=== PATIENT | male | born 1965 | race Caucasian/White ===

== ENCOUNTER 2017-05-29 16:32 | Inpatient (IN) | payer MEDICARE, MEDICAID ==
[~2017-05-29] VITALS: Ht 180.3 cm; Wt 77.1 kg
[~2017-05-29 16:32] MED LIST: CARV6.2551 PO; CHOL1CAP15 OR; FOLI1TAB6 PO; HYDR-3546 OR; IBUP400T21 PO; LISI10TA6 PO; SPIRPOW XX
[2017-05-29] MEDS ORDERED: SODIUM CHLORIDE 0.9% 1,000 ML IV ONE (16:36)
[2017-05-29] MEDS ORDERED: ASPirin 81 mg TAB PO ONE (16:45)
[2017-05-29 17:29] LABS: Basophils # (auto) 0 uL; Basophils % (auto) 0.2 % (0.0-2.0); CONDITION Y; Eosinophils # (auto) 0.1 uL; Eosinophils % (auto) 1.2 % (0.0-7.0); Hematocrit 46.9 % (41.0-53.0); Hemoglobin 16.1 g/dL (13.5-17.5); Lymphocytes # (auto) 1.2 uL; Lymphocytes % (auto) 16.7 % (10.0-50.0); Mean Corpuscular Hemoglobin 28.1 pg (28.0-32.0); Mean Corpuscular Hgb Conc. 34.4 g/dL (32.0-36.0); Mean Corpuscular Volume 81.6 fL (80.0-100.0); Mean Platelet Volume 9.3 fL (7.4-10.4); Monocytes # (auto) 0.5 uL; Monocytes % (auto) 6.3 % (0.0-12.0); Neutrophils # (auto) 5.5 uL; Neutrophils % (auto) 75.6 % (37.0-80.0); Platelet Count (auto) 209 10^3/uL (140-450); Red Cell Distribution Width 13.7 % (11.6-16.0); White Blood Cell 7.3 10^3/uL (4.4-10.8)
[2017-05-29 17:47] LABS: INR 0.99 (0.9-1.15); Partial Thromboplastin Time 31.3 sec (22.64-33.71); Prothrombin Time 10.8 sec (9.37-12.3)
[2017-05-29 17:49] LABS: Albumin 4.6 g/dL (3.4-5.0); BUN/Creatinine Ratio 57.1; Bilirubin, Total 0.5 mg/dL (0.2-1.0); Calcium 9.8 mg/dL (8.5-10.1); Potassium 3.7 mmol/L (3.5-5.1); Total Protein 8.6 g/dL (6.4-8.2)
[2017-05-29 19:30] LABS: Urine Bilirubin Negative (Negative); Urine Blood Negative /uL (Negative); Urine Color Yellow (Yellow); Urine Glucose Normal (Normal); Urine Ketone Negative (Negative); Urine Nitrite Negative (Negative); Urine RBC <1 /hpf (0 - 3); Urine Urobilinogen Normal (Negative); Urine pH 8.5 (5.0-8.0)
[2017-05-29] MEDS: FAMOTIDINE 20 MG TAB PO SCH (22:00)
[2017-05-29] MEDS: CARVEDILOL 3.125 MG TAB PO SCH (22:00)
[2017-05-29] MEDS ORDERED: MORPHINE SULF INJ 2 MG/ML SYRINGE 1ML IV PRN (22:00)
[2017-05-29] MEDS ORDERED: TEMAZEPAM 15 MG CAP PO PRN (22:00)
[2017-05-29] MEDS ORDERED: ONDANSETRON HCL 4 MG/2 ML VIAL IV PRN (22:00)
[2017-05-29] MEDS ORDERED: ACETAMINOPHEN 325 MG TAB PO PRN (22:00)
[2017-05-29] MEDS ORDERED: NITROGLYCERIN 0.4 MG SL TAB SL PRN (22:00)
[2017-05-29 23:00] VITALS: BP 128/85
[2017-05-29] MEDS ORDERED: FENO145T20 PO (23:48)
[2017-05-29] MEDS ORDERED: CHOL20009 PO (23:48)
[2017-05-29] MEDS ORDERED: SPIR25TA89 PO (23:48)
[2017-05-30 05:00] VITALS: BP 119/71
[2017-05-30 06:35] LABS: Basophils # (auto) 0 uL; Basophils % (auto) 0.3 % (0.0-2.0); CONDITION Y; Eosinophils # (auto) 0.1 uL; Eosinophils % (auto) 2.9 % (0.0-7.0); Hematocrit 40.8 % (41.0-53.0); Lymphocytes # (auto) 1.8 uL; Lymphocytes % (auto) 38.1 % (10.0-50.0); Mean Corpuscular Hemoglobin 28.2 pg (28.0-32.0); Mean Corpuscular Hgb Conc. 34.2 g/dL (32.0-36.0); Mean Corpuscular Volume 82.4 fL (80.0-100.0); Mean Platelet Volume 9.4 fL (7.4-10.4); Monocytes # (auto) 0.4 uL; Monocytes % (auto) 8.2 % (0.0-12.0); Neutrophils # (auto) 2.4 uL; Neutrophils % (auto) 50.5 % (37.0-80.0); Platelet Count (auto) 173 10^3/uL (140-450); Red Cell Distribution Width 13.6 % (11.6-16.0); White Blood Cell 4.7 10^3/uL (4.4-10.8)
[2017-05-30 06:44] LABS: Albumin 3.6 g/dL (3.4-5.0); BUN/Creatinine Ratio 86.4; Bilirubin, Total 0.3 mg/dL (0.2-1.0); Calcium 8.5 mg/dL (8.5-10.1); Potassium 3.5 mmol/L (3.5-5.1); Total Protein 6.6 g/dL (6.4-8.2)
[2017-05-30] MEDS: ENOXAPARIN SOD 40 MG/0.4 ML SYRINGE SC SCH (07:32)
[2017-05-30 07:41] VITALS: BP 111/77
[2017-05-30 09:00] VITALS: BP 112/58
[2017-05-30] MEDS: LISINOPRIL 10 MG TAB PO SCH (09:29)
[2017-05-30] MEDS: SPIRONOLACTONE 25 MG TAB PO SCH (09:30)
[2017-05-30] MEDS: ASPirin 81 mg TAB PO SCH (09:30)
[2017-05-30] MEDS: FOLIC ACID 1 MG TAB PO SCH (09:30)
[2017-05-30] MEDS: CARVEDILOL 3.125 MG TAB PO SCH ×2 (09:31→21:57)
[2017-05-30] MEDS: FAMOTIDINE 20 MG TAB PO SCH ×2 (09:31→21:56)
[2017-05-30 13:00] VITALS: BP 117/78
[2017-05-30 17:00] VITALS: BP 135/78
[2017-05-30 21:12] VITALS: BP 115/75
[2017-05-31 05:00] VITALS: BP 96/62
[2017-05-31 06:30] LABS: Basophils # (auto) 0 uL; Basophils % (auto) 0.4 % (0.0-2.0); CONDITION Y; Eosinophils # (auto) 0.2 uL; Eosinophils % (auto) 3.5 % (0.0-7.0); Hematocrit 41.1 % (41.0-53.0); Hemoglobin 14.3 g/dL (13.5-17.5); Lymphocytes # (auto) 1.7 uL; Lymphocytes % (auto) 36.7 % (10.0-50.0); Mean Corpuscular Hemoglobin 28.5 pg (28.0-32.0); Mean Corpuscular Hgb Conc. 34.7 g/dL (32.0-36.0); Mean Platelet Volume 9.6 fL (7.4-10.4); Monocytes # (auto) 0.4 uL; Monocytes % (auto) 9.1 % (0.0-12.0); Neutrophils # (auto) 2.3 uL; Neutrophils % (auto) 50.3 % (37.0-80.0); Platelet Count (auto) 152 10^3/uL (140-450); Red Cell Distribution Width 13.7 % (11.6-16.0); White Blood Cell 4.6 10^3/uL (4.4-10.8)
[2017-05-31 07:36] LABS: BUN/Creatinine Ratio 81.8; Magnesium 2.2 mg/dL (1.6-2.6); Phosphorus 3.4 mg/dL (2.5-4.90); Potassium 3.7 mmol/L (3.5-5.1)
[2017-05-31 08:25] VITALS: BP 108/74
[2017-05-31] MEDS: ASPirin 81 mg TAB PO SCH (09:25)
[2017-05-31] MEDS: FOLIC ACID 1 MG TAB PO SCH (09:25)
[2017-05-31] MEDS: SPIRONOLACTONE 25 MG TAB PO SCH (09:26)
[2017-05-31] MEDS: LISINOPRIL 10 MG TAB PO SCH (09:26)
[2017-05-31] MEDS: FAMOTIDINE 20 MG TAB PO SCH ×2 (09:26→21:29)
[2017-05-31] MEDS: CARVEDILOL 3.125 MG TAB PO SCH ×2 (09:26→21:29)
[2017-05-31] MEDS: ENOXAPARIN SOD 40 MG/0.4 ML SYRINGE SC SCH (09:27)
[2017-05-31 12:56] VITALS: BP 110/78
[2017-05-31 16:12] VITALS: BP 113/75
[2017-05-31 22:00] VITALS: BP 120/71
[2017-06-01] VITALS (11 sets, daily range): BP systolic 108–128; BP diastolic 68–82
[2017-06-01] MEDS ORDERED: ALPRAZolam 0.5 MG TAB PO ONE (05:00)
[2017-06-01 05:56] LABS: Basophils # (auto) 0 uL; Basophils % (auto) 0.3 % (0.0-2.0); CONDITION Y; Eosinophils # (auto) 0.1 uL; Eosinophils % (auto) 2.9 % (0.0-7.0); Hemoglobin 14.9 g/dL (13.5-17.5); Lymphocytes # (auto) 1.7 uL; Lymphocytes % (auto) 34.1 % (10.0-50.0); Mean Corpuscular Hemoglobin 28.4 pg (28.0-32.0); Mean Corpuscular Hgb Conc. 34.8 g/dL (32.0-36.0); Mean Corpuscular Volume 81.5 fL (80.0-100.0); Mean Platelet Volume 9.1 fL (7.4-10.4); Monocytes # (auto) 0.4 uL; Monocytes % (auto) 7.5 % (0.0-12.0); Neutrophils # (auto) 2.7 uL; Neutrophils % (auto) 55.2 % (37.0-80.0); Platelet Count (auto) 175 10^3/uL (140-450); Red Cell Distribution Width 13.9 % (11.6-16.0); White Blood Cell 4.9 10^3/uL (4.4-10.8)
[2017-06-01 06:17] LABS: Calcium 8.9 mg/dL (8.5-10.1); Magnesium 2.1 mg/dL (1.6-2.6); Phosphorus 3.2 mg/dL (2.5-4.90); Potassium 3.5 mmol/L (3.5-5.1)
[2017-06-01] MEDS ORDERED: IOHEXOL 350 MG/ML 100ML IJ ONE (08:44)
[2017-06-01] MEDS ORDERED: LIDOCAINE 2%HCL (LOCAL ANESTH.) INJ 20ML MDV ONE (08:44)
[2017-06-01] MEDS ORDERED: ANGIOMAX 250 MG VIAL IV ONE (08:46)
[2017-06-01] MEDS ORDERED: MIDAZOLAM HCL 1MG/1ML-2 ML VIAL ONE (08:47)
[2017-06-01] MEDS ORDERED: fentaNYL CITRATE 100 MCG/2 ML VL ONE (08:47)
[2017-06-01] MEDS ORDERED: SODIUM CHL 0.9% 0 ML ONE (08:47)
[2017-06-01] MEDS ORDERED: SODIUM CHLORIDE 0.9% 1,000 ML IV SCH (09:56)
[2017-06-01] MEDS: LISINOPRIL 10 MG TAB PO SCH (10:00)
[2017-06-01] MEDS: ENOXAPARIN SOD 40 MG/0.4 ML SYRINGE SC SCH (10:00)
[2017-06-01] MEDS: FAMOTIDINE 20 MG TAB PO SCH ×2 (11:02→21:56)
[2017-06-01] MEDS: SPIRONOLACTONE 25 MG TAB PO SCH (11:02)
[2017-06-01] MEDS: FOLIC ACID 1 MG TAB PO SCH (11:03)
[2017-06-01] MEDS: ASPirin 81 mg TAB PO SCH (11:03)
[2017-06-01] MEDS: CARVEDILOL 3.125 MG TAB PO SCH ×2 (11:04→21:55)
[2017-06-01] MEDS ORDERED: LORazepam 2MG/ML-1ML VIAL IV ONE (13:30)
[2017-06-01] MEDS: HYDROcodone-ACET 5/325MG TAB PO PRN (21:33)
[2017-06-02 05:54] VITALS: BP 113/66
[2017-06-02 08:25] VITALS: BP 103/67
[2017-06-02] MEDS: CARVEDILOL 3.125 MG TAB PO SCH ×2 (09:21→22:29)
[2017-06-02] MEDS: LISINOPRIL 10 MG TAB PO SCH (09:30)
[2017-06-02] MEDS: FOLIC ACID 1 MG TAB PO SCH (09:30)
[2017-06-02] MEDS: FAMOTIDINE 20 MG TAB PO SCH ×2 (09:30→22:30)
[2017-06-02] MEDS: SPIRONOLACTONE 25 MG TAB PO SCH (09:30)
[2017-06-02] MEDS: ASPirin 81 mg TAB PO SCH (09:31)
[2017-06-02] MEDS: ENOXAPARIN SOD 40 MG/0.4 ML SYRINGE SC SCH (09:31)
[2017-06-02 13:20] VITALS: BP 119/79
[2017-06-02] MEDS ORDERED: DOCUSATE SOD 100 MG CAP PO PRN (14:45)
[2017-06-02 17:24] VITALS: BP 115/76
[2017-06-02] MEDS: HYDROcodone-ACET 5/325MG TAB PO PRN (19:50)
[2017-06-02 22:00] VITALS: BP 129/81
[2017-06-03 06:05] VITALS: BP 107/61
[2017-06-03 08:11] VITALS: BP 127/84
[2017-06-03] MEDS: SPIRONOLACTONE 25 MG TAB PO SCH (09:23)
[2017-06-03] MEDS: ASPirin 81 mg TAB PO SCH (09:23)
[2017-06-03] MEDS: FOLIC ACID 1 MG TAB PO SCH (09:23)
[2017-06-03] MEDS: FAMOTIDINE 20 MG TAB PO SCH ×2 (09:24→21:18)
[2017-06-03] MEDS: LISINOPRIL 10 MG TAB PO SCH (09:24)
[2017-06-03] MEDS: CARVEDILOL 3.125 MG TAB PO SCH ×2 (09:24→21:17)
[2017-06-03] MEDS: ENOXAPARIN SOD 40 MG/0.4 ML SYRINGE SC SCH (09:25)
[2017-06-03 12:35] VITALS: BP 131/77
[2017-06-03 17:02] VITALS: BP 121/78
[2017-06-03 21:30] VITALS: BP 122/72
[2017-06-04] MEDS: SODIUM CHLORIDE 0.9% 1,000 ML IV SCH ×2 (00:46→17:40)
[2017-06-04 05:00] VITALS: BP 122/83
[2017-06-04 08:31] VITALS: BP 124/74
[2017-06-04 08:37] LABS: INR 0.98 (0.9-1.15); Prothrombin Time 10.7 sec (9.37-12.3)
[2017-06-04] MEDS: FAMOTIDINE 20 MG TAB PO SCH ×2 (09:25→21:39)
[2017-06-04] MEDS: LISINOPRIL 10 MG TAB PO SCH (09:25)
[2017-06-04] MEDS: CARVEDILOL 3.125 MG TAB PO SCH ×2 (09:26→21:31)
[2017-06-04] MEDS: ENOXAPARIN SOD 40 MG/0.4 ML SYRINGE SC SCH (09:32)
[2017-06-04] MEDS: SPIRONOLACTONE 25 MG TAB PO SCH (10:00)
[2017-06-04] MEDS: ASPirin 81 mg TAB PO SCH (10:00)
[2017-06-04] MEDS: FOLIC ACID 1 MG TAB PO SCH (10:00)
[2017-06-04] MEDS ORDERED: LIDOCAINE 2%HCL (LOCAL ANESTH.) INJ 20ML MDV ONE (12:19)
[2017-06-04] MEDS ORDERED: IOHEXOL 350 MG/ML 100ML IJ ONE (12:19)
[2017-06-04] MEDS ORDERED: ceFAZolin 1GM/50ML D5W 50 ML IV ONE (12:30)
[2017-06-04] MEDS ORDERED: VANCOMYCIN 1GM/250ML D5W 250 ML IV ONE (12:30)
[2017-06-04] MEDS ORDERED: MIDAZOLAM HCL 1MG/1ML-2 ML VIAL ONE (12:40)
[2017-06-04] MEDS ORDERED: VANCOMYCIN HCL 1000 MG VL ONE (12:41)
[2017-06-04] MEDS ORDERED: fentaNYL CITRATE 100 MCG/2 ML VL ONE (12:41)
[2017-06-04] MEDS ORDERED: diphenhdrAMINE HCL 50 MG/1 ML VL ONE (12:52)
[2017-06-04 13:00] VITALS: BP 125/81
[2017-06-04] MEDS ORDERED: SODIUM CHLORIDE 0.9% 1,000 ML IV SCH (14:48)
[2017-06-04] MEDS ORDERED: ACETAMINOPHEN 325 MG TAB PO PRN (15:00)
[2017-06-04] MEDS ORDERED: LORazepam 0.5 MG TAB PO PRN (15:00)
[2017-06-04 17:00] VITALS: BP 125/73
[2017-06-04] MEDS: HYDROcodone-ACET 5/325MG TAB PO PRN ×2 (18:17→21:39)
[2017-06-04] MEDS: VANCOMYCIN 1GM/250ML D5W 250 ML IV SCH (21:17)
[2017-06-04 21:39] VITALS: BP 119/76
[2017-06-05] MEDS: HYDROcodone-ACET 5/325MG TAB PO PRN ×3 (04:18→15:19)
[2017-06-05 05:00] VITALS: BP 122/74
[2017-06-05] MEDS: ENOXAPARIN SOD 40 MG/0.4 ML SYRINGE SC SCH (07:16)
[2017-06-05 08:29] VITALS: BP 124/73
[2017-06-05] MEDS: SPIRONOLACTONE 25 MG TAB PO SCH (09:16)
[2017-06-05] MEDS: LISINOPRIL 10 MG TAB PO SCH (09:17)
[2017-06-05] MEDS: FOLIC ACID 1 MG TAB PO SCH (09:17)
[2017-06-05] MEDS: VANCOMYCIN 1GM/250ML D5W 250 ML IV SCH (09:18)
[2017-06-05] MEDS: FAMOTIDINE 20 MG TAB PO SCH (09:22)
[2017-06-05] MEDS: CARVEDILOL 3.125 MG TAB PO SCH (09:23)
[2017-06-05] MEDS: ASPirin 81 mg TAB PO SCH (10:00)
[2017-06-05] MEDS: SODIUM CHLORIDE 0.9% 1,000 ML IV SCH (10:22)
[2017-06-05 13:23] VITALS: BP 121/73
[2017-06-05 16:58] VITALS: BP 124/73
== END 2017-06-05 17:45 | disposition home health service (06) | DRG 222 ==
LOC: EDBD 16:32 → ER 16:32 → TELE 16:33 → TELE-WESTW 22:55
PROVIDERS: ADMIT Internal Medicine; ATTEND Family Medicine
PROC: 4A023N7 Measurement of Cardiac Sampling and Pressure, Left Heart, Percutaneous Approach (ICD-10-PCS; 2017-06-01)
PROC: B2111ZZ Fluoroscopy of Multiple Coronary Arteries using Low Osmolar Contrast (ICD-10-PCS; 2017-06-01)
PROC: B2151ZZ Fluoroscopy of Left Heart using Low Osmolar Contrast (ICD-10-PCS; 2017-06-01)
PROC: B41F1ZZ Fluoroscopy of Right Lower Extremity Arteries using Low Osmolar Contrast (ICD-10-PCS; 2017-06-01)
PROC: 0JH609Z Insertion of Cardiac Resynchronization Defibrillator Pulse Generator into Chest Subcutaneous Tissue and Fascia, Open Approach (ICD-10-PCS; principal; 2017-06-04)
PROC: 02HL3KZ Insertion of Defibrillator Lead into Left Ventricle, Percutaneous Approach (ICD-10-PCS; 2017-06-04)
PROC: 02HK3KZ Insertion of Defibrillator Lead into Right Ventricle, Percutaneous Approach (ICD-10-PCS; 2017-06-04)
PROC: 02H63KZ Insertion of Defibrillator Lead into Right Atrium, Percutaneous Approach (ICD-10-PCS; 2017-06-04)
DX: I11.0 Hypertensive heart disease with heart failure (principal); I21.4 Non-ST elevation (NSTEMI) myocardial infarction; G82.50 Quadriplegia, unspecified; G71.0 Muscular dystrophy; I50.23 Acute on chronic systolic (congestive) heart failure; I42.0 Dilated cardiomyopathy; I25.110 Atherosclerotic heart disease of native coronary artery with unstable angina pectoris; I25.5 Ischemic cardiomyopathy; G70.9 Myoneural disorder, unspecified; M47.816 Spondylosis without myelopathy or radiculopathy, lumbar region; M48.02 Spinal stenosis, cervical region; F41.9 Anxiety disorder, unspecified; M50.31 Other cervical disc degeneration, high cervical region; M50.323 Other cervical disc degeneration at C6-C7 level; Z87.891 Personal history of nicotine dependence; Z82.49 Family history of ischemic heart disease and other diseases of the circulatory system; Z95.0 Presence of cardiac pacemaker; Z81.1 Family history of alcohol abuse and dependence; Z88.8 Allergy status to other drugs, medicaments and biological substances
CPT/HCPCS: 36415; 71010; 72141; 72146; 72148; 80048; 80053; 80061; 81001; 82550; 83735; 84100; 84443; 84484; 85025; 85610; 85730; 93005; 93306; 96360; 96361; 99152; C1769; J0690; J2250

== ENCOUNTER 2021-08-18 03:27 | Inpatient (IN) | payer OTHER, MEDICAID ==
[~2021-08-18] VITALS: Ht 180.3 cm; Wt 85.0 kg
[~2021-08-18 03:27] MED LIST changes: -CHOL1CAP15 OR; +CHOL20009 PO; +FENO145T27 PO; -HYDR-3546 OR; -IBUP400T21 PO; -LISI10TA6 PO; +SPIR25TA8 PO; -SPIRPOW XX
[2021-08-18 04:25] LABS: Basophils # (auto) 0 10 ^3/uL (0-0.2); Basophils % (auto) 0.1 % (0.0-2.0); Eosinophils # (auto) 0.1 10 ^3/uL (0-0.8); Eosinophils % (auto) 1.5 % (0.0-7.0); Hematocrit 42.1 % (41.0-53.0); Hemoglobin 14.6 g/dL (13.5-17.5); Lymphocytes # (auto) 1.1 10 ^3/uL (0.4-5.4); Mean Corpuscular Hemoglobin 29.3 pg (28.0-32.0); Mean Corpuscular Hgb Conc. 34.7 g/dL (32.0-36.0); Mean Corpuscular Volume 84.5 fL (80.0-100.0); Monocytes # (auto) 0.6 10 ^3/uL (0-1.3); Monocytes % (auto) 7.9 % (0.0-12.0); Neutrophils # (auto) 5.7 10 ^3/uL (1.6-8.6); Neutrophils % (auto) 75.5 % (37.0-80.0); Red Blood Cells 4.99 10^6/uL (4.5-5.90); Red Cell Distribution Width 13.2 % (11.8-14.3); White Blood Cell 7.6 10^3/uL (4.4-10.8)
[2021-08-18 04:53] LABS: Albumin 3.6 g/dL (3.4-5.0); BUN/Creatinine Ratio 83.3; Calcium 8.7 mg/dL (8.5-10.1); Potassium 4.1 mmol/L (3.5-5.1)
[2021-08-18 04:57] LABS: Bilirubin, Total 0.7 mg/dL (0.2-1.0)
[2021-08-18] MEDS ORDERED: ASPirin 325 MG TAB PO ONE (05:15)
[2021-08-18] MEDS ORDERED: MORPHINE SULFATE INJECTION 2 MG/ML SYRG IV PRN ×3 (09:00→09:45)
[2021-08-18] MEDS ORDERED: NITROGLYCERIN 0.4 MG SL TAB SL PRN ×2 (09:00→09:45)
[2021-08-18] MEDS ORDERED: ENOXAPARIN SOD 80 MG/0.8ML SYRINGE SC ONE ×2 (09:15→09:30)
[2021-08-18] MEDS ORDERED: ATORVASTATIN 20 MG TAB PO ONE (09:30)
[2021-08-18] MEDS ORDERED: BENAZEPRIL HCL 10 MG TAB PO ONE (09:30)
[2021-08-18] MEDS ORDERED: METOPROLOL SUCCINATE XL 50 MG TAB PO ONE (09:30)
[2021-08-18] MEDS ORDERED: ALUM & MAG HYDROX-SIMETH LIQ(MAALOX) 30 ML PO PRN (09:45)
[2021-08-18] MEDS ORDERED: LORazepam 0.5 MG TAB PO PRN (09:45)
[2021-08-18] MEDS ORDERED: HYDROcodone-ACET 5/325MG TAB PO PRN (09:45)
[2021-08-18] MEDS ORDERED: ONDANSETRON HCL 4 MG/2 ML VIAL IV PRN (09:45)
[2021-08-18] MEDS ORDERED: ACETAMINOPHEN 325 MG TAB PO PRN (09:45)
[2021-08-18 09:56] LABS: Cholesterol 152 mg/dL (< 200)
[2021-08-18 09:59] LABS: HDL Cholesterol 38 mg/dL (40-59); LDL Cholesterol 78 mg/dL (< 100); Triglycerides 217 mg/dL (< 150)
[2021-08-18] MEDS: METOPROLOL SUCCINATE XL 50 MG TAB PO SCH (10:00)
[2021-08-18] MEDS: ASPirin 81 mg TAB PO SCH (10:00)
[2021-08-18] MEDS: SODIUM CHLORIDE 0.9% 1,000 ML IV SCH (10:00)
[2021-08-18] MEDS ORDERED: LISI-275 PO (14:31)
[2021-08-18] MEDS: FUROSEMIDE 20 MG/2 ML VIAL IV SCH (17:55)
[2021-08-18 20:20] VITALS: BP 124/68
[2021-08-18] MEDS: ATORVASTATIN 20 MG TAB PO SCH (21:24)
[2021-08-18 22:00] VITALS: BP_SYST 124; BP_SYST 134; BP_DIAS 68; BP_DIAS 87
[2021-08-19 05:00] VITALS: BP 118/81
[2021-08-19] MEDS: SODIUM CHLORIDE 0.9% 1,000 ML IV SCH (05:05)
[2021-08-19] MEDS: FUROSEMIDE 20 MG/2 ML VIAL IV SCH ×2 (05:45→18:00)
[2021-08-19 06:05] LABS: INR 1.07 (0.9-1.15); Partial Thromboplastin Time 32.7 sec (23.6-33.0)
[2021-08-19 06:16] LABS: Albumin 3.8 g/dL (3.4-5.0); Calcium 8.5 mg/dL (8.5-10.1); Magnesium 2.3 mg/dL (1.6-2.6); Potassium 3.7 mmol/L (3.5-5.1)
[2021-08-19 06:17] LABS: Basophils # (auto) 0 10 ^3/uL (0-0.2); Basophils % (auto) 0.2 % (0.0-2.0); Eosinophils # (auto) 0.1 10 ^3/uL (0-0.8); Eosinophils % (auto) 1.7 % (0.0-7.0); Hematocrit 42.6 % (41.0-53.0); Hemoglobin 14.8 g/dL (13.5-17.5); Lymphocytes # (auto) 1.3 10 ^3/uL (0.4-5.4); Mean Corpuscular Hemoglobin 29.8 pg (28.0-32.0); Mean Corpuscular Hgb Conc. 34.7 g/dL (32.0-36.0); Mean Corpuscular Volume 85.9 fL (80.0-100.0); Monocytes # (auto) 0.5 10 ^3/uL (0-1.3); Monocytes % (auto) 10.1 % (0.0-12.0); Neutrophils # (auto) 3.1 10 ^3/uL (1.6-8.6); Nucleated Red Blood Cells % 0.2 %; Red Blood Cells 4.96 10^6/uL (4.5-5.90); Red Cell Distribution Width 13.2 % (11.8-14.3)
[2021-08-19 06:24] LABS: BUN/Creatinine Ratio 91.7; Bilirubin, Total 0.7 mg/dL (0.2-1.0); Phosphorus 2.2 mg/dL (2.5-4.90); Total Protein 6.9 g/dL (6.4-8.2)
[2021-08-19 09:00] VITALS: BP 116/71
[2021-08-19] MEDS: BENAZEPRIL HCL 10 MG TAB PO SCH (10:00)
[2021-08-19] MEDS: METOPROLOL SUCCINATE XL 50 MG TAB PO SCH (10:00)
[2021-08-19] MEDS: ASPirin 81 mg TAB PO SCH (10:03)
[2021-08-19 13:00] VITALS: BP 121/74
[2021-08-19 16:57] VITALS: BP 117/67
[2021-08-19] MEDS: ATORVASTATIN 20 MG TAB PO SCH (21:22)
[2021-08-19 22:30] VITALS: BP 118/72
[2021-08-20] MEDS: SODIUM CHLORIDE 0.9% 1,000 ML IV SCH ×2 (00:47→11:30)
[2021-08-20 05:00] VITALS: BP 116/69
[2021-08-20] MEDS: FUROSEMIDE 20 MG/2 ML VIAL IV SCH ×2 (06:00→18:00)
[2021-08-20 09:00] VITALS: BP 124/59
[2021-08-20] MEDS: METOPROLOL SUCCINATE XL 50 MG TAB PO SCH (10:09)
[2021-08-20] MEDS: BENAZEPRIL HCL 10 MG TAB PO SCH (10:11)
[2021-08-20] MEDS: ASPirin 81 mg TAB PO SCH (10:12)
[2021-08-20 13:00] VITALS: BP 110/69
[2021-08-20 17:00] VITALS: BP 113/70
[2021-08-20] MEDS: ATORVASTATIN 20 MG TAB PO SCH (21:39)
[2021-08-20 22:00] VITALS: BP 104/63
[2021-08-21] MEDS: SODIUM CHLORIDE 0.9% 1,000 ML IV SCH ×2 (04:38→20:50)
[2021-08-21 05:00] VITALS: BP 94/60
[2021-08-21] MEDS: FUROSEMIDE 20 MG/2 ML VIAL IV SCH ×3 (05:59→18:17)
[2021-08-21 08:46] VITALS: BP 105/80
[2021-08-21] MEDS: ASPirin 81 mg TAB PO SCH (09:57)
[2021-08-21] MEDS: BENAZEPRIL HCL 10 MG TAB PO SCH (09:57)
[2021-08-21] MEDS: METOPROLOL SUCCINATE XL 50 MG TAB PO SCH (09:58)
[2021-08-21] MEDS: DOCUSATE SOD 100 MG CAP PO PRN ×2 (12:07→21:31)
[2021-08-21 13:00] VITALS: BP 119/83
[2021-08-21 17:00] VITALS: BP 112/69
[2021-08-21] MEDS: ATORVASTATIN 20 MG TAB PO SCH (21:32)
[2021-08-21 22:00] VITALS: BP 115/71
[2021-08-22 05:00] VITALS: BP 103/57
[2021-08-22] MEDS: FUROSEMIDE 20 MG/2 ML VIAL IV SCH ×2 (06:00→18:00)
[2021-08-22 09:00] VITALS: BP 98/55
[2021-08-22 09:13] LABS: Basophils # (auto) 0 10 ^3/uL (0-0.2); Eosinophils # (auto) 0.1 10 ^3/uL (0-0.8); Eosinophils % (auto) 1.9 % (0.0-7.0); Hematocrit 42.1 % (41.0-53.0); Hemoglobin 14.8 g/dL (13.5-17.5); Lymphocytes # (auto) 1.1 10 ^3/uL (0.4-5.4); Lymphocytes % (auto) 19.5 % (10.0-50.0); Mean Corpuscular Hemoglobin 29.9 pg (28.0-32.0); Mean Corpuscular Hgb Conc. 35.1 g/dL (32.0-36.0); Mean Corpuscular Volume 85.1 fL (80.0-100.0); Monocytes # (auto) 0.4 10 ^3/uL (0-1.3); Monocytes % (auto) 7.7 % (0.0-12.0); Neutrophils # (auto) 4.1 10 ^3/uL (1.6-8.6); Neutrophils % (auto) 70.9 % (37.0-80.0); Red Blood Cells 4.95 10^6/uL (4.5-5.90); Red Cell Distribution Width 13.1 % (11.8-14.3); White Blood Cell 5.8 10^3/uL (4.4-10.8)
[2021-08-22 09:27] LABS: INR 1.09 (0.9-1.15)
[2021-08-22 09:33] LABS: Albumin 3.6 g/dL (3.4-5.0); Calcium 8.5 mg/dL (8.5-10.1)
[2021-08-22 09:36] LABS: BUN/Creatinine Ratio 104.5; Bilirubin, Total 0.6 mg/dL (0.2-1.0); Total Protein 6.6 g/dL (6.4-8.2)
[2021-08-22] MEDS: BENAZEPRIL HCL 10 MG TAB PO SCH (10:11)
[2021-08-22] MEDS: METOPROLOL SUCCINATE XL 50 MG TAB PO SCH (10:12)
[2021-08-22 13:00] VITALS: BP 109/77
[2021-08-22] MEDS: SODIUM CHLORIDE 0.9% 1,000 ML IV SCH (13:30)
[2021-08-22 17:00] VITALS: BP 104/68
[2021-08-22] MEDS: ATORVASTATIN 20 MG TAB PO SCH (21:20)
[2021-08-22 21:39] VITALS: BP 115/70
[2021-08-23 05:17] VITALS: BP 121/67
[2021-08-23] MEDS: SODIUM CHLORIDE 0.9% 1,000 ML IV SCH ×2 (06:10→22:50)
[2021-08-23] MEDS: FUROSEMIDE 20 MG/2 ML VIAL IV SCH ×2 (06:14→17:26)
[2021-08-23] MEDS ORDERED: LIDOCAINE 2%HCL (LOCAL ANESTH.) INJ 20ML MDV ONE (07:17)
[2021-08-23] MEDS ORDERED: IOHEXOL 350 MG/ML 100ML IJ ONE (07:17)
[2021-08-23] MEDS ORDERED: VANCOMYCIN 1GM/250ML 250 ML IV ONE (07:41)
[2021-08-23] MEDS ORDERED: VANCOMYCIN HCL 1000 MG VL ONE (07:44)
[2021-08-23] MEDS: BENAZEPRIL HCL 10 MG TAB PO SCH (10:15)
[2021-08-23] MEDS: METOPROLOL SUCCINATE XL 50 MG TAB PO SCH (10:16)
[2021-08-23 13:00] VITALS: BP 109/66
[2021-08-23 17:00] VITALS: BP 101/79
[2021-08-23 22:00] VITALS: BP 118/73
[2021-08-23] MEDS: ATORVASTATIN 20 MG TAB PO SCH (22:00)
[2021-08-24 05:00] VITALS: BP_SYST 111; BP_SYST 118; BP_DIAS 70; BP_DIAS 73
[2021-08-24] MEDS: FUROSEMIDE 20 MG/2 ML VIAL IV SCH (06:00)
[2021-08-24] MEDS: METOPROLOL SUCCINATE XL 50 MG TAB PO SCH (08:59)
[2021-08-24 09:08] VITALS: BP 107/67
[2021-08-24] MEDS: BENAZEPRIL HCL 10 MG TAB PO SCH (10:00)
[2021-08-24 13:00] VITALS: BP 115/79
== END 2021-08-24 16:37 | disposition left against medical advice (07) | DRG 309 ==
LOC: ER 03:27 → EDBD 03:27 → TELE 09:33 → TELE-WESTW 20:13
PROVIDERS: ADMIT Hospitalist; ATTEND Internal Medicine
PROC: 4B02XTZ Measurement of Cardiac Defibrillator, External Approach (ICD-10-PCS; 2021-08-21)
PROC: B5171ZZ Fluoroscopy of Left Subclavian Vein using Low Osmolar Contrast (ICD-10-PCS; principal; 2021-08-23)
DX: T82.110A Breakdown (mechanical) of cardiac electrode, initial encounter (principal); I50.22 Chronic systolic (congestive) heart failure; I42.9 Cardiomyopathy, unspecified; I82.B12 Acute embolism and thrombosis of left subclavian vein; G71.01 Duchenne or Becker muscular dystrophy; I11.0 Hypertensive heart disease with heart failure; I25.10 Atherosclerotic heart disease of native coronary artery without angina pectoris; F41.9 Anxiety disorder, unspecified; I50.82 Biventricular heart failure; E78.5 Hyperlipidemia, unspecified; Z53.29 Procedure and treatment not carried out because of patient's decision for other reasons; Y71.2 Prosthetic and other implants, materials and accessory cardiovascular devices associated with adverse incidents; Z60.2 Problems related to living alone; Z74.01 Bed confinement status; Z82.49 Family history of ischemic heart disease and other diseases of the circulatory system; Z79.899 Other long term (current) drug therapy; Z95.810 Presence of automatic (implantable) cardiac defibrillator; Z99.3 Dependence on wheelchair; Z20.822 Contact with and (suspected) exposure to COVID-19
CPT/HCPCS: 36415; 71045; 75820; 80053; 80061; 83036; 83735; 83880; 84100; 84443; 84484; 85025; 85610; 85730; 87040; 87426; 93005; 93306; 96360; 96372; 99152; 99153; G0378

== ENCOUNTER 2022-12-05 14:26 | Emergency (ER) | payer OTHER, MEDICAID ==
[~2022-12-05] VITALS: Ht 180.3 cm; Wt 79.0 kg
[~2022-12-05 14:26] MED LIST changes: +LISI-275 PO
[2022-12-05 15:12] LABS: Basophils # (auto) 0 10 ^3/uL (0-0.2); Basophils % (auto) 0.1 % (0.0-2.0); Eosinophils # (auto) 0.1 10 ^3/uL (0-0.8); Eosinophils % (auto) 0.7 % (0.0-7.0); Hematocrit 49.5 % (41.0-53.0); Lymphocytes # (auto) 1.2 10 ^3/uL (0.4-5.4); Lymphocytes % (auto) 13.6 % (10.0-50.0); Mean Corpuscular Hemoglobin 29.3 pg (28.0-32.0); Mean Corpuscular Hgb Conc. 34.3 g/dL (32.0-36.0); Mean Corpuscular Volume 85.2 fL (80.0-100.0); Monocytes # (auto) 0.5 10 ^3/uL (0-1.3); Monocytes % (auto) 5.8 % (0.0-12.0); Neutrophils # (auto) 7.1 10 ^3/uL (1.6-8.6); Neutrophils % (auto) 79.8 % (37.0-80.0); Nucleated Red Blood Cells % 0.4 %; Red Blood Cells 5.81 10^6/uL (4.5-5.90); Red Cell Distribution Width 12.9 % (11.8-14.3); White Blood Cell 8.9 10^3/uL (4.4-10.8)
[2022-12-05 15:49] LABS: Albumin 4.4 g/dL (3.4-5.0); Calcium 9.2 mg/dL (8.5-10.1); Potassium 4.3 mmol/L (3.5-5.1)
[2022-12-05 15:52] LABS: Bilirubin, Total 0.9 mg/dL (0.2-1.0); Total Protein 7.8 g/dL (6.4-8.2)
[2022-12-05] MEDS ORDERED: ASPirin 81 mg TAB PO ONE (16:30)
[2022-12-05] MEDS ORDERED: SOTA80TA PO (20:26)
[2022-12-05] MEDS ORDERED: SOTALOL HCL 80 MG TAB PO ONE (20:30)
[2022-12-05] MEDS ORDERED: METO25TA93 PO (20:33)
[2022-12-05 21:11] VITALS: BP 125/77
== END 2022-12-05 21:12 | disposition home or self-care (01) ==
LOC: EDBD 14:26 → ER 14:26
DX: I24.9 Acute ischemic heart disease, unspecified (principal); R00.2 Palpitations; I11.0 Hypertensive heart disease with heart failure; I50.9 Heart failure, unspecified; Z87.891 Personal history of nicotine dependence; Z88.8 Allergy status to other drugs, medicaments and biological substances
CPT/HCPCS: 36415; 71045; 80053; 83735; 83880; 84484; 85025; 85379; 93005

== ENCOUNTER 2023-02-10 15:51 | Inpatient (IN) | payer OTHER, MEDICAID ==
[~2023-02-10] VITALS: Ht 172.7 cm; Wt 77.2 kg
[~2023-02-10 15:51] MED LIST changes: +METO25TA93 PO
[2023-02-10] MEDS ORDERED: SODIUM CHLORIDE 0.9% 1,000 ML IV ONE (16:30)
[2023-02-10 16:55] LABS: Basophils # (auto) 0 10 ^3/uL (0-0.2); Basophils % (auto) 0.1 % (0.0-2.0); Eosinophils # (auto) 0 10 ^3/uL (0-0.8); Eosinophils % (auto) 0.1 % (0.0-7.0); Hematocrit 46.4 % (41.0-53.0); Hemoglobin 16.4 g/dL (13.5-17.5); Lymphocytes # (auto) 0.2 10 ^3/uL (0.4-5.4); Lymphocytes % (auto) 2.8 % (10.0-50.0); Mean Corpuscular Hemoglobin 29.3 pg (28.0-32.0); Mean Corpuscular Hgb Conc. 35.3 g/dL (32.0-36.0); Monocytes # (auto) 0.2 10 ^3/uL (0-1.3); Monocytes % (auto) 2.6 % (0.0-12.0); Neutrophils # (auto) 7.6 10 ^3/uL (1.6-8.6); Neutrophils % (auto) 94.4 % (37.0-80.0); Red Blood Cells 5.58 10^6/uL (4.5-5.90); Red Cell Distribution Width 12.9 % (11.8-14.3); White Blood Cell 8.1 10^3/uL (4.4-10.8)
[2023-02-10 17:10] LABS: Calcium 8.9 mg/dL (8.5-10.1); Magnesium 2.1 mg/dL (1.6-2.6)
[2023-02-10 17:14] LABS: BUN/Creatinine Ratio 70.4 (10.0-20.0); Bilirubin, Total 0.6 mg/dL (0.2-1.0)
[2023-02-10] MEDS ORDERED: ACETAMINOPHEN 325 MG TAB PO ONE (17:15)
[2023-02-10] MEDS ORDERED: ASPirin 81 mg TAB PO ONE (18:30)
[2023-02-10] MEDS ORDERED: CLOPIDOGREL BISULFATE 75 MG TAB PO ONE (18:30)
[2023-02-10] MEDS ORDERED: FUROSEMIDE 40 MG/4 ML VIAL IV ONE (19:15)
[2023-02-10] MEDS ORDERED: NITROGLYCERIN 0.4 MG SL TAB SL PRN (21:45)
[2023-02-10] MEDS ORDERED: MORPHINE SULFATE INJ 2 MG/ml SYRG IV PRN (21:45)
[2023-02-10] MEDS ORDERED: DOCUSATE SOD 100 MG CAP PO PRN (21:45)
[2023-02-10] MEDS ORDERED: ACETAMINOPHEN 325 MG TAB PO PRN (21:45)
[2023-02-10] MEDS ORDERED: HYDROcodone-ACET 5/325MG TAB PO PRN (21:45)
[2023-02-10] MEDS ORDERED: ONDANSETRON HCL 4 MG/2 ML VIAL IV PRN (21:45)
[2023-02-10] MEDS: SODIUM CHLOR 0.9% PF (SALINE LOCK) 10ML VIAL/SYR IV SCH (22:00)
[2023-02-10] MEDS ORDERED: diphenhdrAMINE HCL 50 MG/1 ML VL IV PRN (22:00)
[2023-02-10] MEDS: CARVEDILOL 3.125 MG TAB PO SCH (22:48)
[2023-02-11 05:50] LABS: Basophils # (auto) 0 10 ^3/uL (0-0.2); Basophils % (auto) 0.2 % (0.0-2.0); Eosinophils # (auto) 0 10 ^3/uL (0-0.8); Eosinophils % (auto) 0.1 % (0.0-7.0); Hematocrit 38.7 % (41.0-53.0); Hemoglobin 13.8 g/dL (13.5-17.5); Lymphocytes # (auto) 0.5 10 ^3/uL (0.4-5.4); Lymphocytes % (auto) 10.6 % (10.0-50.0); Mean Corpuscular Hemoglobin 29.7 pg (28.0-32.0); Mean Corpuscular Hgb Conc. 35.7 g/dL (32.0-36.0); Mean Corpuscular Volume 83.4 fL (80.0-100.0); Monocytes # (auto) 0.4 10 ^3/uL (0-1.3); Monocytes % (auto) 9.1 % (0.0-12.0); Neutrophils # (auto) 3.6 10 ^3/uL (1.6-8.6); Nucleated Red Blood Cells % 0.6 %; Red Blood Cells 4.64 10^6/uL (4.5-5.90); Red Cell Distribution Width 12.7 % (11.8-14.3); White Blood Cell 4.5 10^3/uL (4.4-10.8)
[2023-02-11] MEDS: SODIUM CHLOR 0.9% PF (SALINE LOCK) 10ML VIAL/SYR IV SCH (06:00)
[2023-02-11] MEDS ORDERED: BUMETANIDE 2.5mg/10ml (0.25 mg/ml) INJ IV SCH (06:00)
[2023-02-11 06:14] LABS: Urine Bacteria NONE SEEN /hpf (None Seen); Urine Blood Negative /uL (Negative); Urine Mucus FEW (None Seen); Urine Specific Gravity 1.037 (1.001-1.035); Urine WBC 1 /hpf (0 - 3)
[2023-02-11 06:26] LABS: Calcium 7.7 mg/dL (8.5-10.1)
[2023-02-11 06:30] LABS: BUN/Creatinine Ratio 55.6 (10.0-20.0); Bilirubin, Total 0.5 mg/dL (0.2-1.0); Total Protein 5.5 g/dL (6.4-8.2)
[2023-02-11] MEDS ORDERED: POTASSIUM CHL 20 Meq TABLET PO ONE (07:00)
[2023-02-11] MEDS: CARVEDILOL 3.125 MG TAB PO SCH (10:00)
[2023-02-11] MEDS ORDERED: FUROSEMIDE 40 MG/4 ML VIAL IV SCH (10:00)
[2023-02-11] MEDS ORDERED: ASPirin 81 mg TAB PO SCH (10:00)
[2023-02-11 14:13] VITALS: BP 116/54
[2023-02-11] MEDS ORDERED: ATORVASTATIN 20 MG TAB PO SCH (22:00)
== END 2023-02-11 14:13 | disposition home or self-care (01) | DRG 280 ==
LOC: EDBD 15:51 → ER 15:51 → TELE 21:41
PROVIDERS: ADMIT Nurse Practitioner Family; ATTEND Family Medicine
DX: I11.0 Hypertensive heart disease with heart failure (principal); I21.A1 Myocardial infarction type 2; I50.23 Acute on chronic systolic (congestive) heart failure; E78.00 Pure hypercholesterolemia, unspecified; I42.8 Other cardiomyopathies; I25.10 Atherosclerotic heart disease of native coronary artery without angina pectoris; I49.3 Ventricular premature depolarization; F41.9 Anxiety disorder, unspecified; R09.89 Other specified symptoms and signs involving the circulatory and respiratory systems; G71.00 Muscular dystrophy, unspecified; Z20.822 Contact with and (suspected) exposure to COVID-19; Z82.49 Family history of ischemic heart disease and other diseases of the circulatory system; Z91.119 Patient's noncompliance with dietary regimen due to unspecified reason; Z95.810 Presence of automatic (implantable) cardiac defibrillator; Z88.8 Allergy status to other drugs, medicaments and biological substances; Z79.82 Long term (current) use of aspirin
CPT/HCPCS: 36415; 71045; 80053; 81001; 83605; 83735; 83880; 84484; 85025; 85379; 87040; 87426; 87804; 93005; 96360; G0378

== ENCOUNTER → 2023-06-23 | Emergency (ER) | payer OTHER, MEDICAID ==
[~2023-06-23] VITALS: Ht 180.3 cm; Wt 79.5 kg
[~2023-06-23] MED LIST changes: +ASPirin 81 mg TAB PO ONE; +FOLI-119 PO; -FOLI1TAB6 PO; +SODIUM CHLORIDE 0.9% 1,000 ML IV ONE
[2023-06-23 12:06] LABS: Basophils # (auto) 0 10 ^3/uL (0-0.2); Basophils % (auto) 0.2 % (0.0-2.0); Eosinophils # (auto) 0.1 10 ^3/uL (0-0.8); Eosinophils % (auto) 1.3 % (0.0-7.0); Hematocrit 46.5 % (41.0-53.0); Hemoglobin 16.1 g/dL (13.5-17.5); Lymphocytes % (auto) 17.3 % (10.0-50.0); Mean Corpuscular Hemoglobin 29.1 pg (28.0-32.0); Mean Corpuscular Hgb Conc. 34.7 g/dL (32.0-36.0); Mean Corpuscular Volume 83.9 fL (80.0-100.0); Monocytes # (auto) 0.3 10 ^3/uL (0-1.3); Monocytes % (auto) 6.1 % (0.0-12.0); Neutrophils # (auto) 4.2 10 ^3/uL (1.6-8.6); Neutrophils % (auto) 75.1 % (37.0-80.0); Nucleated Red Blood Cells % 0.3 %; Red Blood Cells 5.54 10^6/uL (4.5-5.90); Red Cell Distribution Width 13.4 % (11.8-14.3); White Blood Cell 5.6 10^3/uL (4.4-10.8)
[2023-06-23 12:22] LABS: INR 1.04 (0.9-1.15); Partial Thromboplastin Time 31.9 SEC (24.5-34.5); Prothrombin Time 10.9 sec (9.3-11.8)
[2023-06-23 12:39] VITALS: PULSE 82; RESP 14; O2SAT 96
[2023-06-23 12:43] LABS: Potassium 4.4 mmol/L (3.5-5.1)
[2023-06-23 12:50] LABS: Albumin 4.3 g/dL (3.4-5.0); BUN/Creatinine Ratio 82.1 (10.0-20.0); Bilirubin, Total 0.6 mg/dL (0.2-1.0); Calcium 9.3 mg/dL (8.5-10.1); Magnesium 2.6 mg/dL (1.6-2.6); Total Protein 7.5 g/dL (6.4-8.2)
[2023-06-23 13:00] VITALS: BP 114/45; RESP 18; TEMP 98.3; O2SAT 96
[2023-06-23 15:20] VITALS: PULSE 80
== END | disposition left against medical advice (07) ==
LOC: ER 11:22
DX: R00.2 Palpitations (principal); I11.0 Hypertensive heart disease with heart failure; I50.9 Heart failure, unspecified; T82.110A Breakdown (mechanical) of cardiac electrode, initial encounter; R77.8 Other specified abnormalities of plasma proteins; G71.00 Muscular dystrophy, unspecified; F41.9 Anxiety disorder, unspecified; Z87.891 Personal history of nicotine dependence; Z95.810 Presence of automatic (implantable) cardiac defibrillator
CPT/HCPCS: 36415; 71045; 80053; 83735; 84484; 85025; 85610; 85730; 93005

== ENCOUNTER 2024-07-18 22:32 | Inpatient (IN) | payer MEDICARE, MEDICAID ==
[~2024-07-18] VITALS: Ht 180.3 cm; Wt 83.7 kg
[~2024-07-18 22:32] MED LIST changes: -ASPirin 81 mg TAB PO ONE; +CEPH500C PO; +DAPA1TAB4 PO; +HYDR-4798 PO; -SODIUM CHLORIDE 0.9% 1,000 ML IV ONE
[2024-07-18 23:00] VITALS: PULSE 76; RESP 13; O2SAT 98
[2024-07-19 00:28] LABS: Basophils # (auto) 0 10 ^3/uL (0-0.2); Basophils % (auto) 0.1 % (0.0-2.0); Eosinophils # (auto) 0.1 10 ^3/uL (0-0.8); Hematocrit 45.2 % (41.0-53.0); Hemoglobin 15.8 g/dL (13.5-17.5); Lymphocytes # (auto) 0.3 10 ^3/uL (0.4-5.4); Lymphocytes % (auto) 3.2 % (10.0-50.0); Mean Corpuscular Hemoglobin 29.7 pg (28.0-32.0); Mean Corpuscular Volume 84.9 fL (80.0-100.0); Monocytes # (auto) 0.3 10 ^3/uL (0-1.3); Monocytes % (auto) 3.3 % (0.0-12.0); Neutrophils # (auto) 7.8 10 ^3/uL (1.6-8.6); Neutrophils % (auto) 92.4 % (37.0-80.0); Nucleated Red Blood Cells % 0.4 %; Platelet Count (auto) 109 10^3/uL (140-450); Red Blood Cells 5.32 10^6/uL (4.5-5.90); Red Cell Distribution Width 13.2 % (11.8-14.3); White Blood Cell 8.5 10^3/uL (4.4-10.8)
[2024-07-19 00:47] LABS: Alanine Aminotransferase 45 U/L (7-40); Albumin 4.6 g/dL (3.2-4.8); Alkaline Phosphatase 86 U/L (46-116); Anion Gap 8 (5-15); Aspartate Aminotransferase 27 U/L (13-40); BUN/Creatinine Ratio 61.3 (10.0-20.0); Blood Urea Nitrogen 19 mg/dL (9-23); Calcium 9.5 mg/dL (8.7-10.4); Carbon Dioxide 21 mmol/L (20-30); Chloride 106 mmol/L (98-107); Glucose 83 mg/dL (74-106); Potassium 3.8 mmol/L (3.5-5.1); Sodium 135 mmol/L (136-145); Total Protein 7.1 g/dL (5.7-8.2)
[2024-07-19 00:49] LABS: Platelet Estimate Decreased
[2024-07-19 01:53] LABS: Urine Bacteria None Seen /hpf (None Seen)
[2024-07-19] MEDS: SODIUM CHLORIDE 0.9% 1,000 ML IV ONE (01:54)
[2024-07-19 02:05] LABS: Urine Blood Negative /uL (Negative); Urine Clarity Clear (Clear); Urine Color Light-Yellow (Yellow); Urine Mucus FEW (None Seen); Urine Protein, UAD TRACE (Negative); Urine Specific Gravity 1.032 (1.001-1.035); Urine Urobilinogen Normal (Negative); Urine WBC 1 /hpf (0 - 3); Urine pH 5.5 (5.0-9.0)
[2024-07-19] MEDS: ASPirin 325 MG TAB PO ONE (02:25)
[2024-07-19] MEDS: IOHEXOL 350 MG/ML 100ML IJ ONE (02:46)
[2024-07-19] MEDS: LORazepam 2MG/ML-1ML VIAL IV ONE (02:49)
[2024-07-19 04:04] VITALS: PULSE 130; RESP 15; O2SAT 96
[2024-07-19] MEDS: METOPROLOL TARTRATE 1MG/1ML-5ML VIAL IV ONE (05:24)
[2024-07-19] MEDS ORDERED: HYDROcodone-ACET 5/325MG TAB PO PRN (06:45)
[2024-07-19] MEDS ORDERED: ONDANSETRON HCL 4 MG/2 ML VIAL IV PRN (06:45)
[2024-07-19] MEDS ORDERED: MORPHINE SULFATE INJ 2 MG/ml SYRG IV PRN (06:45)
[2024-07-19] MEDS ORDERED: NITROGLYCERIN 0.4 MG SL TAB SL PRN (06:45)
[2024-07-19 07:21] LABS: Basophils # (auto) 0 10 ^3/uL (0-0.2); Basophils % (auto) 0.1 % (0.0-2.0); Eosinophils # (auto) 0 10 ^3/uL (0-0.8); Eosinophils % (auto) 0.3 % (0.0-7.0); Hematocrit 41.7 % (41.0-53.0); Hemoglobin 14.7 g/dL (13.5-17.5); Lymphocytes # (auto) 0.2 10 ^3/uL (0.4-5.4); Lymphocytes % (auto) 3.3 % (10.0-50.0); Mean Corpuscular Hemoglobin 29.8 pg (28.0-32.0); Mean Corpuscular Hgb Conc. 35.2 g/dL (32.0-36.0); Mean Corpuscular Volume 84.7 fL (80.0-100.0); Monocytes # (auto) 0.2 10 ^3/uL (0-1.3); Monocytes % (auto) 2.9 % (0.0-12.0); Neutrophils # (auto) 6.5 10 ^3/uL (1.6-8.6); Neutrophils % (auto) 93.4 % (37.0-80.0); Platelet Count (auto) 111 10^3/uL (140-450); Red Blood Cells 4.92 10^6/uL (4.5-5.90); Red Cell Distribution Width 13.1 % (11.8-14.3)
[2024-07-19 07:32] LABS: Alanine Aminotransferase 39 U/L (7-40); Albumin 3.9 g/dL (3.2-4.8); Alkaline Phosphatase 74 U/L (46-116); Anion Gap 11 (5-15); Aspartate Aminotransferase 21 U/L (13-40); BUN/Creatinine Ratio 85.7 (10.0-20.0); Blood Urea Nitrogen 24 mg/dL (9-23); Calcium 8.5 mg/dL (8.7-10.4); Carbon Dioxide 17 mmol/L (20-30); Chloride 106 mmol/L (98-107); Glucose 103 mg/dL (74-106); Potassium 3.4 mmol/L (3.5-5.1); Sodium 134 mmol/L (136-145)
[2024-07-19 07:33] LABS: Bilirubin, Total 0.9 mg/dL (0.2-1.0); Total Protein 5.8 g/dL (5.7-8.2)
[2024-07-19] MEDS: SODIUM CHLORIDE 0.9% 1,000 ML IV SCH ×2 (08:00→16:37)
[2024-07-19 09:14] LABS: Amphetamine Screen, Urine Neg (NEGATIVE); Barbiturate Scree,Urine Neg (NEGATIVE); Benzodiazephine Screen, Urine Neg (NEGATIVE); Cannabinoid Screen, Urine Neg (NEGATIVE); Cocaine Screen, Urine Neg (NEGATIVE); Opiate Scree,Urine Neg (NEGATIVE); Phencyclidine Screen, Urine Neg (NEGATIVE)
[2024-07-19 09:32] LABS: COVID19 ANTIGEN SOFIA FIA NEGATIVE (NEGATIVE); Rapid Influenza A Negative (Negative); Rapid Influenza B Negative (Negative)
[2024-07-19] MEDS: POTASSIUM CHL 20 Meq TABLET PO ONE (09:41)
[2024-07-19] MEDS: CARVEDILOL 12.5 MG TAB PO SCH (10:58)
[2024-07-19] MEDS: SPIRONOLACTONE 25 MG TAB PO SCH (10:58)
[2024-07-19] MEDS: LISINOPRIL 5 MG TAB PO SCH (10:58)
[2024-07-19] MEDS: ASPirin 81 mg TAB PO SCH (10:58)
[2024-07-19] MEDS: CEPHALEXIN 250 MG CAP PO SCH (13:27)
[2024-07-19] MEDS: ACETAMINOPHEN 325 MG TAB PO PRN (18:24)
[2024-07-19 19:45] VITALS: PULSE 87; RESP 13; O2SAT 94
[2024-07-20] VITALS (8 sets, daily range): BP systolic 93–118; BP diastolic 53–69; PULSE 82–105; RESP 14–18; TEMP 98–98.8; O2SAT 96–98
[2024-07-20] MEDS: CARVEDILOL 3.125 MG TAB PO SCH (00:26)
[2024-07-20 07:30] LABS: Alanine Aminotransferase 43 U/L (7-40); Albumin 3.9 g/dL (3.2-4.8); Alkaline Phosphatase 79 U/L (46-116); Anion Gap 12 (5-15); Aspartate Aminotransferase 33 U/L (13-40); BUN/Creatinine Ratio 66.7 (10.0-20.0); Bilirubin, Total 0.9 mg/dL (0.2-1.0); Blood Urea Nitrogen 14 mg/dL (9-23); Calcium 8.7 mg/dL (8.7-10.4); Carbon Dioxide 18 mmol/L (20-30); Chloride 106 mmol/L (98-107); Glucose 78 mg/dL (74-106); Potassium 4.1 mmol/L (3.5-5.1); Sodium 136 mmol/L (136-145)
[2024-07-20 07:50] LABS: Basophils # (auto) 0 10 ^3/uL (0-0.2); Basophils % (auto) 0.1 % (0.0-2.0); Eosinophils # (auto) 0.1 10 ^3/uL (0-0.8); Eosinophils % (auto) 1.6 % (0.0-7.0); Hematocrit 40.2 % (41.0-53.0); Hemoglobin 14.2 g/dL (13.5-17.5); Lymphocytes # (auto) 0.5 10 ^3/uL (0.4-5.4); Lymphocytes % (auto) 12.6 % (10.0-50.0); Mean Corpuscular Hemoglobin 29.9 pg (28.0-32.0); Mean Corpuscular Hgb Conc. 35.2 g/dL (32.0-36.0); Mean Corpuscular Volume 84.9 fL (80.0-100.0); Monocytes # (auto) 0.6 10 ^3/uL (0-1.3); Monocytes % (auto) 14.1 % (0.0-12.0); Neutrophils # (auto) 2.8 10 ^3/uL (1.6-8.6); Neutrophils % (auto) 71.6 % (37.0-80.0); Nucleated Red Blood Cells % 0.4 %; Platelet Count (auto) 102 10^3/uL (140-450); Red Blood Cells 4.73 10^6/uL (4.5-5.90); Red Cell Distribution Width 13.3 % (11.8-14.3)
[2024-07-20] MEDS: DOCUSATE SOD 100 MG CAP PO PRN (11:42)
[2024-07-21 01:00] VITALS: BP 97/69; PULSE 81; RESP 17; TEMP 98.1; O2SAT 97
[2024-07-21 05:11] VITALS: BP 101/65; PULSE 78; RESP 18; TEMP 98.2; O2SAT 98
[2024-07-21 08:00] VITALS: PULSE 82; RESP 17; O2SAT 99
[2024-07-21 08:39] VITALS: BP 104/73; PULSE 82; RESP 17; TEMP 98.4; O2SAT 99
[2024-07-21 12:30] VITALS: BP 112/72; PULSE 82; RESP 15; TEMP 98; O2SAT 98
[2024-07-21] MEDS: CARVEDILOL 3.125 MG TAB PO ONE (13:00)
[2024-07-21] MEDS ORDERED: EMPA1TAB PO (14:40)
[2024-07-22] MEDS ORDERED: EMPAGLIFLOZIN 10 MG TAB PO SCH (10:00)
== END 2024-07-21 14:38 | disposition left against medical advice (07) | DRG 280 ==
LOC: ER 22:32 → EDBD 22:32 → EDUNIT# 22:32 → TELE 07-19 06:41 → TELE-WESTW 07-20 02:52
PROVIDERS: ADMIT Nurse Practitioner Family; ATTEND Family Medicine
DX: I11.0 Hypertensive heart disease with heart failure (principal); I50.23 Acute on chronic systolic (congestive) heart failure; I21.A1 Myocardial infarction type 2; I42.8 Other cardiomyopathies; E86.0 Dehydration; G71.00 Muscular dystrophy, unspecified; I25.10 Atherosclerotic heart disease of native coronary artery without angina pectoris; F41.9 Anxiety disorder, unspecified; Z20.822 Contact with and (suspected) exposure to COVID-19; E78.00 Pure hypercholesterolemia, unspecified; Z53.29 Procedure and treatment not carried out because of patient's decision for other reasons; Z95.810 Presence of automatic (implantable) cardiac defibrillator; Z79.899 Other long term (current) drug therapy; Z88.8 Allergy status to other drugs, medicaments and biological substances; Z82.49 Family history of ischemic heart disease and other diseases of the circulatory system
CPT/HCPCS: 36415; 71045; 71275; 80053; 80307; 81001; 83605; 83880; 84484; 85025; 86141; 87040; 87081; 87086; 87426; 87804; 93005; 93306; G0378

== ENCOUNTER 2025-04-04 14:50 | Emergency (ER) | payer MEDICARE, MEDICAID ==
[~2025-04-04 14:50] MED LIST changes: -DAPA1TAB4 PO; +EMPA1TAB PO
--- NOTE | 2025-04-04 17:37 | ED.PDOC ---
General HPI Comments 59M presents to the ER w/ no prior Hx associated to the c/c of Testicular pain. Pt reports on having right testicular pain feeling as if "someone hit me there" which started earlier today. Denies chills, fever, N/V/D, SOB, CP. Denies any other associated symptom's, modifiers, or recent injuries or sick contact at this time. Chief Complaint: Testicle Pain Time Seen by MD: 17:15 Primary Care Provider: VAISHNAVI Reviewed notes: Nurses Notes, Medications, Allergies Allergies: Coded Allergies: Enoxaparin (Verified Allergy, Unknown, 07/18/24) Home Meds Active Scripts Empagliflozin (Jardiance) 10 Mg Tab, 10 MG PO DAILY, #90 TAB Prov:TA BEAR MD 07/21/24 Metoprolol Succinate (Metoprolol Succinate Er) 25 Mg Tab, 50 TAB PO DAILY, #30 TAB 5 Refills Prov:SHANAE WALLACE MD 12/05/22 Reported Medications Hydrocodone-Acetaminophen (Hydrocodone Bitartrate/AC 10-325 mg) 1 Tab Tab, 1 TAB PO TID for 30 Days 07/21/24 Cephalexin Monohydrate (Cephalexin) 500 Mg Cap, 1 CAP PO QID for 5 Days, #20 07/21/24 Lisinopril (Lisinopril) 5 Mg Tab, 1 TAB PO DAILY 08/18/21 Fenofibrate (FENOFIBRATE) 145 Mg Tab, 1 TAB PO DAILY, #30 TAB 5 Refills 05/29/17 Cholecalciferol (VITAMIN D) 2,000 Unit Tab, 3000 UNIT PO DAILY, TAB 05/29/17 Spironolactone (Spironolactone) 25 Mg Tab, 1 TAB PO AM, #90 TAB 1 Refill 05/29/17 Folic Acid (Folic Acid) 1 Mg Tab, 1 MG PO DAILY, TAB 12/05/15 Carvedilol (Carvedilol) 6.25 Mg Tab, 6.25 MG PO BID, TAB 12/05/15 Information Source: Patient Mode of Arrival: Ambulatory Severity: Moderate Timing: Hours Duration: Since onset, Hours Prehospital treatment: None Onset: Spontaneous Symptoms: None History of: None Location male: R Scrotum Penile discharge: None associated signs and symptoms: None Past Medical History PAST MEDICAL HISTORY: Denies Surgical History: Denies all surgeries Family History Family History: Reviewed,noncontributory to illness, Unknown Social History Smoker: Non-Smoker, Quit Greater Than 1 Year Alcohol: Denies ETOH Use Drugs: Denies Drug Use Lives In: Home Constitutional: denies: chills, diaphoresis, fatigue, fever, malaise, sweats, weakness, others EENTM: denies: blurred vision, double vision, ear bleeding, ear discharge, ear drainage, ear pain, ear ringing, eye pain, eye redness, hearing loss, mouth pain, mouth swelling, nasal discharge, nose bleeding, nose congestion, nose pain, photophobia, tearing, throat pain, throat swelling, voice changes, others Respiratory: denies: cough, hemoptysis, orthopnea, SOB at rest, shortness of breath, SOB with excertion, stridor, wheezing, others Cardiovascular: denies: chest pain, dizzy spells, diaphoresis, Dyspnea on exertion, edema, irregular heart beat, left arm pain, lightheadedness, palpitations, PND, syncope, others Gastrointestinal: denies: abdomen distended, abdominal pain, blood streaked bowels, constipated, diarrhea, dysphagia, difficulty swallowing, hematemesis, melena, nausea, poor appetite, poor fluid intake, rectal bleeding, rectal pain, vomiting, others Genitourinary: reports: testicle pain; denies: burning, dysuria, flank pain, frequency, hematuria, incontinence, penile discharge, penile sore, pain, testicle swelling, urgency, others Neurological: denies: dizziness, fainting, headache, left sided numbness, left sided weakness, numbness, paresthesia, pre-existing deficit, right sided numbness, right sided weakness, seizure, speech problems, tingling, tremors, weakness, others Musculoskeletal: denies: back pain, gout, joint pain, joint swelling, muscle pain, muscle stiffness, neck pain, others Integumetry: denies: bruises, change in color, change in hair/nails, dryness, laceration, lesions, lumps, rash, wounds, others Allergic/Immunocompromised: denies: Difficulty Healing, Frequent Infections, Hives, Itching, others Hematologic/Lymphatic: denies: anemia, blood clots, easy bleeding, easy bruising, swollen glands, others Endocrine: denies: excessive hunger, excessive sweating, excessive thirst, excessive urination, flushing, intolerance to cold, intolerance to heat, unexplained weight gain, unexplained weight loss, others Psychiatric: denies: anxiety, bipolar disorder, depression, hopeless, panic disorder, schizophrenia, sleepless, suicidal, others All Other Systems: Reviewed and Negative Physical Exam General Appearance: No Apparent Distress, Normal HEENT: Normal ENT Inspection, PERRL/EOMI, Pharynx Normal, TMs Normal Neck: Full Range of Motion, Non-Tender, Normal, Normal Inspection Respiratory: Chest Non-Tender, Lungs Clear, No Accessory Muscle Use, No Respiratory Distress, Normal Breath Sounds Cardiovascular: No Edema, No JVD, No Murmur, No Gallop, Normal Peripheral Pulses, Regular Rate/Rhythm Breast Exam: Deferred Gastrointestinal: No Organomegaly, Non Tender, No Pulsatile Mass, Normal Bowel Sounds, Soft Genitalia: Epididymis, Scrotum, Testicle, Other (The right testicle is enlarged mildly tender no obvious infection at this time) Pelvic: Deferred Rectal: Deferred Extremities: No calf tenderness, Normal capillary refill, Normal inspection, Normal range of motion, Non-tender, No pedal edema Musculoskeletal : Apperance: Normal Neurologic: Alert, fnps II-XII nml as Tested, No Motor Deficits, Normal Affect, Normal Mood, No Sensory Deficits Cerebellar Function: Normal Reflexes: Normal Skin: Dry, Normal Color, Warm Peripheral Pulses: 1+ carotid (R), 1+ carotid (L) Lymphatic: No Adenopathy Was a procedure done? Was a procedure done?: No Differential Diagnosis Kidney stone (Female): N/A Kidney stone (Male): Pyelonephritis, Urinary tract infection Penile/Scrotal: Epidiymitis, UTI, Hydrocele, Urolithiasis, Other (Epididymo- orchitis) Urinary Problem (Male): Epididymitis, Urolithiasis, UTI Urinary Problem (Female): N/A X-Ray, Labs, Meds, VS Vital Signs Date Time Temp Pulse Resp B/P (MAP) Pulse Ox O2 Delivery O2 Flow Rate FiO2 04/04/25 15:30 98.9 95 16 111/83 (92) 95 98.9 X-Ray, Labs, Meds, VS Comment Course in the emergency department patient came in complaining of right testicle pain and swelling The ultrasound showed that patient has irregular mass corresponding probably to orchitis Patient will need to follow up with the urologist to make sure there is no underlying issue Time of 1ST Reevaluation: 17:45 Reevaluation 1ST: Unchanged Time of 2ND Reevaluation: 18:32 Reevaluation 2ND: Improved Consultation: PCP, Urology Patient Education/Counseling: Diagnosis, Treatment, Prognosis, Need For Follow Up Family Education/Counseling: Diagnosis, Treatment, Prognosis, Need For Follow U p, No Family Present Departure 1 Departure Time of Disposition: 18:35 Impression: Primary Impression: Epididymo-orchitis without abscess Additional Impression: Muscular dystrophy Disposition: HOME / SELF CARE / HOMELESS Condition: Fair Additional Instructions: Local heat and follow up with the urologist e-Prescriptions Cefdinir (Cefdinir) 300 Mg Cap 300 MG PO BID for 10 Days, #20 CAP Prov: ABDI GROVER MD 04/04/25 Discharged With: Self Critical Care Note Critical Care Time?: No Stability Stability form required: No Heart Score Heart Score: Heart Score Response (Comments) Value History N/A 0 EKG N/A 0 Age 45-64 1 Risk Factors 1 or 2 risk factors 1 Troponin N/A 0 Total 2 I personally scribed for ABDI GROVER MD ([email or web address]) on 04/04/25 at 17:36. Electronically submitted by Raj Wagner ([email or web address]). ABDI GROVER MD April 04, 2025 17:36
--- NOTE | 2025-04-04 18:14 | DVH ---
ULTRASOUND OF SCROTUM AND CONTENTS. INDICATION: Swollen testicle COMPARISON: None TECHNIQUE: Multiple real-time grayscale sonographic and color and duplex Doppler images of the scrotu m and its contents were obtained. FINDINGS: The right testicle measures 4.8 x 3.0 x 3.9 cm. The left testicle measures 3.6 x 2.3 x 2.7 cm. Right testicle appears enlarged and heterogeneous. The right epididymis measures 1.9 cm. The left epididymis measures 1.4 cm. Left varicocele is present. Subsequent color and duplex Doppler interrogation of the testes demonstrated symmetric normal vascula r flow to both testicles. Increased vascularity to the right testicle. IMPRESSION: Severely edematous and heterogeneous appearance to the right testicle with increased vascularity. Fi ndings may represent acute severe right orchitis. Clinical correlation advised. Recommend repeat bobby ging after treatment to ensure complete resolution and exclude underlying possible neoplasm.
[2025-04-04] MEDS ORDERED: CEFD300C2 PO (18:36)
[2025-04-04] MEDS ORDERED: cefTRIAXone 1GM/50ML D5W 50 ML IV ONE (18:45)
[2025-04-04 19:00] VITALS: BP 111/83; PULSE 95; RESP 16; TEMP 98.9; O2SAT 95
[2025-04-04] MEDS ORDERED: cefTRIAXone W LIDOCAINE 1 GM IM IM ONE (19:00)
[2025-04-04] MEDS: cefTRIAXone SOD 1,000 MG VL IM ONE (19:07)
== END 2025-04-04 19:22 | disposition home or self-care (01) ==
LOC: ER 14:59
DX: N45.3 Epididymo-orchitis (principal); G71.00 Muscular dystrophy, unspecified; Z79.84 Long term (current) use of oral hypoglycemic drugs; Z79.899 Other long term (current) drug therapy
CPT/HCPCS: 76870; 96372; 99285; J0696

== ENCOUNTER 2025-05-27 15:32 | Inpatient (IN) | payer OTHER, MEDICARE, MEDICAID ==
[~2025-05-27] VITALS: Ht 180.3 cm; Wt 81.3 kg
[~2025-05-27 15:32] MED LIST changes: +CEFD300C2 PO
--- NOTE | 2025-05-27 17:09 | ED.PDOC ---
History of Present Illness HPI Comments Patient is a 59-year-old male with a past medical history of muscular dystrophy diagnosed in 2017, heart failure with reduced ejection fraction s/p AICD, multiple coronary angiographies presented to the ED with a chief complaint of generalized weakness. Patient reports that in early April he had episode of regina ticular infection following which she took 3 weeks of antibiotics including Bactrim and doxycycline. He was doing well until 3-4 days ago when he started to feel pain in his right testicle. He also reported of having palpitations intermittently, episodes of dizziness also with the patient is not able to walk and is wheelchair-bound because of the muscular dystrophy. He reports the last ejection fraction was 40-45% in last July and is currently on guideline directed medical therapy with lisinopril, carvedilol, spironolactone, Jardiance. Chief Complaint: Dizziness Time Seen by MD: 16:16 Primary Care Provider: VAISHNAVI Allergies: Coded Allergies: Enoxaparin (Verified Allergy, Unknown, 07/18/24) Home Meds Active Scripts Cefdinir (Cefdinir) 300 Mg Cap, 300 MG PO BID for 10 Days, #20 CAP Prov:ABDI GROVER MD 04/04/25 Empagliflozin (Jardiance) 10 Mg Tab, 10 MG PO DAILY, #90 TAB Prov:TA BEAR MD 07/21/24 Metoprolol Succinate (Metoprolol Succinate Er) 25 Mg Tab, 50 TAB PO DAILY, #30 TAB 5 Refills Prov:SHANAE WALLACE MD 12/05/22 Reported Medications Hydrocodone-Acetaminophen (Hydrocodone Bitartrate/AC 10-325 mg) 1 Tab Tab, 1 TAB PO TID for 30 Days 07/21/24 Cephalexin Monohydrate (Cephalexin) 500 Mg Cap, 1 CAP PO QID for 5 Days, #20 07/21/24 Lisinopril (Lisinopril) 5 Mg Tab, 1 TAB PO DAILY 08/18/21 Fenofibrate (FENOFIBRATE) 145 Mg Tab, 1 TAB PO DAILY, #30 TAB 5 Refills 05/29/17 Cholecalciferol (VITAMIN D) 2,000 Unit Tab, 3000 UNIT PO DAILY, TAB 05/29/17 Spironolactone (Spironolactone) 25 Mg Tab, 1 TAB PO AM, #90 TAB 1 Refill 05/29/17 Folic Acid (Folic Acid) 1 Mg Tab, 1 MG PO DAILY, TAB 12/05/15 Carvedilol (Carvedilol) 6.25 Mg Tab, 6.25 MG PO BID, TAB 12/05/15 Mode of Arrival: Wheelchair Past Medical History PAST MEDICAL HISTORY: CHF (Heart failure with reduced ejection fraction) Past Medical History (Other): Muscular dystrophy Surgical History: Denies all surgeries Surgical History (Other): Coronary angiography Family History Family History: Reviewed,noncontributory to illness, Unknown Social History Smoker: Non-Smoker, Quit Greater Than 1 Year Alcohol: Denies ETOH Use Drugs: Denies Drug Use Lives In: Home Constitutional: reports: fatigue EENTM: denies: blurred vision, double vision, ear bleeding, ear discharge, ear drainage, ear pain, ear ringing, eye pain, eye redness, hearing loss, mouth pain, mouth swelling, nasal discharge, nose bleeding, nose congestion, nose pain, photophobia, tearing, throat pain, throat swelling, voice changes, others Respiratory: denies: cough, hemoptysis, orthopnea, SOB at rest, shortness of breath, SOB with excertion, stridor, wheezing, others Cardiovascular: denies: chest pain, dizzy spells, diaphoresis, Dyspnea on exertion, edema, irregular heart beat, left arm pain, lightheadedness, palpitati ons, PND, syncope, others Gastrointestinal: denies: abdomen distended, abdominal pain, blood streaked bowels, constipated, diarrhea, dysphagia, difficulty swallowing, hematemesis, melena, nausea, poor appetite, poor fluid intake, rectal bleeding, rectal pain, vomiting, others Genitourinary: reports: testicle pain, testicle swelling Neurological: reports: dizziness Musculoskeletal: denies: back pain, gout, joint pain, joint swelling, muscle pain, muscle stiffness, neck pain, others Integumetry: denies: bruises, change in color, change in hair/nails, dryness, laceration, lesions, lumps, rash, wounds, others Allergic/Immunocompromised: denies: Difficulty Healing, Frequent Infections, Hives, Itching, others Hematologic/Lymphatic: denies: anemia, blood clots, easy bleeding, easy bruising, swollen glands, others Endocrine: denies: excessive hunger, excessive sweating, excessive thirst, excessive urination, flushing, intolerance to cold, intolerance to heat, unexplained weight gain, unexplained weight loss, others Psychiatric: denies: anxiety, bipolar disorder, depression, hopeless, panic disorder, schizophrenia, sleepless, suicidal, others Physical Exam General Appearance: Normal HEENT: PERRL/EOMI, Pharynx Normal Neck: Full Range of Motion, Non-Tender, Normal Inspection Respiratory: Lungs Clear, No Accessory Muscle Use, No Respiratory Distress, Normal Breath Sounds Cardiovascular: No Edema, No JVD, No Murmur, Regular Rate/Rhythm Breast Exam: Deferred Gastrointestinal: No Organomegaly, Non Tender, Normal Bowel Sounds Genitalia: Deferred Pelvic: Deferred Rectal: Deferred Extremities: Normal inspection, Non-tender, No pedal edema Neurologic: Abnormal Gait (Patient is a wheelchair-bound and not able to walk), Alert, Motor Weakness (Bilateral lower extremity motor weakness), No Sensory Def icits Cerebellar Function: NOT DONE Reflexes: NOT DONE Skin: Dry, Normal Color, Warm Peripheral Pulses: 2+ dorsalis pedis (R), 2+ dorsalis pedis (L), 2+ Radial (R), 2+ Radial (L) Lymphatic: NOT DONE Was a procedure done? Was a procedure done?: No EKG EKG : Pulse Rate (adult): 86 [place]: Normal Cardiac Rhythm: NSR Block: RBBB Hypertrophy: None ST: Lat (T-wave inversions in V5 V6) Differential Dx Considerations may include: Epididymitis, orchitis, testicular mass, sepsis likely due to above X-Ray, Labs, Meds, VS Vital Signs Date Time Temp Pulse Resp B/P (MAP) Pulse Ox O2 Delivery O2 Flow Rate FiO2 05/27/25 17:52 98.3 75 17 97/71 (80) 97 98.3 05/27/25 17:09 86 05/27/25 16:01 98.9 95 17 118/84 (95) 97 98.9 Lab Test 05/27/25 18:05 Range/Units White Blood Count Pending Red Blood Count Pending Hemoglobin Pending Hematocrit Pending Mean Corpuscular Volume Pending Mean Corpuscular Hemoglobin Pending Mean Corpuscular Hemoglobin Concent Pending Red Cell Distribution Width Pending Platelet Count Pending Mean Platelet Volume Pending Neutrophils (%) (Auto) Pending Lymphocytes (%) (Auto) Pending Monocytes (%) (Auto) Pending Basophils (%) (Auto) Pending Neutrophils # (Auto) Pending Lymphocytes # (Auto) Pending Monocytes # (Auto) Pending Sodium Level Pending Potassium Level Pending Chloride Level Pending Carbon Dioxide Level Pending Anion Gap Pending Blood Urea Nitrogen Pending Creatinine Pending Glomerular Filtration Rate Calc Pending BUN/Creatinine Ratio Pending Serum Glucose Pending Lactic Acid Level Pending Calcium Level Pending B-Type Natriuretic Peptide Pending Patient 59-year-old male with a history of heart failure with reduced ejection fraction, muscular dystrophy presented to the ED with generalized weakness, dizziness, testicular pain for the last week. On examination right testicle was erythematous, indurated, swollen with moderate tenderness on palpation. Testicular ultrasound shows rComplex appearing lesion/ mass within the right testicle measuring 5.6 x 5.1 cm that is demonstrating internal vascularity, highly concerning for right testicular mass / neoplasm. CT abd/pelvis was ordered with contrast. Patient will need further inpatient management and urology will be consulted. Patient agrees to the plan of management. Time of 1ST Reevaluation: 17:38 Reevaluation 1ST: Unchanged Patient Education/Counseling: Diagnosis, Treatment Family Education/Counseling: No Family Present SEPSIS Sepsis Screen Date sepsis recognized/suspect: May 27, 2025 Time Sepsis recognized/suspect: 160 Recent Procedure: No On Antibiotic Therapy: No Respiratory Rate >20: No Heart Rate >90: Yes Temp<36 C (96.8 F) or >38.3 C: No SBP <90 or MAP <65 mmHG: No New Acute Mental Status Change: No Is the patient on CPAP, BIPAP,: No Physician Orders Complete Blood Count (05/27/25 16:35) B-Type Natriuretic Peptide (05/27/25 16:35) Chest Portable (05/27/25 16:35) Urinalysis (05/27/25 16:35) Basic Metabolic Panel (05/27/25 16:35) Heplock Iv (05/27/25 16:35) Blood Culture (05/27/25 16:35) Lactic Acid W/ Reflex Order (05/27/25 16:35) Testicular Ultrasound (05/27/25 16:35) Vital Signs Date Time Temp Pulse Resp B/P (MAP) Pulse Ox O2 Delivery O2 Flow Rate FiO2 05/27/25 17:52 98.3 75 17 97/71 (80) 97 98.3 05/27/25 17:09 86 05/27/25 16:01 98.9 95 17 118/84 (95) 97 98.9 Laboratory Tests Test 05/27/25 18:05 Lactic Acid Level Pending White Blood Count Pending Departure 1 Departure Time of Disposition: 18:20 Impression: Primary Impression: Mass of right testicle Additional Impression: Generalized weakness Disposition: ADMITTED INPATIENT Condition: Stable Critical Care Note Critical Care Time?: No Stability Stability form required: No Heart Score Heart Score: Heart Score Response (Comments) Value History N/A 0 EKG N/A 0 Age N/A 0 Risk Factors N/A 0 Troponin N/A 0 Total 0 DIANE HOFF RESIDENT May 27, 2025 17:09
--- NOTE | 2025-05-27 17:13 | DVH ---
CHEST RADIOGRAPH Indication: SOB Technique: Single frontal view of the chest was obtained Comparison: XY CHEST PORTABLE on DOS: 07/19/24, XY CHEST PORTABLE on DOS: 06/23/23, XY CHEST PORTABLE o n DOS: 02/10/23 FINDINGS: Lines and Tubes: None. Left-sided approach biventricular lead AICD with intact leads. Lungs: No focal consolidation. Pleura: No effusion. No pneumothorax. Cardiomediastinal contours: Unremarkable Bones: No acute osseous abnormality. IMPRESSION: No acute cardiopulmonary disease.
--- NOTE | 2025-05-27 18:08 | DVH ---
Indication: right testicle swelling, induration Technique: Real-time ultrasound images through the scrotum. Comparison: US TESTICULAR ULTRASOUND on DOS: 04/04/25 Findings: Right testicle measures 5.6 x 4.2 x 3.5 cm. Heterogeneous appearing lesion within the right testicle that is overall hypoechoic measuring 5.6 x 5.1 cm demonstrating internal vascularity. This appears to be extending through the posterior aspect of the testicle into the scrotal wall. Some calcificati ons within lesion. There is moderate right hydrocele. Left testicle measures 3.2 x 1.7 x 3.8 cm. It has normal echogenicity and echotexture, with no focal solid or cystic mass. There is normal flow on color Doppler, with normal waveforms. The left epididy mal head measures 10 cm,. Left scrotal james/ scrotolith measuring 3 mm. Left epididymal cyst measu ring 6 mm.m left varicocele that measures 3 mm in diameter. Impression: Complex appearing lesion/ mass within the right testicle measuring 5.6 x 5.1 cm that is demonstrating internal vascularity, highly concerning for right testicular mass / neoplasm. Recommend urology con sultation for further evaluation. Moderate right hydrocele. Left scrotal james measuring 3 mm. Left varicocele. Critical Result: Possible right testicular mass/neoplasm versus other complex lesion Findings discussed with Dr. Trujillo , at 05/27/2025 08:07 PM, and acknowledged receipt and understandin g of the findings. ..
[2025-05-27 18:23] LABS: Hematocrit 45.2 % (41.0-53.0); Hemoglobin 15.7 g/dL (13.5-17.5); Mean Corpuscular Hemoglobin 29.1 pg (28.0-32.0); Mean Corpuscular Volume 83.7 fL (80.0-100.0); Nucleated Red Blood Cells % 0.4 %
[2025-05-27 18:32] LABS: Chloride 105 mmol/L (98-107); Potassium 4.3 mmol/L (3.5-5.1); Sodium 138 mmol/L (136-145)
[2025-05-27 18:33] LABS: Anion Gap 9 (5-15); Calcium 9.7 mg/dL (8.7-10.4); Carbon Dioxide 24 mmol/L (20-31)
[2025-05-27 18:38] LABS: BUN/Creatinine Ratio 42.9 (10.0-20.0); Blood Urea Nitrogen 12 mg/dL (9-23); Glucose 96 mg/dL (74-106)
--- NOTE | 2025-05-27 21:14 | DVHHP2 ---
History of Present Illness History of Present Illness Patient is 59 years old male with past medical history of HFmrEF, ischemic cardiomyopathy, status post AICD, hypertension, muscular dystrophy since 2017 came with a complaint of scrotal pain and swelling. As per patient he has been having scrotal swelling started in March for which he was treated by his primary care physician with antibiotic 3 times with some improvement but lately his scrotum has been swollen for 3-4 days without any improvement. Patient also endorsed feeling tired and fatigued all the time. On further inquiry patient also reported having intermittent palpitation, feeling short of breath on exertion and episode of dizziness. Patient is wheelchair-bound due to muscular dystrophy. Patient denied any acute chest pain, diarrhea, dysuria, nausea or vomiting. Initial lab workup revealed troponin I -64> 56, LDH 429, Beta hCG 1.2, TSH 1.3. Testicular ultrasound revealed- Complex appearing lesion/ mass within the right testicle measuring 5.6 x 5.1 cm that is demonstrating internal vascularity, highly concerning for right testicular mass / neoplasm.Moderate right hydrocele. Left scrotal james measuring [address] abdomen and pelvis revealed-Moderate right hydrocele with 4.8 x 3.4 x 5.4 cm heterogeneous lesion within the right scrotal sac concerning for mass. Sigmoid diverticulosis without diverticulitis. 1.5 cm left renal hypodense lesion which does not measure as simple fluid. Subcentimeter hypodense hepatic lesions are noted that are too small to characterize. Past Medical History HFmrEF, ischemic cardiomyopathy, status post AICD, hypertension, muscular dystrophy since 2017 Review of Systems Review of Systems Allergy- enoxaparin Cardiovascular- deny acute chest pain or cough or palpitation Respiratory denies cough or wheezing Gastrointestinal- denies any rectal bleeding, nausea or vomiting Musculoskeletal-denies acute joint swelling or tenderness or redness Neurological- denies acute dysarthria, dysphagia, change in vision Psychiatry- denies depression or SI or HI Skin- denies acute rash or purpura Allergies: Coded Allergies: Enoxaparin (Verified Allergy, Unknown, 07/18/24) Exam Vital Signs Vital Signs Date Time Temp Pulse Resp B/P (MAP) Pulse Ox O2 Delivery O2 Flow Rate FiO2 05/27/25 21:02 98.4 75 16 100/71 (81) 97 98.4 Exam General examination-awake , alert, oriented HEENT- PEERLA, no acute nasal discharge Cardiovascular- S1-S2 audible, rate and rhythm regular, no murmur Respiratory- CTAB, no wheeze or rhonchi Gastrointestinal-nontender, bowel sound+. Nondistended Genitourinary-scrotal swelling++, right testicular mass firm in consistency Musculoskeletal-no acute joint swelling or tenderness or redness Lower extremity- no leg edema Neurological- muscle weakness bilateral upper and lower extremity, upper extremity bilateral2/5, lower extremity bilateral 1/5 Psychiatry- denies depression or SI or HI Skin- no acute rash or purpura Labs/Xrays Labs Test 05/27/25 18:05 Range/Units White Blood Count 5.6 4.4-10.8 10^3/uL Red Blood Count 5.40 4.5-5.90 10^6/uL Hemoglobin 15.7 13.5-17.5 g/dL Hematocrit 45.2 41.0-53.0 % Mean Corpuscular Volume 83.7 80.0-100.0 fL Mean Corpuscular Hemoglobin 29.1 28.0-32.0 pg Mean Corpuscular Hemoglobin Concent 34.8 32.0-36.0 g/dL Red Cell Distribution Width 13.5 11.8-14.3 % Platelet Count 157 140-450 10^3/uL Mean Platelet Volume 8.5 6.9-10.8 fL Neutrophils (%) (Auto) 69.0 37.0-80.0 % Lymphocytes (%) (Auto) 20.2 10.0-50.0 % Monocytes (%) (Auto) 9.2 0.0-12.0 % Eosinophils (%) (Auto) 1.5 0.0-7.0 % Basophils (%) (Auto) 0.1 0.0-2.0 % Neutrophils # (Auto) 3.9 1.6-8.6 10 ^3/uL Lymphocytes # (Auto) 1.1 0.4-5.4 10 ^3/uL Monocytes # (Auto) 0.5 0-1.3 10 ^3/uL Eosinophils # (Auto) 0.1 0-0.8 10 ^3/uL Basophils # (Auto) 0 0-0.2 10 ^3/uL Nucleated Red Blood Cells 0.4 % Sodium Level 138 136-145 mmol/L Potassium Level 4.3 3.5-5.1 mmol/L Chloride Level 105 98-107 mmol/L Carbon Dioxide Level 24 20-31 mmol/L Anion Gap 9 5-15 Blood Urea Nitrogen 12 9-23 mg/dL Creatinine 0.28 L 0.700-1.30 mg/dL Glomerular Filtration Rate Calc 141 >90 mL/min BUN/Creatinine Ratio 42.9 H 10.0-20.0 Serum Glucose 96 74-106 mg/dL Lactic Acid Level 0.9 0.4-2.0 mmol/L Calcium Level 9.7 8.7-10.4 mg/dL B-Type Natriuretic Peptide 35.49 0-100 pg/mL SEPSIS Sepsis Screen Date sepsis recognized/suspect: May 27, 2025 Time Sepsis recognized/suspect: 1600 Recent Procedure: No On Antibiotic Therapy: No Respiratory Rate >20: No Heart Rate >90: Yes Temp<36 C (96.8 F) or >38.3 C: No SBP <90 or MAP <65 mmHG: No New Acute Mental Status Change: No Is the patient on CPAP, BIPAP,: No Physician Orders Chest Portable (05/27/25 16:35) Urinalysis (05/27/25 16:35) Heplock Iv (05/27/25 16:35) Blood Culture (05/27/25 16:35) Testicular Ultrasound (05/27/25 16:35) Ct Ab Pel With Iv Con Only (05/27/25 18:16) * Urology Consult (05/27/25 18:33) Vital Signs Date Time Temp Pulse Resp B/P (MAP) Pulse Ox O2 Delivery O2 Flow Rate FiO2 05/27/25 21:02 98.4 75 16 100/71 (81) 97 98.4 05/27/25 17:52 98.3 75 17 97/71 (80) 97 98.3 05/27/25 17:09 86 05/27/25 16:01 98.9 95 17 118/84 (95) 97 98.9 Laboratory Tests Test 05/27/25 18:05 Lactic Acid Level 0.9 mmol/L (0.4-2.0) White Blood Count 5.6 10^3/uL (4.4-10.8) Assessment/Plan Assessment/Plan Assessment and plan # Right Scrotal swelling likely scrotal mass/neoplasm, rule out orchitis/spermatocele/hydrocele # Right scrotal hydrocele # Left renal hypodense lesion ?Cystic #Left varicocele. # hypodense hepatic lesion # left inguinal hernia -Testicular ultrasound revealed- Complex appearing lesion/ mass within the right testicle measuring 5.6 x 5.1 cm that is demonstrating internal vascularity, highly concerning for right testicular mass / neoplasm.Moderate right hydrocele. -Left scrotal james measuring 3 mm. Left varicocele. -CT abdomen and pelvis revealed-Moderate right hydrocele with 4.8 x 3.4 x 5.4 cm heterogeneous lesion within the right scrotal sac concerning for mass. -Sigmoid diverticulosis without diverticulitis. -1.5 cm left renal hypodense lesion which does not measure as simple fluid. -Subcentimeter hypodense hepat ic lesions are noted that are too small to characterize. -pending urology consult for further evaluation and care -beta hCG 1.2 -Lactate dehydrogenase 429 -pending alpha-fetoprotein -Ultrasound of the kidney- Simple 1.5 cm cyst at the superior pole of the left kidney -continue current conservative care # Non STEMI likely type 2 likely due to demand lead ischemia -troponin I 64> 56>69 -continue current conservative management # Ischemic cardiomyopathy, status post AICD #HFmrEF # Hypertension -BNP WNL -continue Jardiance 10 mg p.o. daily -continue lisinopril 5 mg p.o. daily -continue carvedilol 6.25 mg p.o. b.i.d. -continue spironolactone 25 mg p.o. daily -monitor blood pressure -Pending echo 2D #Diverticulosis with the diverticulitis -avoid dehydration and constipation #Muscular dystrophy -continue current conservative management -follow up Neurology outpatient Diet-cardiac diet Goals of care, Code status full code ; discussed with >15 minutes PUD prophylaxis: Pantoprazole DVT prophylaxis: Heparin Plan discussed with Dr. Todd , nursing staff, Total time spent on patient evaluation, chart review, assessment and plan, discussion discussion >35 minutes Plan discussed with: Patient, Other (RN) Date of Service: May 27, 2025 Billing Provider: EUGENIE TODD MD Common Visit Codes: 12962-MCXUMDS INP/OBS CARE (HIGH) Secondary Visit Codes: 63232-MKRWSNPR CARE PLAN 30 MINUTES ISABEL VERMA RESIDENT May 27, 2025 21:13
--- NOTE | 2025-05-27 21:50 | DVH ---
Exam: CT CT AB PEL WITH IV CON ONLY History: right testicular complex lesion on US Comparison Study: Ultrasound testicular sonogram 05/27/2025 TECHNIQUE: Multidetector CT of the abdomen and pelvis with IV contrast. Axial, coronal and sagittal m ultiplanar reformats were obtained from the axial data set by the technologist. Radiation Dose Information: CT Dose: CTDI volume is 19.41 mGy. Dose-length product is 1273.69 mGy*cm FINDINGS: Bibasilar atelectasis. Partially visualized heart is unremarkable. Subcentimeter hypodense hepatic lesions that are too small to characterize. Otherwise, liver, spleen , gallbladder, pancreas and adrenal glands are unremarkable. 1.5 cm left renal hypodense lesion measuring up to 30 Hounsfield units. Otherwise, kidneys, ureters a nd decompressed urinary bladder unremarkable. Prostate measures 2.5 by 4.2 by 3.5 cm with Foci of keo cification. Stomach is unremarkable. Small bowel loops unremarkable. Appendix is unremarkable. Small to moderate amount of fecal material within the colon. Sigmoid diverticulosis without diverticulitis. No evidence of intraperitoneal free air or free fluid. No evidence of aortic aneurysm or dissection. [id number] atherosclerotic calcification of the a magnus and bilateral iliacs. No significant lymphadenopathy. Moderate fat containing left inguinal hernia. Moderate right hydrocele with heterogeneous 4.8 x 3.4 5 .4 cm lesion within the right scrotal sac concerning for mass. Tortuosity of the right pampiniform pl exus. Severe atrophy of lower extremity pelvic and paraspinal muscles. No destructive osseous lesions are noted. IMPRESSION: Moderate right hydrocele with 4.8 x 3.4 x 5.4 cm heterogeneous lesion within the right scrotal sac co ncerning for mass. Sigmoid diverticulosis without diverticulitis. 1.5 cm left renal hypodense lesion which does not measure as simple fluid. Ultrasound is recommended for further evaluation. Subcentimeter hypodense hepatic lesions are noted that are too small to characterize.
[2025-05-27 22:07] VITALS: PULSE 82; RESP 19; O2SAT 96
[2025-05-27 22:11] LABS: Magnesium 2.2 mg/dL (1.6-2.6)
[2025-05-27 22:22] LABS: Beta HCG, Quantitative 1.2 mIU/mL (0-2)
[2025-05-27] MEDS: CARVEDILOL 3.125 MG TAB PO SCH (23:23)
[2025-05-27 23:24] VITALS: BP 139/90; PULSE 82; RESP 19; TEMP 97.6; O2SAT 96
[2025-05-28] VITALS (8 sets, daily range): BP systolic 103–125; BP diastolic 64–85; PULSE 60–94; RESP 17–20; TEMP 97.3–98.3; O2SAT 94–100
[2025-05-28 00:11] LABS: Urine Protein, UAD TRACE (Negative)
[2025-05-28 00:19] LABS: Amphetamine Screen, Urine Neg (NEGATIVE); Barbiturate Scree,Urine Neg (NEGATIVE); Benzodiazephine Screen, Urine Neg (NEGATIVE); Cocaine Screen, Urine Neg (NEGATIVE); Opiate Scree,Urine Neg (NEGATIVE); Phencyclidine Screen, Urine Neg (NEGATIVE)
[2025-05-28 00:20] LABS: Cannabinoid Screen, Urine Neg (NEGATIVE)
--- NOTE | 2025-05-28 01:16 | DVH ---
RENAL ULTRASOUND REASON FOR EXAM: RULE OUT RENAL TUMOR/METASTASIS. Hypodense lesion seen in the left kidney on recent CT. COMPARISON: CT abdomen/ pelvis 05/27/2025. TECHNIQUE: Real-time sector scans in multiple planes were obtained over the kidneys, ureters and vashti dder. FINDINGS: The right kidney measures 9.0 cm. The left kidney measures 12.3 cm. There is a 1.5 x 1.3 x 1.4 cm anechoic structure within the superior pole of the left kidney demonstrating posterior acous tic enhancement consistent with a simple cyst. No solid mass is identified. There is no hydronephrosi s. The urinary bladder is decompressed and is not well evaluated. The patient voided immediately kushal or to the exam. IMPRESSION: Simple 1.5 cm cyst at the superior pole of the left kidney corresponding to the lesion in question on the recent CT. No dedicated follow-up for this simple cyst is recommended.
[2025-05-28] MEDS: SPIRONOLACTONE 25 MG TAB PO SCH (03:55)
[2025-05-28] MEDS: CARVEDILOL 3.125 MG TAB PO SCH (03:55)
[2025-05-28] MEDS ORDERED: CARVEDILOL 3.125 MG TAB PO SCH (04:00)
[2025-05-28] MEDS ORDERED: SPIRONOLACTONE 25 MG TAB PO SCH ×2 (04:00→10:00)
[2025-05-28] MEDS: ACETAMINOPHEN 325 MG TAB PO PRN (04:02)
[2025-05-28] MEDS: ERGOCALCIFEROL 50,000 UNIT(1.25MG) CAP PO SCH (05:55)
[2025-05-28] MEDS ORDERED: HEPARIN SODIUM (PORCINE) 5000 UNITS/ML 1ML VIAL SC SCH (06:00)
[2025-05-28 06:41] LABS: Hematocrit 42.9 % (41.0-53.0); Hemoglobin 15.1 g/dL (13.5-17.5); Mean Corpuscular Hemoglobin 29.6 pg (28.0-32.0); Mean Corpuscular Volume 83.8 fL (80.0-100.0); Nucleated Red Blood Cells % 0.3 %
[2025-05-28 06:55] LABS: Alanine Aminotransferase 59 U/L (7-40); Albumin 4.4 g/dL (3.2-4.8); Alkaline Phosphatase 85 U/L (46-116); Anion Gap 8 (5-15); BUN/Creatinine Ratio 54.1 (10.0-20.0); Blood Urea Nitrogen 20 mg/dL (9-23); Calcium 9.9 mg/dL (8.7-10.4); Carbon Dioxide 26 mmol/L (20-31); Chloride 107 mmol/L (98-107); Glucose 98 mg/dL (74-106); Potassium 3.9 mmol/L (3.5-5.1); Sodium 141 mmol/L (136-145); Total Protein 6.7 g/dL (5.7-8.2)
[2025-05-28 06:56] LABS: Bilirubin, Total 0.6 mg/dL (0.2-1.0)
--- NOTE | 2025-05-28 09:28 | DVHINCON2 ---
Date of service: May 28, 2025 Referring Physician hospitalist Reason for Consultation right testicular mass History of Present Illness History Source: Patient, RN Notes, MD Notes Exam Limitations: No limitations HPI 59 yo male presented to the ER with right testicular pain and swelling x 3 days. past medical history of muscular dystrophy diagnosed in 2016, heart failure with reduced ejection fraction s/p AICD, multiple coronary angiographies presented to the ED with a chief complaint of generalized weakness. Patient reports that in early April he had episode of testicular infection following which she took 3 weeks of antibiotics including Bactrim and doxycycline. He was doing well until 3-4 days ago when he started to feel pain in his right testicle. He also reported of having palpitations intermittently, episodes of dizziness also with the patient is not able to walk and is wheelchair-bound because of the muscular dystrophy. He reports the last ejection fraction was 40-45% in last July and is currently on guideline directed medical therapy with lisinopril, carvedilol, spironolactone, Jardiance. Home Meds Active Scripts Cefdinir (Cefdinir) 300 Mg Cap, 300 MG PO BID for 10 Days, #20 CAP Prov:ABDI GROVER MD 04/04/25 Empagliflozin (Jardiance) 10 Mg Tab, 10 MG PO DAILY, #90 TAB Prov:TA BEAR MD 07/21/24 Metoprolol Succinate (Metoprolol Succinate Er) 25 Mg Tab, 50 TAB PO DAILY, #30 TAB 5 Refills Prov:SHANAE WALLACE MD 12/05/22 Reported Medications Hydrocodone-Acetaminophen (Hydrocodone Bitartrate/AC 10-325 mg) 1 Tab Tab, 1 TAB PO TID for 30 Days 07/21/24 Cephalexin Monohydrate (Cephalexin) 500 Mg Cap, 1 CAP PO QID for 5 Days, #20 07/21/24 Lisinopril (Lisinopril) 5 Mg Tab, 1 TAB PO DAILY 08/18/21 Fenofibrate (FENOFIBRATE) 145 Mg Tab, 1 TAB PO DAILY, #30 TAB 5 Refills 05/29/17 Cholecalciferol (VITAMIN D) 2,000 Unit Tab, 3000 UNIT PO DAILY, TAB 05/29/17 Spironolactone (Spironolactone) 25 Mg Tab, 1 TAB PO AM, #90 TAB 1 Refill 05/29/17 Folic Acid (Folic Acid) 1 Mg Tab, 1 MG PO DAILY, TAB 12/05/15 Carvedilol (Carvedilol) 6.25 Mg Tab, 6.25 MG PO BID, TAB 12/05/15 Past Medical History Patient Family History: Alcoholism G8 MOTHER GRANDFATHER Family history: Cardiovascular disease G8 FATHER Smoker: No Hx (Negative) Alocohol: None Drugs: None Domestic Violence: Neg Review of Systems Genitourinary: Pain H&P Exam Vital Signs Vital Signs Date Time Temp Pulse Resp B/P (MAP) Pulse Ox O2 Delivery O2 Flow Rate FiO2 05/28/25 08:30 98.2 83 17 103/64 (77) 95 98.2 05/27/25 22:07 Room Air* 0 21 General Appeara: Well developed, Well nourished, Normal Appearance Neuro/Mental St: Alert, Oriented Appearance: Appropriate appearance, Appropriate insight Eye contact/ Speech: Cooperative, Good eye contact, Normal speech Skin Exam: Normal inspection, Normal color, Warm/dry Labs/Xrays [place] [id number] Ph: [phone] DIAGNOSTIC IMAGING Diagnostic Imaging Report : [id number] Signed PATIENT: BIBI GUZMAN ACCT: [id number] UNIT: [id number] : 1965 LOC: ER ROOM / BED: / AGE / SEX: 59 / M ADM STATUS: REG ER SERVICE 1635 ORDERING PHYSICIAN: DIANE TRUJILLO RESIDENT PROCEDURE(s): TESUS - TESTICULAR ULTRASOUND REASON: right testicle swelling, induration ORDER NUMBER(s): [id number], ACCESSION NUMBER(s): [id number] Indication: right testicle swelling, induration Technique: Real-time ultrasound images through the scrotum. Comparison: US TESTICULAR ULTRASOUND on DOS: 04/04/25 Findings: Right testicle measures 5.6 x 4.2 x 3.5 cm. Heterogeneous appearing lesion within the right testicle that is overall hypoechoic measuring 5.6 x 5.1 cm demonstrating internal vascularity. This appears to be extending through the posterior aspect of the testicle into the scrotal wall. Some calcifications within lesion. There is moderate right hydrocele. Left testicle measures 3.2 x 1.7 x 3.8 cm. It has normal echogenicity and echotexture, with no focal solid or cystic mass. There is normal flow on color Doppler, with normal waveforms. The left epididymal head measures 10 cm,. Left scrotal james/ scrotolith measuring 3 mm. Left epididymal cyst measuring 6 mm.m left varicocele that measures 3 mm in diameter. Impression: Complex appearing lesion/ mass within the right testicle measuring 5.6 x 5.1 cm that is demonstrating internal vascularity, highly concerning for right testicular mass / neoplasm. Recommend urology consultation for further evaluation. Moderate right hydrocele. Left scrotal james measuring 3 mm. Left varicocele. Critical Result: Possible right testicular mass/neoplasm versus other complex lesion Findings discussed with Dr. Trujillo , at 05/27/2025 08:07 PM, and acknowledged receipt and understanding of the findings. .. ATED BY: JARRED BERNSTEIN MD DICTATED DATE/TIME: 05/27/251806 SIGNED BY: JARRED BERNSTEIN MD SIGNED DATE/TIME: 05/27/251806 CC: [place] [address] Ph: [phone] DIAGNOSTIC IMAGING Diagnostic Imaging Report : [id number] Signed PATIENT: BIBI GUZMAN ACCT: [id number] UNIT: [id number] : 1965 LOC: OVERFLOW ROOM / BED: [address] [place] [address] AGE / SEX: 59 / M ADM STATUS: ADM IN SERVICE 15 ORDERING PHYSICIAN: DIANE TRUJILLO RESIDENT PROCEDURE(s): ABPLIV - CT AB PEL WITH IV CON ONLY REASON: right testicular complex lesion on US ORDER NUMBER(s): [id number], ACCESSION NUMBER(s): [id number] Exam: CT CT AB PEL WITH IV CON ONLY History: right testicular complex lesion on US Comparison Study: Ultrasound testicular sonogram 05/27/2025 TECHNIQUE: Multidetector CT of the abdomen and pelvis with IV contrast. Axial, coronal and sagittal multiplanar reformats were obtained from the axial data set by the technologist. Radiation Dose Information: CT Dose: CTDI volume is 19.41 mGy. Dose-length product is 1273.69 mGy*cm FINDINGS: Bibasilar atelectasis. Partially visualized heart is unremarkable. Subcentimeter hypodense hepatic lesions that are too small to characterize. Otherwise, liver, spleen, gallbladder, pancreas and adrenal glands are unremarkable. 1.5 cm left renal hypodense lesion measuring up to 30 Hounsfield units. Otherwise, kidneys, ureters and decompressed urinary bladder unremarkable. Prostate measures 2.5 by 4.2 by 3.5 cm with Foci of calcification. Stomach is unremarkable. Small bowel loops unremarkable. Appendix is unremarkable. Small to moderate amount of fecal material within the colon. Sigmoid diverticulosis without diverticulitis. No evidence of intraperitoneal free air or free fluid. No evidence of aortic aneurysm or dissection. [id number] atherosclerotic calcification of the aorta and bilateral iliacs. No significant lymphadenopathy. Moderate fat containing left inguinal hernia. Moderate right hydrocele with heterogeneous 4.8 x 3.4 5.4 cm lesion within the right scrotal sac concerning for mass. Tortuosity of the right pampiniform plexus. Severe atrophy of lower extremity pelvic and paraspinal muscles. No destructive osseous lesions are noted. IMPRESSION: Moderate right hydrocele with 4.8 x 3.4 x 5.4 cm heterogeneous lesion within the right scrotal sac concerning for mass. Sigmoid diverticulosis without diverticulitis. 1.5 cm left renal hypodense lesion which does not measure as simple fluid. Ultrasound is recommended for further evaluation. Subcentimeter hypodense hepatic lesions are noted that are too small to characterize. ATED BY: HELENA MARCIAL DO DICTATED DATE/TIME: 05/27/252147 SIGNED BY: HELENA MARCIAL DO SIGNED DATE/TIME: 05/27/252147 CC: [place] [address] Ph: [phone] DIAGNOSTIC IMAGING Diagnostic Imaging Report : [id number] Signed PATIENT: BIBI GUZMAN ACCT: [id number] UNIT: [id number] : 1965 LOC: [facility] ROOM / BED: [id number] / 8 AGE / SEX: 59 / M ADM STATUS: ADM IN SERVICE 04 ORDERING PHYSICIAN: ISABEL VERMA RESIDENT PROCEDURE(s): KIDUS - KIDNEY REASON: RULE OUT RENAL TUMOR/METASTASIS ORDER NUMBER(s): [id number], ACCESSION NUMBER(s): [id number] RENAL ULTRASOUND REASON FOR EXAM: RULE OUT RENAL TUMOR/METASTASIS. Hypodense lesion seen in the left kidney on recent CT. COMPARISON: CT abdomen/ pelvis 05/27/2025. TECHNIQUE: Real-time sector scans in multiple planes were obtained over the kidneys, ureters and bladder. FINDINGS: The right kidney measures 9.0 cm. The left kidney measures 12.3 cm. There is a 1.5 x 1.3 x 1.4 cm anechoic structure within the superior pole of the left kidney demonstrating posterior acoustic enhancement consistent with a simple cyst. No solid mass is identified. There is no hydronephrosis. The urinary bladder is decompressed and is not well evaluated. The patient voided immediately prior to the exam. IMPRESSION: Simple 1.5 cm cyst at the superior pole of the left kidney corresponding to the lesion in question on the recent CT. No dedicated follow-up for this simple cyst is recommended. ATED BY: YOHAN HUANG MD DICTATED DATE/TIME: 05/28/25113 SIGNED BY: YOHAN HUANG MD SIGNED DATE/TIME: 05/28/25113 CC: Labs Test 05/28/25 05:57 05/28/25 00:24 05/27/25 23:50 05/27/25 21:26 Range/Units White Blood Count 4.8 4.4-10.8 10^3/uL Red Blood Count 5.12 4.5-5.90 10^6/uL Hemoglobin 15.1 13.5-17.5 g/dL Hematocrit 42.9 41.0-53.0 % Mean Corpuscular Volume 83.8 80.0-100.0 fL Mean Corpuscular Hemoglobin 29.6 28.0-32.0 pg Mean Corpuscular Hemoglobin Concent 35.3 32.0-36.0 g/dL Red Cell Distribution Width 13.2 11.8-14.3 % Platelet Count 133 L 140-450 10^3/uL Mean Platelet Volume 8.6 6.9-10.8 fL Neutrophils (%) (Auto) 65.1 37.0-80.0 % Lymphocytes (%) (Auto) 23.1 10.0-50.0 % Monocytes (%) (Auto) 9.9 0.0-12.0 % Eosinophils (%) (Auto) 1.8 0.0-7.0 % Basophils (%) (Auto) 0.1 0.0-2.0 % Neutrophils # (Auto) 3.1 1.6-8.6 10 ^3/uL Lymphocytes # (Auto) 1.1 0.4-5.4 10 ^3/uL Monocytes # (Auto) 0.5 0-1.3 10 ^3/uL Eosinophils # (Auto) 0.1 0-0.8 10 ^3/uL Basophils # (Auto) 0 0-0.2 10 ^3/uL Nucleated Red Blood Cells 0.3 % Sodium Level 141 136-145 mmol/L Potassium Level 3.9 3.5-5.1 mmol/L Chloride Level 107 98-107 mmol/L Carbon Dioxide Level 26 20-31 mmol/L Anion Gap 8 5-15 Blood Urea Nitrogen 20 9-23 mg/dL Creatinine 0.37 L 0.700-1.30 mg/dL Glomerular Filtration Rate Calc 129 >90 mL/min BUN/Creatinine Ratio 54.1 H 10.0-20.0 Serum Glucose 98 74-106 mg/dL Calcium Level 9.9 8.7-10.4 mg/dL Total Bilirubin 0.6 0.2-1.0 mg/dL Aspartate Amino Transferase (AST) 37 13-40 U/L Alanine Aminotransferase (ALT) 59 H 7-40 U/L Alkaline Phosphatase 85 46-116 U/L Total Protein 6.7 5.7-8.2 g/dL Albumin 4.4 3.2-4.8 g/dL Troponin I High Sensitivity 69 *H </=54 ng/L Urine Color Light-yellow Yellow Urine Clarity Clear Clear Urine pH 6.0 5.0-9.0 Urine Specific [place] > 1.050 H 1.001-1.035 Urine Protein Trace H Negative Urine Ketones Negative Negative Urine Blood Negative Negative /uL Urine Nitrite Negative Negative Urine Bilirubin Negative Negative Urine Urobilinogen Normal Negative mg/dL Urine Leukocyte Esterase Negative Negative /uL Urine RBC 2 0 - 3 /hpf Urine Microscopic WBC 1 0-3 /HPF Urine Squamous Epithelial Cells None seen <5 /hpf Urine Bacteria None seen None Seen /hpf Urine Mucus Few None Seen Urine Glucose Normal Normal mg/dL Urine Opiates Screen Neg NEGATIVE Urine Fentanyl Screen Neg NEGATIVE Urine Barbiturates Screen Neg NEGATIVE Urine Phencyclidine Screen Neg NEGATIVE Urine Amphetamines Screen Neg NEGATIVE Urine Benzodiazepines Screen Neg NEGATIVE Urine Cocaine Screen Neg NEGATIVE Urine Cannabinoids Screen Neg NEGATIVE Hemoglobin A1c 5.0 <5.7 % A1C Lactate Dehydrogenase 429 H 120-246 U/L Vitamin B12 Level 570 211-911 pg/mL Vitamin D 25-Hydroxy 26.1 L 30.0-100 ng/mL Folic Acid 27.60 >5.38 ng/mL Thyroid Stimulating Hormone (TSH) 1.30 0.55-4.78 uIU/mL Beta HCG, Quantitative 1.2 0-2 mIU/mL Test 05/27/25 18:05 Range/Units Erythrocyte Sedimentation Rate 8 0-20 mm/hr Lactic Acid Level 0.9 0.4-2.0 mmol/L Magnesium Level 2.2 1.6-2.6 mg/dL C-Reactive Protein High Sensitivity 0.41 <1.0 mg/dL B-Type Natriuretic Peptide 35.49 0-100 pg/mL Assessment/Plan Problem List: (1) Mass of right testicle Plan NPO after midnight consent for right radical orchiectomy cardiac clearance Plan discussed with: Patient, Other CAMRYN NOLAN LOG PREPARER May 28, 2025 09:28
[2025-05-28] MEDS ORDERED: CHOLECALCIFEROL (VITD3) 1,000UNIT=25mCg TAB PO SCH (10:00)
[2025-05-28] MEDS: FOLIC ACID 1 MG TAB PO SCH (10:28)
[2025-05-28] MEDS: EMPAGLIFLOZIN 10 MG TAB PO SCH (10:28)
[2025-05-28] MEDS: LISINOPRIL 5 MG TAB PO SCH (10:29)
[2025-05-28] MEDS: Fenofibrate 145MG PO SCH (10:30)
--- NOTE | 2025-05-28 10:45 | DVHCONRES ---
Date Seen: May 28, 2025 Resident Creating Document: JAJA MURRAY RESDIENT History of Present Illness This is a 59-year-old male with past medical history of muscle dystrophy (wheelchair-bound), HFrEF, status post ICD, came to the hospital due to right- sided scrotal pain. Ultrasound showed moderate right hydrocele, possible right testicular mass/neoplasm. Urology planned for right radical orchiectomy, cardiology, for cardiac clearance. Currently, the patient denies chest pain, shortness of breaths, cough, nausea, vomiting, orthopnea or PND. PMHx: muscle dystrophy (wheelchair-bound), HFrEF, status post ICD Home medication: Carvedilol, Jardiance, lisinopril and spironolactone Allergic history: Enoxaparin Patient seen and examined at the bedside. Patient is still complaining of right scrotal pain. Patient denied chest pain with shortness of breaths. Family History: Alcoholism G8 MOTHER GRANDFATHER Family history: Cardiovascular disease G8 FATHER Allergies: Coded Allergies: Enoxaparin (Verified Allergy, Unknown, 07/18/24) Home Meds Active Scripts Cefdinir (Cefdinir) 300 Mg Cap, 300 MG PO BID for 10 Days, #20 CAP Prov:ABDI GROVER MD 04/04/25 Empagliflozin (Jardiance) 10 Mg Tab, 10 MG PO DAILY, #90 TAB Prov:TA BEAR MD 07/21/24 Metoprolol Succinate (Metoprolol Succinate Er) 25 Mg Tab, 50 TAB PO DAILY, #30 TAB 5 Refills Prov:SHANAE WALLACE MD 12/05/22 Reported Medications Hydrocodone-Acetaminophen (Hydrocodone Bitartrate/AC 10-325 mg) 1 Tab Tab, 1 TAB PO TID for 30 Days 07/21/24 Cephalexin Monohydrate (Cephalexin) 500 Mg Cap, 1 CAP PO QID for 5 Days, #20 07/21/24 Lisinopril (Lisinopril) 5 Mg Tab, 1 TAB PO DAILY 08/18/21 Fenofibrate (FENOFIBRATE) 145 Mg Tab, 1 TAB PO DAILY, #30 TAB 5 Refills 05/29/17 Cholecalciferol (VITAMIN D) 2,000 Unit Tab, 3000 UNIT PO DAILY, TAB 7/25/17 Spironolactone (Spironolactone) 25 Mg Tab, 1 TAB PO AM, #90 TAB 1 Refill 05/29/17 Folic Acid (Folic Acid) 1 Mg Tab, 1 MG PO DAILY, TAB 12/05/15 Carvedilol (Carvedilol) 6.25 Mg Tab, 6.25 MG PO BID, TAB 12/05/15 Current Medications Current Medications Medications (Trade) Dose Ordered Sig/Gia Route PRN Reason Start Time Stop Time Status Last Admin Acetaminophen/ Hydrocodone Bitart (Purchase 5/325MG Tab) 1 tab Q4HP PRN PO MODERATE PAIN (4-6 PAIN SCALE) 05/27/25 21:15 Acetaminophen (Tylenol Tablet) 650 mg Q6HP PRN PO PAIN SCALE 1-3 OR TEMP>100.4 05/27/25 21:15 05/28/25 04:02 Empaglifozin (Jardiance) 10 mg DAILY PO 05/28/25 10:00 05/28/25 10:28 Lisinopril (Zestril Tablet) 5 mg DAILY PO 05/28/25 10:00 05/28/25 10:29 Spironolactone (Aldactone) 25 mg DAILY PO 05/28/25 10:00 05/28/25 00:09 DC Carvedilol (Coreg Tablet) 6.25 mg BID PO 05/27/25 22:00 05/28/25 00:09 DC Cholecalciferol (Vitamin D3 Tablet) 3,000 unit DAILY PO 05/28/25 10:00 05/28/25 05:44 DC Patient Own Medication 1 tab DAILY PO 05/28/25 10:00 Folic Acid 1 mg DAILY PO 05/28/25 10:00 05/28/25 10:28 Heparin Sodium (Porcine) 5,000 units Q8HR SC 05/28/25 06:00 05/27/25 23:15 DC Carvedilol (Coreg Tablet) 6.25 mg BID PO 05/28/25 04:00 05/28/25 00:24 DC Spironolactone (Aldactone) 25 mg DAILY PO 05/28/25 04:00 05/28/25 00:23 DC Spironolactone (Aldactone) 25 mg DAILY@0400 PO 05/28/25 04:00 05/28/25 03:55 Carvedilol (Coreg Tablet) 6.25 mg BID@0400,1600 PO 05/28/25 04:00 05/28/25 03:55 Ergocalciferol (Vitamin D 50,000 Unit) 50,000 unit Q7D PO 05/28/25 05:30 05/28/25 05:55 Vital Signs Vital Signs Date Time Temp Pulse Resp B/P (MAP) Pulse Ox O2 Delivery O2 Flow Rate FiO2 05/28/25 10:29 116/80 05/28/25 08:30 98.2 83 17 95 98.2 05/27/25 22:07 Room Air* 0 21 Physical Exam General Appearance: Alert, Oriented X3, Cooperative, No acute distress HEENT: Atraumatic, PERRLA, EOMI, Mucous membrane moist/pink Respiratory: Clear to auscultation, Normal air movement Cardiovascular: Regular rate, Normal S1, Normal S2, No murmurs, no chest wall tenderness Abdominal: Right-sided scrotal fullness Extremities: No clubbing, No cyanosis, No edema, Normal pulses, No tender ness/swelling Skin: No rashes, No breakdown, No significant lesion Neuro: Normal gait, Normal speech, Strength at 5/5 X4 ext, Normal tone, Sensation intact, Cranial nerves 3-12 NL, Reflexes 2+ Psych/Mental Status: Mental status NL, Mood NL Labs/Diagnostic Data Labs Test 05/28/25 05:57 05/28/25 00:24 05/27/25 23:50 05/27/25 21:26 Range/Units White Blood Count 4.8 4.4-10.8 10^3/uL Red Blood Count 5.12 4.5-5.90 10^6/uL Hemoglobin 15.1 13.5-17.5 g/dL Hematocrit 42.9 41.0-53.0 % Mean Corpuscular Volume 83.8 80.0-100.0 fL Mean Corpuscular Hemoglobin 29.6 28.0-32.0 pg Mean Corpuscular Hemoglobin Concent 35.3 32.0-36.0 g/dL Red Cell Distribution Width 13.2 11.8-14.3 % Platelet Count 133 L 140-450 10^3/uL Mean Platelet Volume 8.6 6.9-10.8 fL Neutrophils (%) (Auto) 65.1 37.0-80.0 % Lymphocytes (%) (Auto) 23.1 10.0-50.0 % Monocytes (%) (Auto) 9.9 0.0-12.0 % Eosinophils (%) (Auto) 1.8 0.0-7.0 % Basophils (%) (Auto) 0.1 0.0-2.0 % Neutrophils # (Auto) 3.1 1.6-8.6 10 ^3/uL Lymphocytes # (Auto) 1.1 0.4-5.4 10 ^3/uL Monocytes # (Auto) 0.5 0-1.3 10 ^3/uL Eosinophils # (Auto) 0.1 0-0.8 10 ^3/uL Basophils # (Auto) 0 0-0.2 10 ^3/uL Nucleated Red Blood Cells 0.3 % Sodium Level 141 136-145 mmol/L Potassium Level 3.9 3.5-5.1 mmol/L Chloride Level 107 98-107 mmol/L Carbon Dioxide Level 26 20-31 mmol/L Anion Gap 8 5-15 Blood Urea Nitrogen 20 9-23 mg/dL Creatinine 0.37 L 0.700-1.30 mg/dL Glomerular Filtration Rate Calc 129 >90 mL/min BUN/Creatinine Ratio 54.1 H 10.0-20.0 Serum Glucose 98 74-106 mg/dL Calcium Level 9.9 8.7-10.4 mg/dL Total Bilirubin 0.6 0.2-1.0 mg/dL Aspartate Amino Transferase (AST) 37 13-40 U/L Alanine Aminotransferase (ALT) 59 H 7-40 U/L Alkaline Phosphatase 85 46-116 U/L Total Protein 6.7 5.7-8.2 g/dL Albumin 4.4 3.2-4.8 g/dL Troponin I High Sensitivity 69 *H </=54 ng/L Urine Color Light-yellow Yellow Urine Clarity Clear Clear Urine pH 6.0 5.0-9.0 Urine Specific [place] > 1.050 H 1.001-1.035 Urine Protein Trace H Negative Urine Ketones Negative Negative Urine Blood Negative Negative /uL Urine Nitrite Negative Negative Urine Bilirubin Negative Negative Urine Urobilinogen Normal Negative mg/dL Urine Leukocyte Esterase Negative Negative /uL Urine RBC 2 0 - 3 /hpf Urine Microscopic WBC 1 0-3 /HPF Urine Squamous Epithelial Cells None seen <5 /hpf Urine Bacteria None seen None Seen /hpf Urine Mucus Few None Seen Urine Glucose Normal Normal mg/dL Urine Opiates Screen Neg NEGATIVE Urine Fentanyl Screen Neg NEGATIVE Urine Barbiturates Screen Neg NEGATIVE Urine Phencyclidine Screen Neg NEGATIVE Urine Amphetamines Screen Neg NEGATIVE Urine Benzodiazepines Screen Neg NEGATIVE Urine Cocaine Screen Neg NEGATIVE Urine Cannabinoids Screen Neg NEGATIVE Hemoglobin A1c 5.0 <5.7 % A1C Lactate Dehydrogenase 429 H 120-246 U/L Vitamin B12 Level 570 211-911 pg/mL Vitamin D 25-Hydroxy 26.1 L 30.0-100 ng/mL Folic Acid 27.60 >5.38 ng/mL Thyroid Stimulating Hormone (TSH) 1.30 0.55-4.78 uIU/mL Beta HCG, Quantitative 1.2 0-2 mIU/mL Test 05/27/25 18:05 Range/Units Erythrocyte Sedimentation Rate 8 0-20 mm/hr Lactic Acid Level 0.9 0.4-2.0 mmol/L Magnesium Level 2.2 1.6-2.6 mg/dL C-Reactive Protein High Sensitivity 0.41 <1.0 mg/dL B-Type Natriuretic Peptide 35.49 0-100 pg/mL Assessment ? Testicular cancer History of AF, status post ICD Muscle dystrophy NSTEMI, likely type 2 * Serial trop I is within normal limit * EKGs shows RBBB with no significant ST or T-wave changes * Metabolic equivalent (MET score), could not assess, patient is wheelchair- bound due to muscle dystrophy * Revised cardiac risk index (Raul criteria): 1 score Plan/recommendation: (Case discussed with Dr. Fair) * Patient is at [id number] risk of cardiovascular event for moderately risk surgery * Check echocardiogram * Rest of plan per primary team Thank you for giving us the opportunity to the care of your patient. Please call back if you have any question/concerns. Plan discussed with: Patient, Other (RN) JAJA MURRAY May 28, 2025 10:45
[2025-05-28 11:59] LABS: INR 0.99 (0.9-1.15); Prothrombin Time 10.5 sec (9.3-11.8)
--- NOTE | 2025-05-28 12:46 | ECG ---
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
--- NOTE | 2025-05-28 13:47 | DVHPNRES ---
Progress Note Date Seen: May 28, 2025 Resident Creating Document: HILARY KELSEY RESIDENT Medical Necessity Reason Pt with a Central, PICC or Fol: No Subjective Review of Systems Patient is a 59-year-old male with prior medical history of muscular dystrophy diagnosed in 2017, wheel chair bound, HFmrEF, ischemic cardiomyopathy status post AICD placement in 2017, and hypertension who presented to the ED with chief complaint of scrotal swelling. Patient states that for the last 1.5 years he has had intermittent episodes of testicular pain and swelling. He was being followed by his primary care physician who on 2 separate occasions sent antibiotic treatment, the last episode being in March 2025. He states that about 4 days ago he began to notice scrotal swelling again, primarily affecting the right testicle, which was accompanied by a pressure like heavy sensation in his scrotum. He refers that his right testicle has become indurated. Additionally, he states this has been accompanied by fatigue and shortness of breath, which he states he is unsure if it is attributable to this current episode or his underlying muscular dystrophy. He denies scrotal pain, fever, nausea, vomiting, chest pain and other symptoms. On evaluation in the ED, initial labs show WBCs 5.6, hemoglobin 15.7, ESR 8, sodium 138, potassium 4.3, creatinine 0.28, BUN 12, and troponins 64. 12 Lead EKG performed in ED showed NSR with RBBB without ST alterations. Chest x-ray shows no acute cardiopulmonary disease. Testicular ultrasound shows right testicle measuring 5.6 x 5.1, with mass/neoplasm versus complex lesion. Patient was admitted for further workup and monitoring. Patient seen at bedside. Patient states that he feels well, continues to have pressure-like sensation in his scrotum, and refers mild back pain. Currently denies fever, testicular pain, nausea, vomiting, bloody urine, and any other symptom. Follow-up labs show normal B-HCG levels. abdominal/pelvic CT significant for moderate right hydrocele with 4.8 x 3.4 x 5.4 cm heterogeneous lesion in the right scrotal sac concerning for mass, 0.5 cm left renal hypodensities as wishes not measure simple fluid, cm hypodense hepatic lesions noted that are too small to categorize. Follow-up renal ultrasound showed renal lesion to be a simple cyst. Patient was seen by Urology who recommended right radical orchiectomy. Due to cardiac history, Cardiology was consulted for cardiac clearance. Patient will most likely be taken for his procedure tomorrow. Review of Systems: Constitutional: Denies weight loss, fever and chills. HEENT: Denies changes in vision and hearing. Respiratory: Refers shortness of breath, denies cough Cardiovascular: Denies chest discomfort or palpitations GI: Denies abdominal distention, abdominal pain, diarrhea : refers scrotal swelling and heavy pressure sensation, Denies dysuria and urinary frequency. Musculoskeletal: Refers back pain Skin: Denies rash and pruritus. Neurological: denies dizziness headache vision or hearing problems Objective vital signs Vital Sign Date Time Temp Pulse Resp B/P (MAP) Pulse Ox O2 Delivery O2 Flow Rate FiO2 05/28/25 12:39 98.1 80 18 96 98.1 05/28/25 10:29 116/80 05/28/25 08:00 Room Air* 0 21 Total Intake and Output 05/27/25 05/27/25 05/28/25 15:00 23:00 07:00 Intake Total 100 ml Output Total 250 ml Balance -150 ml medications Current Medications Medications Dose Ordered Sig/Gia Route Start Time Stop Time Status Last Admin Dose Admin Acetaminophen/ Hydrocodone Bitart 1 tab Q4HP PRN PO 05/27/25 21:15 Acetaminophen 650 mg Q6HP PRN PO 05/27/25 21:15 05/28/25 04:02 650 MG Empaglifozin 10 mg DAILY PO 05/28/25 10:00 05/28/25 10:28 10 MG Lisinopril 5 mg DAILY PO 05/28/25 10:00 05/28/25 10:29 5 MG Patient Own Medication 1 tab DAILY PO 05/28/25 10:00 Folic Acid 1 mg DAILY PO 05/28/25 10:00 05/28/25 10:28 1 MG Spironolactone 25 mg DAILY@0400 PO 05/28/25 04:00 05/28/25 03:55 25 MG Carvedilol 6.25 mg BID@0400,1600 PO 05/28/25 04:00 05/28/25 03:55 6.25 MG Ergocalciferol 50,000 unit Q7D PO 05/28/25 05:30 05/28/25 05:55 50,000 UNIT Examination General: The patient alert and oriented in person place and time. Patient following commands HEENT: Normocephalic a, atraumatic, moist mucous membrane Respiratory/pulmonary: Clear lungs bilaterally, vesicular murmurs present in almost all lung watkins, no associated crackles or wheezes. Worsening bibasilar Abdomen: Abdomen nondistended, there is no pain to palpation in any of the abdominal quadrants, no palpable masses. Testicular: swollen scrotum more on the right than the left, hardened posterior aspect of right testicle, no pain to palpation. Extremities: there is no peripheral edema present at the lower extremities. Peripheral pulses 3+ radial right, 3+ radials soft. 3+ dorsalis pedis right. 3+ dorsalis pedis left Skin: No rashes or pruritus, there is no sacral edema present at this time. Neurological: Intact cranial nerves with no focal neurologic deficits Testicular exam was chaperoned by senior residents. laboratory and microbiology Laboratory Tests 05/28/25 05:57 Test 05/28/25 05:57 Range/Units Serum Glucose 98 74-106 mg/dL Problem List/Assessment/Plan Problem List/Assessment/Plan Assessment and plan: Right Testicular mass, possibly malignant - Right radical orchiectomy - Testicular ultrasound: Complex appearing lesion/mass in the right testicle measuring 5.6 x 5.1 cm that is demonstrating internal vascularity, highly concerning for right testicular mass/neoplasm. - Abdominal/Pelvis CT: Moderate right hydrocele with 4.8 x 3.4 x 5.4 cm heterogeneous lesion within the right scrotal sac concerning for mass. Simple right left cyst -Abdominal/Pelvis CT: 1.5 cm left renal hypodense lesion which does not measure as simple fluid. -Renal ultrasound: Simple 1.5 cm cyst at the superior pole of the left kidney corresponding to the lesion in question on recent CT. Sigmoid diverticulosis without diverticulitis Chronic HFmrEF, not exacerbated -Continue home medications Hypertension -Continue home medications History of ischemic cardiomyopathy -AICD placement in 2017 History of Muscular Dystrophy Case discussed with Dr. Fernandes. Goals of care discussed with the patient for over 25 minutes. FULL CODE. Plan discussed with: Patient Date of Service: May 28, 2025 Billing Provider: BRYON FERNANDES MD Common Visit Codes: [id number] INP/OBS CARE(HIGH) HILARY KELSEY RESIDENT May 28, 2025 13:47 BRYON FERNANDES MD Jun 02, 2025 20:14
[2025-05-29] VITALS (8 sets, daily range): BP systolic 105–132; BP diastolic 71–85; PULSE 68–99; RESP 18–20; TEMP 97.5–97.9; O2SAT 97–99
[2025-05-29] MEDS ORDERED: KETAMINE 50mg/ML 1ml syringe ONE ×2 (07:30→08:21)
[2025-05-29] MEDS ORDERED: GLYCOPYRROLATE 0.2 MG/ML 1ML VIAL ONE (07:31)
[2025-05-29] MEDS ORDERED: ONDANSETRON HCL 4 MG/2 ML VIAL ONE (07:31)
[2025-05-29] MEDS ORDERED: PROPOFOL 10 MG/ML 20 ML IV ONE (07:31)
[2025-05-29] MEDS ORDERED: MIDAZOLAM HCL 2MG/2ML 2ml VIAL (1mg/ml) ONE ×2 (07:31→08:01)
--- NOTE | 2025-05-29 07:45 | DVHNC2 ---
Procedure - OPERATIVE REPORT Pre-op. Diagnosis: Testicular Mass- RIGHT HFmrEF, ischemic cardiomyopathy, status post AICD, hypertension, muscular dystrophy BPH Stranguria Post-op. Diagnosis: Same as pre-op diagnosis Operation: Radical Orchiectomy - RIGHT Agrawal placement Anesthesia: IV Sedation and Local Indications: Options were reviewed with patient including conservative management vs right radical orchiectomy. Risks and benefits of the surgery were reviewed with patient including infection, bleeding, hematoma formation, chronic pain, wound dehiscence, injury to nearby structures and risk of anesthesia. Given these risks, patient agreed to proceed with the surgery and signed the consent form. Details of Procedure: After obtaining the consent, patient was taken to OR suite and IV anesthesia was administered in supine position. Area of genitalia and lower abdomen are widely prepped and draped in usual sterile fashion. 16F Agrawal catheter was placed due to history of stranguria anticipating postoperative urinary retention. Local injection of lidocaine 1% with epinephrine was performed along the right inguinal incision site. Right inguinal incision was made along the line of skin crease with scalpel and subsequent tissues were taken down to open the Dale's fascia. The external oblique fascia was opened with care to avoid injury to the nerve. The spermatic was identified and brought out from the opening with care taken not to rupture the testicle. The Gubernacular attachement to the testicle was resected and the entire testicle was taken out and wrapped up in gauze. The Spermatic cord was clamped proximally and ligated and transsected. The right testicle with partial cord was removed. The spermatic cord stump was doubly ligated with 2-0 Silk suture and placed underneath the external oblique fascia, which was closed with Vicryl suture. Two layer closure of the incision was carried out with regulo used for the subcutaneous closure of the skin. Lidocaine local anesthetic was applied to the skin. Patient was awoken and taken to the RR in stable condition. Specimens: Right Testicle with partial spermatic cord Complications: None Findings: EBL: Minimal Notes: Agrawal removal in one week with cystoscopy TBA if unable to pass voiding trial Diagnosis: Visit Code: Procedure Codes: 65004 EXPLORATION FOR TESTIS. OPERATIVE REPORT Pre-op. Diagnosis: Testicular Mass- RIGHT HFmrEF, ischemic cardiomyopathy, status post AICD, hypertension, muscular dystrophy BPH Stranguria Post-op. Diagnosis: Same as pre-op diagnosis Operation: Radical Orchiectomy - RIGHT Agrawal placement Anesthesia: IV Sedation and Local Indications: Options were reviewed with patient including conservative management vs right radical orchiectomy. Risks and benefits of the surgery were reviewed with patient including infection, bleeding, hematoma formation, chronic pain, wound dehiscence, injury to nearby structures and risk of anesthesia. Given these risks, patient agreed to proceed with the surgery and signed the consent form. Details of Procedure: After obtaining the consent, patient was taken to OR suite and IV anesthesia was administered in supine position. Area of genitalia and lower abdomen are widely prepped and draped in usual sterile fashion. 16F Agrawal catheter was plac ed due to history of stranguria anticipating postoperative urinary retention. Local injection of lidocaine 1% with epinephrine was performed along the right inguinal incision site. Right inguinal incision was made along the line of skin crease with scalpel and subsequent tissues were taken down to open the Dale's fascia. The external oblique fascia was opened with care to avoid injury to the nerve. The spermatic was identified and brought out from the opening with care taken not to rupture the testicle. The Gubernacular attachement to the testicle was resected and the entire testicle was taken out and wrapped up in gauze. The Spermatic cord was clamped proximally and ligated and transsected. The right testicle with partial cord was removed. The spermatic cord stump was doubly ligated with 2-0 Silk suture and placed underneath the external oblique fascia, which was closed with Vicryl suture. Two layer closure of the incision was carried out with regulo used for the subcutaneous closure of the skin. Lidocain e local anesthetic was applied to the skin. Patient was awoken and taken to the RR in stable condition. Specimens: Right Testicle with partial spermatic cord Complications: None Findings: EBL: Minimal Notes: Agrawal removal in one week with cystoscopy TBA if unable to pass voiding trial KYLE DAVILA MD May 29, 2025 07:45
[2025-05-29] MEDS: ceFAZolin 2 GM/D5W50ml 50 ML IV ONE (08:00)
[2025-05-29 08:07] LABS: Prostate Specific Antigen 0.2 ng/mL (0.0-4.0)
[2025-05-29] MEDS: LIDOCAINE W/ EPINEPHRINE 1% 20ML VIAL ONE (08:34)
[2025-05-29] MEDS ORDERED: HYDROmorphone HCL 2 MG/ML VL/or syr IV PRN (09:00)
--- NOTE | 2025-05-29 09:12 | DVHSR ---
APPROVED REPORT EXAM: LIMITED Two-dimensional and M-mode echocardiogram with Doppler and color Doppler. Blood Pressure: 118/80 mmHg INDICATION CHF Surgery/Intervention Pacemaker: RISK FACTORS Height: 5' 11", Weight: 183 DIMENSIONS LVDd5.3 (3.8-5.7cm)LA (2D) (1.9-4.0cm)Aortic Root (2.0-3.7cm) LVDs4.4 (2.5-4.0cm)LA (MM) (1.9-4.0cm)Aortic Cusp Exc (1.5-2.0cm) EF (%) 35.0 (55-70%)Rt. Atrium (1.9-4.0cm)Asc. Aorta cm IVSd1.0 (0.7-1.1cm)RV (D) (1.8-2.4cm) PWd1.0 (0.7-1.1cm) Mitral Valve MitralMitral Stenosis E wave0.40m/sMV Mean GR.mmHg A wave0.60m/sMV Peak GR.mmHg E/A ratio0.72D MVAcm2 Aortic Valve Aortic ValveAortic Stenosis V10.40m/[place] Mean GR.2mmHg V20.90m/[place] Peak GR.3mmHg LVOT Diameter2.0 (1.8-2.4cm)Doppler AVA1.40cm2 Other Information Quality : Technically LimitedRhythm : Technically limited study due to body habitus, patient has muscular distrophy and can not turn. Conclusion MODERATELY DILATED LV MODERATE DEGREE LV GLOBAL HYPOKINESIS LV EF IS ONLY IN RANGE OF 25% AND IS SIGNIFICANTLY REDUCED STUDY IS LIMITED GROSSLY NORMAL VALVES NO EFFUSION
[2025-05-29 10:34] LABS: Hematocrit 44.4 % (41.0-53.0); Hemoglobin 15.3 g/dL (13.5-17.5); Mean Corpuscular Hemoglobin 29.6 pg (28.0-32.0); Mean Corpuscular Volume 85.6 fL (80.0-100.0); Nucleated Red Blood Cells % 0.1 %
[2025-05-29 10:40] LABS: Chloride 105 mmol/L (98-107); Potassium 4.0 mmol/L (3.5-5.1)
[2025-05-29 10:41] LABS: Anion Gap 9 (5-15); Calcium 9.2 mg/dL (8.7-10.4); Carbon Dioxide 22 mmol/L (20-31)
[2025-05-29 10:46] LABS: BUN/Creatinine Ratio 60.7 (10.0-20.0); Blood Urea Nitrogen 17 mg/dL (9-23)
[2025-05-29 10:47] LABS: Glucose 93 mg/dL (74-106); Sodium 136 mmol/L (136-145)
[2025-05-29] MEDS: POLYETHYLENE GLYCOL 17 GM PWDR PO ONE (13:23)
[2025-05-29] MEDS: ONDANSETRON HCL 4 MG/2 ML VIAL IV ONE (13:33)
[2025-05-29] MEDS: ACETAMINOPHEN IV 1000 MG/100ML (10MG/ML) IV ONE (13:33)
--- NOTE | 2025-05-29 15:44 | DVHPNRES ---
Progress Note Date Seen: May 29, 2025 Resident Creating Document: HILARY KELSEY Medical Necessity Reason Pt with a Central, PICC or Fol: Yes The following are medically ne: Agrawal Catheter Medical Necessity Reason Surgery Subjective Review of Systems Patient is a 59-year-old male with prior medical history of muscular dystrophy diagnosed in 2017, wheel chair bound, HFmrEF, ischemic cardiomyopathy status post AICD placement in 2017, and hypertension who presented to the ED with chief complaint of scrotal swelling. Patient states that for the last 1.5 years he has had intermittent episodes of testicular pain and swelling. He was being followed by his primary care physician who on 2 separate occasions sent antibiotic treatment, the last episode being in March 2025. He states that about 4 days ago he began to notice scrotal swelling again, primarily affecting the right testicle, which was accompanied by a pressure like heavy sensation in his scrotum. He refers that his right testicle has become indurated. Additionally, he states this has been accompanied by fatigue and shortness of breath, which he states he is unsure if it is attributable to this current episode or his underlying muscular dystrophy. He denies scrotal pain, fever, nausea, vomiting, chest pain and other symptoms. On evaluation in the ED, initial labs show WBCs 5.6, hemoglobin 15.7, ESR 8, sodium 138, potassium 4.3, creatinine 0.28, BUN 12, and troponins 64. 12 Lead EKG performed in ED showed NSR with RBBB without ST alterations. Chest x-ray shows no acute cardiopulmonary disease. Testicular ultrasound shows right testicle measuring 5.6 x 5.1, with mass/neoplasm versus complex lesion. Patient was admitted for further workup and monitoring.Follow- up labs show normal B-HCG levels. abdominal/pelvic CT significant for moderate right hydrocele with 4.8 x 3.4 x 5.4 cm heterogeneous lesion in the right scrotal sac concerning for mass, 0.5 cm left renal hypodensities as wishes not measure simple fluid, cm hypodense hepatic lesions noted that are too small to categorize. Follow-up renal ultrasound showed renal lesion to be a simple cyst. Patient was seen by Urology who recommended right radical orchiectomy. Patient seen at bedside. Patient states that he feels well, refers some pain at the surgical site but is tolerable. Denies any shortness of breath, nausea, chest pain, palpitations, or any other symptoms. Follow up labs significant for LDH 429. He was taken for radical right orchiectomy today, specimen has been sent for biopsy. We will continue to monitor with possible discharge tomorrow. Objective vital signs Vital Sign Date Time Temp Pulse Resp B/P (MAP) Pulse Ox O2 Delivery O2 Flow Rate FiO2 05/29/25 13:00 97.7 72 18 120/83 (95) 99 97.7 05/29/25 09:41 Room Air* 0 21 Total Intake and Output 05/28/25 05/28/25 05/29/25 15:00 23:00 07:00 Intake Total 460 ml 400 ml Output Total 300 ml 720 ml Balance 160 ml -320 ml medications Current Medications Medications Dose Ordered Sig/Gia Route Start Time Stop Time Status Last Admin Dose Admin Acetaminophen/ Hydrocodone Bitart 1 tab Q4HP PRN PO 05/27/25 21:15 Acetaminophen 650 mg Q6HP PRN PO 05/27/25 21:15 05/29/25 13:23 650 MG Empaglifozin 10 mg DAILY PO 05/28/25 10:00 05/29/25 09:49 10 MG Lisinopril 5 mg DAILY PO 05/28/25 10:00 05/29/25 09:49 5 MG Patient Own Medication 1 tab DAILY PO 05/28/25 10:00 Folic Acid 1 mg DAILY PO 05/28/25 10:00 05/29/25 09:50 1 MG Spironolactone 25 mg DAILY@0400 PO 05/28/25 04:00 05/29/25 04:37 25 MG Carvedilol 6.25 mg BID@0400,1600 PO 05/28/25 04:00 05/29/25 04:41 6.25 MG Ergocalciferol 50,000 unit Q7D PO 05/28/25 05:30 05/28/25 05:55 50,000 UNIT Examination General: The patient alert and oriented in person place and time. Patient following commands HEENT: Normocephalic a, atraumatic, moist mucous membrane Respiratory/pulmonary: Clear lungs bilaterally, vesicular murmurs present in almost all lung watkins, no associated crackles or wheezes. Abdomen: Abdomen nondistended, there is no pain to palpation in any of the abdominal quadrants, no palpable masses. : Agrawal catheter present and draining clear urine Testicular: area is clean, dry, and covered Extremities: there is no peripheral edema present at the lower extremities. Peripheral pulses 3+ radial right, 3+ radials soft. 3+ dorsalis pedis right. 3+ dorsalis pedis left Skin: No rashes or pruritus. Neurological: Intact cranial nerves with no focal neurologic deficits laboratory and microbiology Laboratory Tests 05/29/25 09:40 Test 05/29/25 09:40 Range/Units Serum Glucose 93 74-106 mg/dL Microbiology Date/Time Source Procedure Growth Status 05/27/25 18:05 Blood Blood Culture - Preliminary NO GROWTH AFTER 24 HOURS OF INCUBATION. Resulted Problem List/Assessment/Plan Problem List/Assessment/Plan Assessment and plan: Right Testicular mass, possibly malignant - s/p Right radical orchiectomy today - Testicular ultrasound: Complex appearing lesion/mass in the right testicle measuring 5.6 x 5.1 cm that is demonstrating internal vascularity, highly concerning for right testicular mass/neoplasm. - Abdominal/Pelvis CT: Moderate right hydrocele with 4.8 x 3.4 x 5.4 cm heterogeneous lesion within the right scrotal sac concerning for mass. - LDH: 425 Simple right left cyst -Abdominal/Pelvis CT: 1.5 cm left renal hypodense lesion which does not measure as simple fluid. -Renal ultrasound: Simple 1.5 cm cyst at the superior pole of the left kidney corresponding to the lesion in question on recent CT. Sigmoid diverticulosis without diverticulitis Chronic HFmrEF, not exacerbated -Continue home medications Hypertension -Continue home medications History of ischemic cardiomyopathy -AICD placement in 2017 History of Muscular Dystrophy Case discussed with Dr. Dudley. Goals of care discussed with the patient for over 25 minutes. FULL CODE. Plan discussed with: Patient Date of Service: May 29, 2025 Billing Provider: BRYON DUDLEY MD Common Visit Codes: [id number] INP/OBS CARE(HIGH) HILARY KELSEY RESIDENT May 29, 2025 15:44 BRYON DUDLEY MD Jun 04, 2025 13:21
[2025-05-30] VITALS (9 sets, daily range): BP systolic 94–122; BP diastolic 57–89; PULSE 94–117; RESP 16–21; TEMP 98–100.3; O2SAT 93–100
[2025-05-30] MEDS: HYDROcodone-ACET 5/325MG TAB PO PRN (01:20)
[2025-05-30] MEDS: LACTULOSE 20Gm/30ML SOLN PO ONE (11:20)
--- NOTE | 2025-05-30 17:16 | DVHPNRES ---
Progress Note Date Seen: May 30, 2025 Resident Creating Document: SHEBA MATTHEWS RESIDENT Medical Necessity Reason Pt with a Central, PICC or Fol: Yes The following are medically ne: Agrawal Catheter Subjective Review of Systems Patient is a 59-year-old male with prior medical history of muscular dystrophy diagnosed in 2017, wheel chair bound, HFmrEF, ischemic cardiomyopathy status post AICD placement in 2017, and hypertension who presented to the ED with chief complaint of scrotal swelling. Patient states that for the last 1.5 years he has had intermittent episodes of testicular pain and swelling. He was being followed by his primary care physician who on 2 separate occasions sent antibiotic treatment, the last episode being in March 2025. He states that about 4 days ago he began to notice scrotal swelling again, primarily affecting the right testicle, which was accompanied by a pressure like heavy sensation in his scrotum. He refers that his right testicle has become indurated. Additionally, he states this has been accompanied by fatigue and shortness of breath, which he states he is unsure if it is attributable to this current episode or his underlying muscular dystrophy. He denies scrotal pain, fever, nausea, vomiting, chest pain and other symptoms. On evaluation in the ED, initial labs show WBCs 5.6, hemoglobin 15.7, ESR 8, sodium 138, potassium 4.3, creatinine 0.28, BUN 12, and troponins 64. 12 Lead EKG performed in ED showed NSR with RBBB without ST alterations. Chest x-ray shows no acute cardiopulmonary disease. Testicular ultrasound shows right testicle measuring 5.6 x 5.1, with mass/neoplasm versus complex lesion. Patient was admitted for further workup and monitoring.Follow- up labs show normal B-HCG levels. abdominal/pelvic CT significant for moderate right hydrocele with 4.8 x 3.4 x 5.4 cm heterogeneous lesion in the right scrotal sac concerning for mass, 0.5 cm left renal hypodensities as wishes not measure simple fluid, cm hypodense hepatic lesions noted that are too small to categorize. Follow-up renal ultrasound showed renal lesion to be a simple cyst. Patient was seen by Urology who recommended right radical orchiectomy. Patient seen at bedside. Patient appears in mild distress, alert x3, patient complains of 6/10 pain in the region of right testicular surgery. He denies any nausea, vomiting, dizziness, headaches, diarrhea, dysuria, hematuria, fevers, chills. Right radical testicular orchiectomy was performed yesterday, and patient is eating and tolerating well. Patient is informed to have a voiding trial with removal of Agrawal's and if he is tolerating urination well we can discharge him tomorrow. Social service consult was placed for home hospice and transport services. Objective vital signs Vital Sign Date Time Temp Pulse Resp B/P (MAP) Pulse Ox O2 Delivery O2 Flow Rate FiO2 05/30/25 16:16 102 114/77 05/30/25 16:15 100.3 05/30/25 13:00 17 100 05/30/25 07:50 Room Air* 0 21 Total Intake and Output 05/29/25 05/29/25 05/30/25 15:00 23:00 07:00 Intake Total 50 ml 240 ml 220 ml Output Total 20 ml 700 ml 400 ml Balance 30 ml -460 ml -180 ml medications Current Medications Medications Dose Ordered Sig/Gia Route Start Time Stop Time Status Last Admin Dose Admin Acetaminophen/ Hydrocodone Bitart 1 tab Q4HP PRN PO 05/27/25 21:15 05/30/25 08:01 1 TAB Acetaminophen 650 mg Q6HP PRN PO 05/27/25 21:15 05/30/25 16:15 650 MG Empaglifozin 10 mg DAILY PO 05/28/25 10:00 05/30/25 09:44 10 MG Lisinopril 5 mg DAILY PO 05/28/25 10:00 05/30/25 09:44 5 MG Patient Own Medication 1 tab DAILY PO 05/28/25 10:00 Folic Acid 1 mg DAILY PO 05/28/25 10:00 05/30/25 09:44 1 MG Spironolactone 25 mg DAILY@0400 PO 05/28/25 04:00 05/30/25 04:20 25 MG Carvedilol 6.25 mg BID@0400,1600 PO 05/28/25 04:00 05/30/25 16:16 6.25 MG Ergocalciferol 50,000 unit Q7D PO 05/28/25 05:30 05/28/25 05:55 50,000 UNIT Examination General: Patient alert and oriented in person, place and time. Patient following commands. HEENT: Normocephalic, atraumatic, moist mucous membranes Respiratory/pulmonary: Clear lungs bilaterally, vesicular murmurs present in almost all lung watkins, no associated crackles or wheezes. Cardiovascular: Normal heart sounds S1 and S2 with no associated murmurs : Agrawal catheter present and draining clear urine Testicular: area is clean, dry, and covered Abdomen: Abdomen nondistended, there is no pain to palpation in any of the abdominal quadrants, no palpable masses. Extremities: There is no peripheral edema present at the lower extremities. Peripheral Pulses: 3+ Radial (R). 3+ Radial (L). 3+ Dorsalis pedis (R). 3+ Dorsalis pedis(L) Skin: No rashes or pruritus, there is no sacral edema present at this time. Neurological: Intact cranial nerves with no focal neurologic deficits laboratory and microbiology Laboratory Tests 05/29/25 09:40 Test 05/29/25 09:40 Range/Units Serum Glucose 93 74-106 mg/dL Microbiology Date/Time Source Procedure Growth Status 05/27/25 18:05 Blood Blood Culture - Preliminary NO GROWTH AFTER 48 HOURS OF INCUBATION. Resulted Problem List/Assessment/Plan Problem List/Assessment/Plan Right Testicular mass, possibly malignant - s/p Right radical orchiectomy today - Testicular ultrasound: Complex appearing lesion/mass in the right testicle measuring 5.6 x 5.1 cm that is demonstrating internal vascularity, highly concerning for right testicular mass/neoplasm. - Abdominal/Pelvis CT: Moderate right hydrocele with 4.8 x 3.4 x 5.4 cm heterogeneous lesion within the right scrotal sac concerning for mass. - LDH: 425 - radical right orchiectomy performed, and if patient tolerates voiding trial can discharge tomorrow Simple right left cyst -Abdominal/Pelvis CT: 1.5 cm left renal hypodense lesion which does not measure as simple fluid. -Renal ultrasound: Simple 1.5 cm cyst at the superior pole of the left kidney corresponding to the lesion in question on recent CT. Sigmoid diverticulosis without diverticulitis Chronic HFmrEF, not exacerbated -Continue home medications Hypertension -Continue home medications History of ischemic cardiomyopathy -AICD placement in 2017 History of Muscular Dystrophy Case discussed with Dr. Galarza Goals of care discussed with the patient for over 25 minutes. FULL CODE. Plan discussed with: Patient My Orders My Orders Orders - SHEBA MATTHEWS RESIDENT Procedure Category Date Status Time * Deep Submergence Vehicle Operator CONS 7/26/25 Transmitted Consult 11:54 Date of Service: May 30, 2025 Billing Provider: LLUVIA GALARZA DO Common Visit Codes: [id number] INP/OBS CARE(HIGH) SHEBA MATTHEWS RESIDENT May 30, 2025 17:16 LLUVIA GALARZA DO Jun 01, 2025 08:26
[2025-05-31] VITALS (9 sets, daily range): BP systolic 108–121; BP diastolic 75–85; PULSE 87–104; RESP 16–20; TEMP 98.3–98.9; O2SAT 96–98
[2025-05-31 07:17] LABS: Chloride 100 mmol/L (98-107); Potassium 3.6 mmol/L (3.5-5.1)
[2025-05-31 07:18] LABS: Anion Gap 14 (5-15); Carbon Dioxide 21 mmol/L (20-31)
[2025-05-31 07:19] LABS: Calcium 9.6 mg/dL (8.7-10.4)
[2025-05-31 07:24] LABS: BUN/Creatinine Ratio 62.1 (10.0-20.0); Blood Urea Nitrogen 18 mg/dL (9-23)
[2025-05-31 07:27] LABS: Glucose 69 mg/dL (74-106); Sodium 135 mmol/L (136-145)
[2025-05-31 13:26] LABS: Hematocrit 43.7 % (41.0-53.0); Hemoglobin 15.5 g/dL (13.5-17.5); Mean Corpuscular Hemoglobin 29.7 pg (28.0-32.0); Mean Corpuscular Volume 83.7 fL (80.0-100.0)
[2025-05-31 14:01] LABS: RBC Morphology Normal; Total Cells Counted 100.0 (100)
--- NOTE | 2025-05-31 16:21 | DVHPNRES ---
Progress Note Date Seen: May 31, 2025 Resident Creating Document: HILARY KELSEY RESIDENT Medical Necessity Reason Pt with a Central, PICC or Fol: No Subjective Review of Systems Patient is a 59-year-old male with prior medical history of muscular dystrophy diagnosed in 2017, wheel chair bound, HFmrEF, ischemic cardiomyopathy status post AICD placement in 2017, and hypertension who presented to the ED with chief complaint of scrotal swelling. Patient states that for the last 1.5 years he has had intermittent episodes of testicular pain and swelling. He was being followed by his primary care physician who on 2 separate occasions sent antibiotic treatment, the last episode being in March 2025. He states that about 4 days ago he began to notice scrotal swelling again, primarily affecting the right testicle, which was accompanied by a pressure like heavy sensation in his scrotum. He refers that his right testicle has become indurated. Additionally, he states this has been accompanied by fatigue and shortness of breath, which he states he is unsure if it is attributable to this current episode or his underlying muscular dystrophy. He denies scrotal pain, fever, nausea, vomiting, chest pain and other symptoms. On evaluation in the ED, initial labs show WBCs 5.6, hemoglobin 15.7, ESR 8, sodium 138, potassium 4.3, creatinine 0.28, BUN 12, and troponins 64. 12 Lead EKG performed in ED showed NSR with RBBB without ST alterations. Chest x-ray shows no acute cardiopulmonary disease. Testicular ultrasound shows right testicle measuring 5.6 x 5.1, with mass/neoplasm versus complex lesion. Patient was admitted for further workup and monitoring.Follow- up labs show normal B-HCG levels. abdominal/pelvic CT significant for moderate right hydrocele with 4.8 x 3.4 x 5.4 cm heterogeneous lesion in the right scrotal sac concerning for mass, 0.5 cm left renal hypodensities as wishes not measure simple fluid, cm hypodense hepatic lesions noted that are too small to categorize. Follow-up renal ultrasound showed renal lesion to be a simple cyst. Follow up labs significant for LDH 429. He was taken for radical right orchiectomy on 05/29/2025, specimen was sent for biopsy. Patient seen at bedside. Patient states he feels well, has some minor pain in the surgical area. Has been able to tolerate oral diet without issue, is having bowel movements, and is has been able to void without the Agrawal. Denies chest pain, nausea, vomiting, abdominal pain, or other symptoms. Overnight, patient had a febrile peak of 100.3 F, he was given acetaminophen and this subsequently resolved. Due to this, follow up CBC and cultures were taken. CBC was within normal range, cultures are still pending. Patient is pending resumption of hospice. We will continue to monitor. Objective vital signs Vital Sign Date Time Temp Pulse Resp B/P (MAP) Pulse Ox O2 Delivery O2 Flow Rate FiO2 05/31/25 13:30 98.9 87 19 118/84 (95) 98 98.9 05/31/25 08:10 Room Air* 0 21 Total Intake and Output 05/30/25 05/30/25 05/31/25 15:00 23:00 07:00 Intake Total 450 ml 600 ml Output Total 500 ml 300 ml Balance -50 ml 300 ml medications Current Medications Medications Dose Ordered Sig/Gia Route Start Time Stop Time Status Last Admin Dose Admin Acetaminophen/ Hydrocodone Bitart 1 tab Q4HP PRN PO 05/27/25 21:15 05/30/25 08:01 1 TAB Acetaminophen 650 mg Q6HP PRN PO 05/27/25 21:15 05/31/25 04:50 650 MG Empaglifozin 10 mg DAILY PO 05/28/25 10:00 05/31/25 09:30 10 MG Lisinopril 5 mg DAILY PO 05/28/25 10:00 05/31/25 09:30 5 MG Patient Own Medication 1 tab DAILY PO 05/28/25 10:00 Folic Acid 1 mg DAILY PO 05/28/25 10:00 05/31/25 09:30 1 MG Spironolactone 25 mg DAILY@0400 PO 05/28/25 04:00 05/31/25 04:50 25 MG Carvedilol 6.25 mg BID@0400,1600 PO 05/28/25 04:00 05/31/25 04:51 6.25 MG Ergocalciferol 50,000 unit Q7D PO 05/28/25 05:30 05/28/25 05:55 50,000 UNIT Examination General: The patient alert and oriented in person place and time. Patient following commands HEENT: Normocephalic, atraumatic, moist mucous membrane Respiratory/pulmonary: Clear lungs bilaterally, vesicular murmurs present in almost all lung watkins, no associated crackles or wheezes. Abdomen: Abdomen nondistended, soft, tympanic to percussion, there is no pain to palpation in any of the abdominal quadrants, no palpable masses. Testicular: area is clean, dry, and covered Extremities: there is no peripheral edema present at the lower extremities. Peripheral pulses 3+ radial right, 3+ radials soft. 3+ dorsalis pedis right. 3+ dorsalis pedis left Skin: No rashes or pruritus. Neurological: Intact cranial nerves with no focal neurologic deficits laboratory and microbiology Laboratory Tests 05/31/25 13:00 05/31/25 05:11 Test 05/31/25 05:11 Range/Units Serum Glucose 69 L 74-106 mg/dL Microbiology Date/Time Source Procedure Growth Status 05/27/25 18:05 Blood Blood Culture - Preliminary NO GROWTH AFTER 72 HOURS OF INCUBATION. Resulted Problem List/Assessment/Plan Problem List/Assessment/Plan Assessment and plan: Right Testicular mass, possibly malignant - s/p Right radical orchiectomy 05/29/2025 - Testicular ultrasound: Complex appearing lesion/mass in the right testicle measuring 5.6 x 5.1 cm that is demonstrating internal vascularity, highly concerning for right testicular mass/neoplasm. - Abdominal/Pelvis CT: Moderate right hydrocele with 4.8 x 3.4 x 5.4 cm heterogeneous lesion within the right scrotal sac concerning for mass. - LDH: 425 Simple right left cyst -Abdominal/Pelvis CT: 1.5 cm left renal hypodense lesion which does not measure as simple fluid. -Renal ultrasound: Simple 1.5 cm cyst at the superior pole of the left kidney corresponding to the lesion in question on recent CT. Sigmoid diverticulosis without diverticulitis Chronic HFmrEF, not exacerbated -Continue home medications Hypertension -Continue home medications History of ischemic cardiomyopathy -AICD placement in 2017 History of Muscular Dystrophy Case discussed with Dr. Galarza. Goals of care discussed with the patient for over 25 minutes. FULL CODE. Plan discussed with: Patient My Orders My Orders Orders - HILARY KELSEY RESIDENT Procedure Category Date Status Time Urinalysis LAB 05/31/25 Logged 12:21 Urine Bacterial JAXSON 05/31/25 Logged Culture 12:21 Date of Service: May 31, 2025 Billing Provider: LLUVIA GALARZA DO Common Visit Codes: [id number] INP/OBS CARE(HIGH) HILARY KELSEY RESIDENT May 31, 2025 16:21 LLUVIA GALARZA DO Jun 01, 2025 08:26
[2025-06-01 01:00] VITALS: BP 125/84; PULSE 95; RESP 20; TEMP 99.1; O2SAT 97
[2025-06-01 05:00] VITALS: BP 103/69; PULSE 103; RESP 16; TEMP 99; O2SAT 98
[2025-06-01 06:35] LABS: Hematocrit 41.1 % (41.0-53.0); Hemoglobin 14.8 g/dL (13.5-17.5); Mean Corpuscular Hemoglobin 29.9 pg (28.0-32.0); Mean Corpuscular Volume 83.1 fL (80.0-100.0); Nucleated Red Blood Cells % 0.0 %
[2025-06-01 06:47] LABS: Anion Gap 13 (5-15); Carbon Dioxide 20 mmol/L (20-31); Chloride 101 mmol/L (98-107); Potassium 3.5 mmol/L (3.5-5.1)
[2025-06-01 06:48] LABS: Calcium 9.2 mg/dL (8.7-10.4)
[2025-06-01 06:53] LABS: BUN/Creatinine Ratio 65.4 (10.0-20.0); Blood Urea Nitrogen 17 mg/dL (9-23); Glucose 82 mg/dL (74-106); Sodium 134 mmol/L (136-145)
[2025-06-01 08:00] VITALS: PULSE 79; PULSE 84; RESP 17; O2SAT 96
[2025-06-01 09:00] VITALS: BP 101/65; PULSE 84; RESP 19; TEMP 98.9; O2SAT 96
[2025-06-01 13:00] VITALS: BP 123/78; PULSE 93; RESP 17; TEMP 99.1; O2SAT 97
[2025-06-01 13:30] LABS: COVID19 ANTIGEN SOFIA FIA POSITIVE (NEGATIVE)
[2025-06-01] MEDS ORDERED: REMDESIVIR PER PHARMACY 0 ML IV SCH (15:00)
--- NOTE | 2025-06-01 15:08 | DVHPNRES ---
Progress Note Date Seen: Jun 01, 2025 Resident Creating Document: YOLIE GONZALEZ RESIDENT Medical Necessity Reason Pt with a Central, PICC or Fol: No Subjective Review of Systems Michele Monsalve is a 59-year-old male with prior medical history of muscular dystrophy diagnosed in 2017, wheel chair bound, HFmrEF, ischemic cardiomyopathy status post AICD placement in 2017, and hypertension who presented to the ED with chief complaint of scrotal swelling. He complained of intermittent episodes of testicular pain and swelling for the past 1 and half year. He was being managed by his primary care physician with antibiotic treatment, the last episode being in March 2025. 4 days before the admission, he began to notice scrotal swelling again, primarily affecting the right testicle, which was accompanied by a pressure like heavy sensation in his scrotum. He reports that his right testicle has become indurated. Accompanied by fatigue and shortness of breath, he was unsure if it is attributable to this current episode or his underlying muscular dystrophy. On evaluation in the ER, initial labs showed WBCs 5.6, hemoglobin 15.7, ESR 8, sodium 138, potassium 4.3, creatinine 0.28, BUN 12, and troponins 64. 12 Lead EKG performed in ER showed NSR with RBBB without ST alterations. Chest x-ray revealed no acute cardiopulmonary disease. Testicular ultrasound shows right testicle measuring 5.6 x 5.1, with mass/neoplasm versus complex lesion. Abdominal/pelvic CT significant for moderate right hydrocele with 4.8 x 3.4 x 5.4 cm heterogeneous lesion in the right scrotal sac concerning for mass, 0.5 cm left renal hypodensities as wishes not measure simple fluid, cm hypodense hepatic lesions noted that are too small to categorize. Follow-up renal ultrasound showed renal lesion to be a simple cyst. Follow up labs significant for LDH 429, normal beta HCG. He underwent radical right orchiectomy on 05/29/2025, specimen was sent for biopsy. Overnight, patient had a febrile peak of 100.3 F, resolved with acetaminophen. Follow up CBC was WNL and cultures negative. He was examined at bedside today. He complained of flu-like symptoms, including low-grade fever, chills, cough. He also complains of congestion and runny nose. His vitals were WNL. his labs are stable. We ordered COVID and influenza tests. COVID came out to be positive, we will continue monitoring and managing. ROS: Constitutional: Complains of low-grade fever, cough and chills. HEENT: Denies changes in vision and hearing. Respiratory: Complains of cough, nasal congestion Cardiovascular: Denies chest discomfort or palpitations GI: Denies abdominal pain, nausea, vomiting and diarrhea. : Denies dysuria and urinary frequency. Musculoskeletal: Chronically increased muscle tone in bilateral lower limb, incoordination Skin: Denies rash and pruritus. Neurological: Denies dizziness, headache, vision or hearing problems Objective vital signs Vital Sign Date Time Temp Pulse Resp B/P (MAP) Pulse Ox O2 Delivery O2 Flow Rate FiO2 06/01/25 13:00 99.1 93 17 123/78 (93) 97 99.1 05/31/25 20:00 Room Air* 0 21 Total Intake and Output 05/31/25 05/31/25 06/01/25 15:00 23:00 07:00 Intake Total 700 ml 300 ml Output Total 400 ml 325 ml Balance 300 ml -25 ml medications Current Medications Medications Dose Ordered Sig/Gia Route Start Time Stop Time Status Last Admin Dose Admin Acetaminophen/ Hydrocodone Bitart 1 tab Q4HP PRN PO 05/27/25 21:15 05/30/25 08:01 1 TAB Acetaminophen 650 mg Q6HP PRN PO 05/27/25 21:15 06/01/25 04:39 650 MG Empaglifozin 10 mg DAILY PO 05/28/25 10:00 05/31/25 09:30 10 MG Lisinopril 5 mg DAILY PO 05/28/25 10:00 05/31/25 09:30 5 MG Patient Own Medication 1 tab DAILY PO 05/28/25 10:00 Folic Acid 1 mg DAILY PO 05/28/25 10:00 06/01/25 09:31 1 MG Spironolactone 25 mg DAILY@0400 PO 05/28/25 04:00 06/01/25 04:40 25 MG Carvedilol 6.25 mg BID@0400,1600 PO 05/28/25 04:00 06/01/25 04:40 6.25 MG Ergocalciferol 50,000 unit Q7D PO 05/28/25 05:30 05/28/25 05:55 50,000 UNIT Dexamethasone 6 mg DAILY PO 06/02/25 10:00 UNV Examination General: Patient alert and oriented in person, place and time. Patient following commands. HEENT: Normocephalic, atraumatic, moist mucous membranes Respiratory/pulmonary: Clear lungs bilaterally, no associated crackles or wheezes. Cardiovascular: Normal heart sounds S1 and S2 with no associated murmurs Abdomen: Abdomen nondistended, there is no pain to palpation in any of the abdominal quadrants, no palpable masses. Genitourinary: Incision site dressing dry. Mild tenderness on palpation. Extremities: Reduced power in bilateral lower limbs, bilateral upper limbs. Skin: No rashes or pruritus, there is no sacral edema present at this time. Neurological: Intact cranial nerves with no focal neurologic deficits laboratory and microbiology Laboratory Tests 06/01/25 05:47 Test 06/01/25 05:47 Range/Units Serum Glucose 82 74-106 mg/dL Microbiology Date/Time Source Procedure Growth Status 05/31/25 13:05 Blood Blood Culture - Preliminary NO GROWTH AFTER 24 HOURS OF INCUBATION. Resulted Problem List/Assessment/Plan Problem List/Assessment/Plan #Acute hypoxic respiratory failure, likely due to COVID-19 -COVID-19 is positive -Decadron 6 mg p.o. daily -Remdesivir per pharmacy -Oxygen through nasal cannula #Right Testicular mass, possibly malignant #S/p Right radical orchiectomy 05/29/2025 -Testicular ultrasound: Complex appearing lesion/mass in the right testicle measuring 5.6 x 5.1 cm that is demonstrating internal vascularity, highly concerning for right testicular mass/neoplasm. - Abdominal/Pelvis CT: Moderate right hydrocele with 4.8 x 3.4 x 5.4 cm heterogeneous lesion within the right scrotal sac concerning for mass. - LDH: 425 #Simple right left cyst -Abdominal/Pelvis CT: 1.5 cm left renal hypodense lesion which does not measure as simple fluid. -Renal ultrasound: Simple 1.5 cm cyst at the superior pole of the left kidney corresponding to the lesion in question on recent CT. #Sigmoid diverticulosis without diverticulitis #Chronic HFmrEF, not exacerbated -Continue home medications #Hypertension -Continue home medications #History of ischemic cardiomyopathy -AICD placement in 2017 #History of Muscular Dystrophy Goals of care discussed with patient at bedside for more than 25 minute Full code Plan discussed with Dr. Luis Enrique Plan discussed with: Patient Dietary Evaluation Review Comments: 1) Add cardiac restriction to diet 2) Encourage optimal PO intake 3) Follow-up with gastroenterology, cardiology, and urology 4) Continue to monitor I&O, labs, and skin integrity Expected Outcomes/Goals: 1) appetite and labs to improve 2) f/u in 3-5 days Date of Service: Jun 01, 2025 Billing Provider: BRYON FERNANDES MD Common Visit Codes: [id number] INP/OBS CARE(HIGH) YOLIE GONZALEZ RESIDENT Jun 01, 2025 15:08 BRYON FERNANDES MD Jun 04, 2025 13:36
[2025-06-01] MEDS: REMDESIVIR 200mg in NS 210mL LOADING DOSE ADULT IV ONE (17:52)
[2025-06-01 21:00] VITALS: BP 108/68; PULSE 95; RESP 18; TEMP 99.4; O2SAT 94
[2025-06-02] VITALS (7 sets, daily range): BP systolic 105–122; BP diastolic 76–95; PULSE 67–89; RESP 16–19; TEMP 97.7–98.4; O2SAT 93–97
[2025-06-02 06:47] LABS: Albumin 4.2 g/dL (3.2-4.8); Alkaline Phosphatase 71 U/L (46-116); Anion Gap 11 (5-15); BUN/Creatinine Ratio 57.6 (10.0-20.0); Bilirubin, Total 0.5 mg/dL (0.2-1.0); Blood Urea Nitrogen 19 mg/dL (9-23); Calcium 9.1 mg/dL (8.7-10.4); Carbon Dioxide 22 mmol/L (20-31); Chloride 102 mmol/L (98-107); Hematocrit 39.4 % (41.0-53.0); Hemoglobin 14.2 g/dL (13.5-17.5); Mean Corpuscular Hemoglobin 29.8 pg (28.0-32.0); Mean Corpuscular Volume 82.6 fL (80.0-100.0); Nucleated Red Blood Cells % 0.3 %; Total Protein 6.5 g/dL (5.7-8.2)
[2025-06-02 06:55] LABS: Alanine Aminotransferase 47 U/L (7-40); Glucose 125 mg/dL (74-106); Potassium 3.5 mmol/L (3.5-5.1); Sodium 135 mmol/L (136-145)
[2025-06-02] MEDS: IOHEXOL 300 MG/ML 100ML BOTTLE IJ ONE (07:33)
[2025-06-02] MEDS: ACETAMINOPHEN IV 100 ML IV ONE (07:33)
[2025-06-02] MEDS: LIDOCAINE W/ EPINEPHRINE 1% 20ML VIAL ONE (07:33)
[2025-06-02] MEDS ORDERED: DOCUSATE SOD 100 MG CAP PO PRN (16:45)
[2025-06-02] MEDS: REMDESIVIR 100mg in NS 230mL (3 DAY REGIMEN) IV SCH (16:51)
[2025-06-02] MEDS: DOCUSATE SOD 100 MG CAP PO ONE (16:51)
--- NOTE | 2025-06-02 17:59 | DVHPNRES ---
Progress Note Date Seen: Jun 02, 2025 Resident Creating Document: YOLIE GONZALEZ RESIDENT Medical Necessity Reason Pt with a Central, PICC or Fol: No Subjective Review of Systems Michele Monsalve is a 59-year-old male with prior medical history of muscular dystrophy diagnosed in 2017, wheel chair bound, HFmrEF, ischemic cardiomyopathy status post AICD placement in 2017, and hypertension who presented to the ED with chief complaint of scrotal swelling. He complained of intermittent episodes of testicular pain and swelling for the past 1 and half year. He was being managed by his primary care physician with antibiotic treatment, the last episode being in March 2025. 4 days before the admission, he began to notice scrotal swelling again, primarily affecting the right testicle, which was accompanied by a pressure like heavy sensation in his scrotum. He reports that his right testicle has become indurated. Accompanied by fatigue and shortness of breath, he was unsure if it is attributable to this current episode or his underlying muscular dystrophy. On evaluation in the ER, initial labs showed WBCs 5.6, hemoglobin 15.7, ESR 8, sodium 138, potassium 4.3, creatinine 0.28, BUN 12, and troponins 64. 12 Lead EKG performed in ER showed NSR with RBBB without ST alterations. Chest x-ray revealed no acute cardiopulmonary disease. Testicular ultrasound shows right testicle measuring 5.6 x 5.1, with mass/neoplasm versus complex lesion. Abdominal/pelvic CT significant for moderate right hydrocele with 4.8 x 3.4 x 5.4 cm heterogeneous lesion in the right scrotal sac concerning for mass, 0.5 cm left renal hypodensities as wishes not measure simple fluid, cm hypodense hepatic lesions noted that are too small to categorize. Follow-up renal ultrasound showed renal lesion to be a simple cyst. Follow up labs significant for LDH 429, normal beta HCG. He underwent radical right orchiectomy on 05/29/2025, specimen was sent for biopsy. Overnight, patient had a febrile peak of 100.3 F, resolved with acetaminophen. Follow up CBC was WNL and cultures negative. He complained of flu-like symptoms, including low-grade fever, chills, cough, congestion and runny nose. COVID came out to be positive, started on remdesivir. He was examined at bedside today. His vitals were WNL. LFTs are stable. No new complains, we will continue monitoring and managing. ROS: Constitutional: Low-grade fever, cough and chills, resolved. HEENT: Denies changes in vision and hearing. Respiratory: Complains of cough, nasal congestion Cardiovascular: Denies chest discomfort or palpitations GI: Denies abdominal pain, nausea, vomiting and diarrhea. : Mild discomfort at the site of orchidectomy incision. Musculoskeletal: Chronically increased muscle tone in bilateral lower limb, incoordination Skin: Denies rash and pruritus. Neurological: Denies dizziness, headache, vision or hearing problems Objective vital signs Vital Sign Date Time Temp Pulse Resp B/P (MAP) Pulse Ox O2 Delivery O2 Flow Rate FiO2 06/02/25 16:52 72 120/83 06/02/25 16:30 98.2 17 93 98.2 06/01/25 20:00 Room Air* 0 21 Total Intake and Output 06/01/25 06/01/25 06/02/25 15:00 23:00 07:00 Intake Total 400 ml Output Total 450 ml Balance -50 ml medications Current Medications Medications Dose Ordered Sig/Gia Route Start Time Stop Time Status Last Admin Dose Admin Acetaminophen/ Hydrocodone Bitart 1 tab Q4HP PRN PO 05/27/25 21:15 05/30/25 08:01 1 TAB Acetaminophen 650 mg Q6HP PRN PO 05/27/25 21:15 06/02/25 00:44 650 MG Empaglifozin 10 mg DAILY PO 05/28/25 10:00 06/02/25 10:35 10 MG Lisinopril 5 mg DAILY PO 05/28/25 10:00 06/02/25 10:35 5 MG Patient Own Medication 1 tab DAILY PO 05/28/25 10:00 Folic Acid 1 mg DAILY PO 05/28/25 10:00 06/02/25 10:36 1 MG Spironolactone 25 mg DAILY@0400 PO 05/28/25 04:00 06/02/25 03:39 25 MG Carvedilol 6.25 mg BID@0400,1600 PO 05/28/25 04:00 06/02/25 16:52 6.25 MG Ergocalciferol 50,000 unit Q7D PO 05/28/25 05:30 05/28/25 05:55 50,000 UNIT Dexamethasone 6 mg DAILY PO 06/02/25 10:00 06/02/25 10:35 6 MG Remdesivir 0 ml @ 0 mls/hr PER PHARMACY IV 06/01/25 15:00 06/03/25 15:01 Remdesivir 100 mg/ Sodium Chloride 250 ml @ 250 mls/hr DAILY@1500 IV 06/02/25 15:00 06/03/25 15:59 06/02/25 16:51 250 MLS/HR Docusate Sodium 100 mg BIDPRN PRN PO 06/02/25 16:45 Examination General: Patient alert and oriented in person, place and time. Patient following commands. HEENT: Normocephalic, atraumatic, moist mucous membranes Respiratory/pulmonary: Clear lungs bilaterally, no associated crackles or wheezes. Cardiovascular: Normal heart sounds S1 and S2 with no associated murmurs Abdomen: Abdomen nondistended, there is no pain to palpation in any of the abdominal quadrants, no palpable masses. Genitourinary: Incision site dressing dry. Mild tenderness on palpation. Extremities: Reduced power in bilateral lower limbs, bilateral upper limbs. Skin: No rashes or pruritus, there is no sacral edema present at this time. Neurological: Intact cranial nerves with no focal neurologic deficits laboratory and microbiology Laboratory Tests 06/02/25 05:21 Test 06/02/25 05:21 Range/Units Serum Glucose 125 H 74-106 mg/dL Microbiology Date/Time Source Procedure Growth Status 05/31/25 13:05 Blood Blood Culture - Preliminary NO GROWTH AFTER 48 HOURS OF INCUBATION. Resulted Problem List/Assessment/Plan Problem List/Assessment/Plan #Acute hypoxic respiratory failure, likely due to COVID-19 -COVID-19 is positive -Decadron 6 mg p.o. daily -Remdesivir per pharmacy -Oxygen through nasal cannula - Possible discharge with stable condition tomorrow #Right Testicular mass, possibly malignant #S/p Right radical orchiectomy 05/29/2025 -Testicular ultrasound: Complex appearing lesion/mass in the right testicle measuring 5.6 x 5.1 cm that is demonstrating internal vascularity, highly concerning for right testicular mass/neoplasm. - Abdominal/Pelvis CT: Moderate right hydrocele with 4.8 x 3.4 x 5.4 cm heterogeneous lesion within the right scrotal sac concerning for mass. - LDH: 425 #Simple right left cyst -Abdominal/Pelvis CT: 1.5 cm left renal hypodense lesion which does not measure as simple fluid. -Renal ultrasound: Simple 1.5 cm cyst at the superior pole of the left kidney corresponding to the lesion in question on recent CT. #Sigmoid diverticulosis without diverticulitis #Chronic HFmrEF, not exacerbated -Continue home medications #Hypertension -Continue home medications #History of ischemic cardiomyopathy -AICD placement in 2017 #History of Muscular Dystrophy Goals of care discussed with patient at bedside for more than 25 minute Full code Plan discussed with Dr. Fernandes Plan discussed with: Patient Dietary Evaluation Review Comments: 1) Add cardiac restriction to diet 2) Encourage optimal PO intake 3) Follow-up with gastroenterology, cardiology, and urology 4) Continue to monitor I&O, labs, and skin integrity Expected Outcomes/Goals: 1) appetite and labs to improve 2) f/u in 3-5 days Date of Service: Jun 02, 2025 Billing Provider: BRYON FERNANDES MD Common Visit Codes: [id number] INP/OBS CARE(HIGH) YOLIE GONZALEZ RESIDENT Jun 02, 2025 17:59 BRYON FERNANDES MD Jun 04, 2025 13:43
[2025-06-03 05:00] VITALS: BP 100/61; PULSE 70; RESP 18; TEMP 96.1; O2SAT 97
--- NOTE | 2025-06-03 06:14 | DVHPNRES ---
Progress Note Medical Necessity Reason Pt with a Central, PICC or Fol: No Objective vital signs Vital Sign Date Time Temp Pulse Resp B/P (MAP) Pulse Ox O2 Delivery O2 Flow Rate FiO2 06/03/25 05:00 96.1 70 18 100/61 (74) 97 96.1 06/02/25 20:00 Room Air* 0 21 Total Intake and Output 06/02/25 06/02/25 06/03/25 15:00 23:00 07:00 Intake Total 560 ml 550 ml Output Total 600 ml 500 ml Balance -40 ml 50 ml medications Current Medications Medications Dose Ordered Sig/Gia Route Start Time Stop Time Status Last Admin Dose Admin Acetaminophen/ Hydrocodone Bitart 1 tab Q4HP PRN PO 05/27/25 21:15 05/30/25 08:01 1 TAB Acetaminophen 650 mg Q6HP PRN PO 05/27/25 21:15 06/02/25 22:01 650 MG Empaglifozin 10 mg DAILY PO 05/28/25 10:00 06/02/25 10:35 10 MG Lisinopril 5 mg DAILY PO 05/28/25 10:00 06/02/25 10:35 5 MG Patient Own Medication 1 tab DAILY PO 05/28/25 10:00 Folic Acid 1 mg DAILY PO 05/28/25 10:00 06/02/25 10:36 1 MG Spironolactone 25 mg DAILY@0400 PO 05/28/25 04:00 06/03/25 03:01 25 MG Carvedilol 6.25 mg BID@0400,1600 PO 05/28/25 04:00 06/03/25 03:02 6.25 MG Ergocalciferol 50,000 unit Q7D PO 05/28/25 05:30 05/28/25 05:55 50,000 UNIT Dexamethasone 6 mg DAILY PO 06/02/25 10:00 06/02/25 10:35 6 MG Remdesivir 0 ml @ 0 mls/hr PER PHARMACY IV 06/01/25 15:00 06/03/25 15:01 Remdesivir 100 mg/ Sodium Chloride 250 ml @ 250 mls/hr DAILY@1500 IV 06/02/25 15:00 06/03/25 15:59 06/02/25 16:51 250 MLS/HR Docusate Sodium 100 mg BIDPRN PRN PO 06/02/25 16:45 laboratory and microbiology Laboratory Tests 06/02/25 05:21 Test 06/02/25 05:21 Range/Units Serum Glucose 125 H 74-106 mg/dL Microbiology Date/Time Source Procedure Growth Status 05/31/25 13:05 Blood Blood Culture - Preliminary NO GROWTH AFTER 48 HOURS OF INCUBATION. Resulted Problem List/Assessment/Plan Problem List/Assessment/Plan #Acute hypoxic respiratory failure, likely due to COVID-19 Leukopenia -COVID-19 is positive -Decadron 6 mg p.o. daily -Remdesivir per pharmacy -Oxygen through nasal cannula - Possible discharge with stable condition tomorrow #Right Testicular mass, possibly malignant #S/p Right radical orchiectomy 05/29/2025 -Testicular ultrasound: Complex appearing lesion/mass in the right testicle measuring 5.6 x 5.1 cm that is demonstrating internal vascularity, highly concerning for right testicular mass/neoplasm. - Abdominal/Pelvis CT: Moderate right hydrocele with 4.8 x 3.4 x 5.4 cm heterogeneous lesion within the right scrotal sac concerning for mass. - LDH: 425 #Simple right left cyst -Abdominal/Pelvis CT: 1.5 cm left renal hypodense lesion which does not measure as simple fluid. -Renal ultrasound: Simple 1.5 cm cyst at the superior pole of the left kidney corresponding to the lesion in question on recent CT. #Sigmoid diverticulosis without diverticulitis #Chronic HFmrEF, not exacerbated -Continue home medications #Hypertension -Continue home medications #History of ischemic cardiomyopathy -AICD placement in 2017 #History of Muscular Dystrophy Goals of care discussed with patient at bedside for more than 25 minute Full code Plan discussed with Dr. Dudley Dietary Evaluation Review Comments: 1) Add cardiac restriction to diet 2) Encourage optimal PO intake 3) Follow-up with gastroenterology, cardiology, and urology 4) Continue to monitor I&O, labs, and skin integrity Expected Outcomes/Goals: 1) appetite and labs to improve 2) f/u in 3-5 days YOLIE GONZALEZ RESIDENT Jun 03, 2025 06:14
[2025-06-03 08:46] LABS: Albumin 4.4 g/dL (3.2-4.8); Alkaline Phosphatase 68 U/L (46-116); Anion Gap 8 (5-15); BUN/Creatinine Ratio 65.5 (10.0-20.0); Bilirubin, Total 0.5 mg/dL (0.2-1.0); Blood Urea Nitrogen 19 mg/dL (9-23); Calcium 9.3 mg/dL (8.7-10.4); Carbon Dioxide 22 mmol/L (20-31); Chloride 105 mmol/L (98-107); Potassium 3.9 mmol/L (3.5-5.1); Total Protein 6.6 g/dL (5.7-8.2)
[2025-06-03 08:47] LABS: Alanine Aminotransferase 48 U/L (7-40); Glucose 118 mg/dL (74-106); Sodium 135 mmol/L (136-145)
[2025-06-03 10:19] VITALS: BP 128/74; PULSE 75; RESP 17; TEMP 97.8; O2SAT 97
--- NOTE | 2025-06-03 10:57 | DVHDSRES ---
Discharge Summary Date of Admission Resident Creating Document: YOLIE GONZALEZ RESIDENT May 27, 2025 at 21:08 Date of Discharge: Jun 03, 2025 Admitting Diagnosis Right Scrotal swelling likely scrotal mass/neoplasm, rule out orchitis/spermatocele/hydrocele Wounds: No large wounds Labs/Diagnostic Data: Laboratory Results Test 06/03/25 07:22 06/02/25 05:21 06/01/25 11:40 06/01/25 01:06 Sodium Level 135 mmol/L (136-145) Potassium Level 3.9 mmol/L (3.5-5.1) Chloride Level 105 mmol/L (98-107) Carbon Dioxide Level 22 mmol/L (20-31) Anion Gap 8 (5-15) Blood Urea Nitrogen 19 mg/dL (9-23) Creatinine 0.29 mg/dL (0.700-1.30) Glomerular Filtration Rate Calc 139 mL/min (>90) BUN/Creatinine Ratio 65.5 (10.0-20.0) Serum Glucose 118 mg/dL (74-106) Calcium Level 9.3 mg/dL (8.7-10.4) Total Bilirubin 0.5 mg/dL (0.2-1.0) Aspartate Amino Transferase (AST) 34 U/L (13-40) Alanine Aminotransferase (ALT) 48 U/L (7-40) Alkaline Phosphatase 68 U/L (46-116) Total Protein 6.6 g/dL (5.7-8.2) Albumin 4.4 g/dL (3.2-4.8) White Blood Count 2.1 10^3/uL (4.4-10.8) Red Blood Count 4.77 10^6/uL (4.5-5.90) Hemoglobin 14.2 g/dL (13.5-17.5) Hematocrit 39.4 % (41.0-53.0) Mean Corpuscular Volume 82.6 fL (80.0-100.0) Mean Corpuscular Hemoglobin 29.8 pg (28.0-32.0) Mean Corpuscular Hemoglobin Concent 36.0 g/dL (32.0-36.0) Red Cell Distribution Width 13.0 % (11.8-14.3) Platelet Count 118 10^3/uL (140-450) Mean Platelet Volume 8.3 fL (6.9-10.8) Neutrophils (%) (Auto) 72.0 % (37.0-80.0) Lymphocytes (%) (Auto) 18.9 % (10.0-50.0) Monocytes (%) (Auto) 9.1 % (0.0-12.0) Eosinophils (%) (Auto) 0.0 % (0.0-7.0) Basophils (%) (Auto) 0.0 % (0.0-2.0) Neutrophils # (Auto) 1.5 10 ^3/uL (1.6-8.6) Lymphocytes # (Auto) 0.4 10 ^3/uL (0.4-5.4) Monocytes # (Auto) 0.2 10 ^3/uL (0-1.3) Eosinophils # (Auto) 0 10 ^3/uL (0-0.8) Basophils # (Auto) 0 10 ^3/uL (0-0.2) Nucleated Red Blood Cells 0.3 % Influenza Type A Antigen Negative (Negative) Influenza Type B Antigen Negative (Negative) SARS-CoV-2 Antigen (Rapid) Positive (NEGATIVE) POC Glucose 89 mg/dl (70-106) Test 05/31/25 14:20 05/31/25 13:00 05/28/25 15:10 05/28/25 10:39 Lactic Acid Level 1.7 mmol/L (0.4-2.0) Differential Total Cells Counted 100.0 (100) Neutrophils % (Manual) 53 (37.0-80.0) Band Neutrophils % (Manual) 9 Lymphocytes % (Manual) 19 (10.0-50.0) Monocytes % (Manual) 18 (0-12) Eosinophils % (Manual) 1 (0-7) Basophils % (Manual) 0 (0.0-2.0) Metamyelocytes % (manual) 0 Myelocytes % (Manual) 0 Promyelocytes % (Manual) 0 Blast Cells % (Manual) 0 Reactive Lymphocytes 0 Platelet Estimate Decreased Red Blood Cell Morphology Normal Free Prostate Specific Antigen 0.08 ng/mL (N/A) Percent Free Prostate Specific Ag 40.0 % (.) Prostate Specific Antigen Total 0.2 ng/mL (0.0-4.0) Prothrombin Time 10.5 sec (9.3-11.8) Prothrombin Time INR 0.99 (0.9-1.15) Test 05/28/25 00:24 05/27/25 23:50 05/27/25 21:26 05/27/25 18:05 Troponin I High Sensitivity 69 ng/L (</=54) Urine Color Light-yellow (Yellow) Urine Clarity Clear (Clear) Urine pH 6.0 (5.0-9.0) Urine Specific [place] > 1.050 (1.001-1.035) Urine Protein Trace (Negative) Urine Ketones Negative (Negative) Urine Blood Negative /uL (Negative) Urine Nitrite Negative (Negative) Urine Bilirubin Negative (Negative) Urine Urobilinogen Normal mg/dL (Negative) Urine Leukocyte Esterase Negative /uL (Negative) Urine RBC 2 /hpf (0 - 3) Urine Microscopic WBC 1 /HPF (0-3) Urine Squamous Epithelial Cells None seen /hpf (<5) Urine Bacteria None seen /hpf (None Seen) Urine Mucus Few (None Seen) Urine Glucose Normal mg/dL (Normal) Urine Opiates Screen Neg (NEGATIVE) Urine Fentanyl Screen Neg (NEGATIVE) Urine Barbiturates Screen Neg (NEGATIVE) Urine Phencyclidine Screen Neg (NEGATIVE) Urine Amphetamines Screen Neg (NEGATIVE) Urine Benzodiazepines Screen Neg (NEGATIVE) Urine Cocaine Screen Neg (NEGATIVE) Urine Cannabinoids Screen Neg (NEGATIVE) Hemoglobin A1c 5.0 % A1C (<5.7) Lactate Dehydrogenase 429 U/L (120-246) Tumor Marker Alpha Fetoprotein 1.8 ng/mL (0.0-8.4) Vitamin B12 Level 570 pg/mL (211-911) Vitamin D 25-Hydroxy 26.1 ng/mL (30.0-100) Folic Acid 27.60 ng/mL (>5.38) Thyroid Stimulating Hormone (TSH) 1.30 uIU/mL (0.55-4.78) Beta HCG, Quantitative 1.2 mIU/mL (0-2) Erythrocyte Sedimentation Rate 8 mm/hr (0-20) Magnesium Level 2.2 mg/dL (1.6-2.6) C-Reactive Protein High Sensitivity 0.41 mg/dL (<1.0) B-Type Natriuretic Peptide 35.49 pg/mL (0-100) Other Laboratory Tests 06/03/25 07:22 06/02/25 05:21 Brief Hx & Hospital Course: Mr. Morrell 59-year-old male with a history of HFmrEF, ischemic cardiomyopathy (post-AICD), hypertension, and muscular dystrophy (wheelchair-bound since 2016) presented with worsening scrotal pain and swelling, ongoing for several months but acutely worsened over the past 34 days despite multiple courses of antibiotics. He also reported fatigue, intermittent palpitations, exertional dyspnea, and dizziness, but denied chest pain, gastrointestinal, or urinary symptoms. Lab results showed elevated troponin I and LDH, and imaging revealed a complex vascular lesion in the right testicle concerning for neoplasm, moderate right hydrocele, and additional findings including left renal and hepatic hypodense lesions and sigmoid diverticulosis without diverticulitis Right testicular mass s/p Right radical orchiectomy 05/29. Acute hypoxic respiratory failure, likely due to COVID-19 s/p conservative management back to room air stable. Examination General: Patient alert and oriented in person, place and time. Patient following commands. HEENT: Normocephalic, atraumatic, moist mucous membranes Respiratory/pulmonary: Clear lungs bilaterally, no associated crackles or wheezes. Cardiovascular: Normal heart sounds S1 and S2 with no associated murmurs Abdomen: Abdomen nondistended, there is no pain to palpation in any of the abdominal quadrants, no palpable masses. Genitourinary: Incision site dressing dry. Mild tenderness on palpation. Extremities: Reduced power in bilateral lower limbs, bilateral upper limbs. Skin: No rashes or pruritus, there is no sacral edema present at this time. Neurological: Intact cranial nerves with no focal neurologic deficits Medical conditions treated #Acute hypoxic respiratory failure, likely due to COVID-19 #Leukopenia, bicytopenia likely due to covid, hemodynamically stable. 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 Goals of care and discharge care plan discussed with patient for 37 minutes. Discharged home with resumed home hospice. Plan discussed with Dr. Dudley Consults/Reason for consult Cardiology was consulted. An echocardiogram revealed moderately dilated left ventricle, moderate degree of global LV hypokinesis, LVEF 25%, valves grossly normal. Serial trop I within normal limit, EKGs shows RBBB with no significant ST or T-wave changes. Revised cardiac risk index (Raul criteria):1. He was cleared for radical orchidectomy. Urology was consulted. He underwent right radical orchiectomy. Operations or Procedures OPERATIVE REPORT Pre-op. Diagnosis: Testicular Mass- RIGHT HFmrEF, ischemic cardiomyopathy, status post AICD, hypertension, muscular dystrophy BPH Stranguria Post-op. Diagnosis: Same as pre-op diagnosis Operation:Radical Orchiectomy - RIGHT Agrawal placement Anesthesia:IV Sedation and Local Indications: Options were reviewed with patient including conservative management vs right radical orchiectomy. Risks and benefits of the surgery were reviewed with patient including infection, bleeding, hematoma formation, chronic pain, wound dehiscence, injury to nearby structures and risk of anesthesia. Given these risks, patient agreed to proceed with the surgery and signed the consent form. Details of Procedure: After obtaining the consent, patient was taken to OR suite and IV anesthesia was administered in supine position. Area of genitalia and lower abdomen are widely prepped and draped in usual sterile fashion. 16F Agrawal catheter was placed due to history of stranguria anticipating postoperative urinary retention. Local injection of lidocaine 1% with epinephrine was performed along the right inguinal incision site. Right inguinal incision was made along the line of skin crease with scalpel and subsequent tissues were taken down to open the Dale's fascia. The external oblique fascia was opened with care to avoid injury to the nerve. The spermatic was identified and brought out from the opening with care taken not to rupture the testicle. The Gubernacular attachement to the testicle was resected and the entire testicle was taken out and wrapped up in gauze. The Spermatic cord was clamped proximally and ligated and transsected. The right testicle with partial cord was removed. The spermatic cord stump was doubly ligated with 2-0 Silk suture and placed underneath the external oblique fascia, which was closed with Vicryl suture. Two layer closure of the incision was carried out with regulo used for the subcutaneous closure of the skin. Lidocaine local anesthetic was applied to the skin. Patient was awoken and taken to the RR in stable condition. Specimens:Right Testicle with partial spermatic cord Complications:None Findings:EBL: Minimal Notes:Agrawal removal in one week with cystoscopy TBA if unable to pass voiding trial Diagnosis: Visit Code: Procedure Codes:82276 EXPLORATION FOR TESTIS. OPERATIVE REPORT Pre-op. Diagnosis: Testicular Mass- RIGHT HFmrEF, ischemic cardiomyopathy, status post AICD, hypertension, muscular dystrophy BPH Stranguria Post-op. Diagnosis: Same as pre-op diagnosis Operation: Radical Orchiectomy - RIGHT Agrawal placement Anesthesia:IV Sedation and Local Indications: Options were reviewed with patient including conservative management vs right radical orchiectomy. Risks and benefits of the surgery were reviewed with patient including infection, bleeding, hematoma formation, chronic pain, wound dehiscence, injury to nearby structures and risk of anesthesia. Given these risks, patient agreed to proceed with the surgery and signed the consent form. Details of Procedure: After obtaining the consent, patient was taken to OR suite and IV anesthesia was administered in supine position. Area of genitalia and lower abdomen are widely prepped and draped in usual sterile fashion. 16F Agrawal catheter was placed due to history of stranguria anticipating postoperative urinary retention. Local injection of lidocaine 1% with epinephrine was performed along the right inguinal incision site. Right inguinal incision was made along the line of skin crease with scalpel and subsequent tissues were taken down to open the Dale's fascia. The external oblique fascia was opened with care to avoid injury to the nerve. The spermatic was identified and brought out from the opening with care taken not to rupture the testicle. The Gubernacular attachement to the testicle was resected and the entire testicle was taken out and wrapped up in gauze. The Spermatic cord was clamped proximally and ligated and transsected. The right testicle with partial cord was removed. The spermatic cord stump was doubly ligated with 2-0 Silk suture and placed underneath the external oblique fascia, which was closed with Vicryl suture. Two layer closure of the incision was carried out with regulo used for the subcutaneous closure of the skin. Lidocaine local anesthetic was applied to the skin. Patient was awoken and taken to the RR in stable condition. Specimens:Right Testicle with partial spermatic cord Complications:None Findings:EBL: Minimal Notes:Agrawal removal in one week with cystoscopy TBA if unable to pass voiding trial ----- RENAL ULTRASOUND REASON FOR EXAM: RULE OUT RENAL TUMOR/METASTASIS. Hypodense lesion seen in the left kidney on recent CT. COMPARISON: CT abdomen/ pelvis 05/27/2025. TECHNIQUE: Real-time sector scans in multiple planes were obtained over the kidneys, ureters and bladder. FINDINGS: The right kidney measures 9.0 cm. The left kidney measures 12.3 cm. There is a 1.5 x 1.3 x 1.4 cm anechoic structure within the superior pole of the left kidney demonstrating posterior acoustic enhancement consistent with a simple cyst. No solid mass is identified. There is no hydronephrosis. The urinary bladder is decompressed and is not well evaluated. The patient voided immediately prior to the exam. IMPRESSION: Simple 1.5 cm cyst at the superior pole of the left kidney corresponding to the lesion in question on the recent CT. No dedicated follow-up for this simple cyst is recommended. --- CT CT AB PEL WITH IV CON ONLY History: right testicular complex lesion on US Comparison Study: Ultrasound testicular sonogram 05/27/2025 TECHNIQUE: Multidetector CT of the abdomen and pelvis with IV contrast. Axial, coronal and sagittal multiplanar reformats were obtained from the axial data set by the technologist. Radiation Dose Information: CT Dose: CTDI volume is 19.41 mGy. Dose-length product is 1273.69 mGy*cm FINDINGS: Bibasilar atelectasis. Partially visualized heart is unremarkable. Subcentimeter hypodense hepatic lesions that are too small to characterize. Otherwise, liver, spleen, gallbladder, pancreas and adrenal glands are unremarkable. 1.5 cm left renal hypodense lesion measuring up to 30 Hounsfield units. Otherwise, kidneys, ureters and decompressed urinary bladder unremarkable. Prostate measures 2.5 by 4.2 by 3.5 cm with Foci of calcification. Stomach is unremarkable. Small bowel loops unremarkable. Appendix is unremarkable. Small to moderate amount of fecal material within the colon. Sigmoid diverticulosis without diverticulitis. No evidence of intraperitoneal free air or free fluid. No evidence of aortic aneurysm or dissection. [id number] atherosclerotic calcification of the aorta and bilateral iliacs. No significant lymphadenopathy. Moderate fat containing left inguinal hernia. Moderate right hydrocele with heterogeneous 4.8 x 3.4 5.4 cm lesion within the right scrotal sac concerning for mass. Tortuosity of the right pampiniform plexus. Severe atrophy of lower extremity pelvic and paraspinal muscles. No destructive osseous lesions are noted. IMPRESSION: Moderate right hydrocele with 4.8 x 3.4 x 5.4 cm heterogeneous lesion within the right scrotal sac concerning for mass. Sigmoid diverticulosis without diverticulitis. 1.5 cm left renal hypodense lesion which does not measure as simple fluid. Ultrasound is recommended for further evaluation. Subcentimeter hypodense hepatic lesions are noted that are too small to characterize. --- Real-time ultrasound images through the scrotum. Comparison: US TESTICULAR ULTRASOUND on DOS: 04/04/25 Findings: Right testicle measures 5.6 x 4.2 x 3.5 cm. Heterogeneous appearing lesion within the right testicle that is overall hypoechoic measuring 5.6 x 5.1 cm demonstrating internal vascularity. This appears to be extending through the posterior aspect of the testicle into the scrotal wall. Some calcifications within lesion. There is moderate right hydrocele. Left testicle measures 3.2 x 1.7 x 3.8 cm. It has normal echogenicity and echotexture, with no focal solid or cystic mass. There is normal flow on color Doppler, with normal waveforms. The left epididymal head measures 10 cm,. Left scrotal james/ scrotolith measuring 3 mm. Left epididymal cyst measuring 6 mm.m left varicocele that measures 3 mm in diameter. Impression: Complex appearing lesion/ mass within the right testicle measuring 5.6 x 5.1 cm that is demonstrating internal vascularity, highly concerning for right testicular mass / neoplasm. Recommend urology consultation for further evaluation. Moderate right hydrocele. Left scrotal james measuring 3 mm. Left varicocele. Critical Result: Possible right testicular mass/neoplasm versus other complex lesion --- CHEST RADIOGRAPH Indication: SOB Technique: Single frontal view of the chest was obtained Comparison: XY CHEST PORTABLE on DOS: 07/19/24, XY CHEST PORTABLE on DOS: 06/23/23, XY CHEST PORTABLE on DOS: 02/10/23 FINDINGS: Lines and Tubes: None. Left-sided approach biventricular lead AICD with intact leads. Lungs: No focal consolidation. Pleura: No effusion. No pneumothorax. Cardiomediastinal contours: Unremarkable Bones: No acute osseous abnormality. IMPRESSION: No acute cardiopulmonary disease. --- Condition at Discharge: Fair Final Diagnosis/Problems List Acute hypoxic respiratory failure, likely due to COVID-19 Right Testicular mass, possibly malignant S/p Right radical orchiectomy 05/29/2025 without postsurgical complication Simple left renal cyst #Sigmoid diverticulosis without diverticulitis Chronic HFmrEF, not exacerbated Hypertension History of ischemic cardiomyopathy s/p D 2016 History of Muscular Dystrophy Discharge Disposition: Home Discharge Instruct/Medications Diet: Regular Diet comment: as tolerated Activity: No Restrictions, As Tolerated Follow Up/Referral: PCP follow up Surgery follow up Medications: as per EHR Care Plan: Follow with PCP in 1 week. Continue home medications. Scheduled Carvedilol (Carvedilol), 6.25 MG PO BID, (Reported) Cefdinir (Cefdinir), 300 MG PO BID Cephalexin Monohydrate (Cephalexin), 1 CAP PO QID, (Reported) Cholecalciferol (Vitamin D), 3,000 UNIT PO DAILY, (Reported) Empagliflozin (Jardiance), 10 MG PO DAILY Fenofibrate (Fenofibrate), 1 TAB PO DAILY, (Reported) Folic Acid (Folic Acid), 1 MG PO DAILY, (Reported) Hydrocodone-Acetaminophen (Hydrocodone Bitartrate/AC 10-325 mg), 1 TAB PO TID, (Reported) Lisinopril (Lisinopril), 1 TAB PO DAILY, (Reported) Metoprolol Succinate (Metoprolol Succinate Er), 50 TAB PO DAILY Spironolactone (Spironolactone), 1 TAB PO AM, (Reported) Discharge Statement: "Patient was advised to return to the ER or call 911 if any headaches, dizziness, shortness of breath, chest pain, abdominal pain, bleeding, fevers, or worsening of medical condition. Patient was counseled about treatment plan, medications, possible side effects, patientverbalized understanding. All questions were answered to the best of my ability. This discharge took greater then 30 minutes in planning, reviewing documentation, counseling the patient, and discussing with other team members." ASSESSMENT ASSESSMENT Assessment #Acute hypoxic respiratory failure, likely due to COVID-19 #Right Testicular mass, possibly malignant #S/p Right radical orchiectomy 05/29/2025 without postsurgical complication #Simple left renal cyst #Sigmoid diverticulosis without diverticulitis #Chronic HFmrEF, not exacerbated #Hypertension #History of ischemic cardiomyopathy s/p 2016 #History of Muscular Dystrophy Date of Service: Jun 03, 2025 Billing Provider: BRYON DUDLEY MD Common Visit Codes: 72268-PYZ/OBS DISCH DAY >30min RADHA FLANNERY RESIDENT Jun 03, 2025 10:57 YOLIE GONZALEZ RESIDENT Jun 03, 2025 13:12 BRYON DUDLEY MD Jun 04, 2025 14:03
[2025-06-03 13:09] VITALS: BP 112/77; PULSE 73; RESP 17; TEMP 97.6; O2SAT 98
[2025-06-03 13:12] VITALS: BP 112/77; PULSE 73; RESP 17; TEMP 97.6; O2SAT 98
== END 2025-06-03 16:45 | disposition hospice, home (50) | DRG 711 ==
LOC: ER 15:32 → OVERFLOW 21:08 → TELE-EAST 23:07 → TELE-CENTR 06-01 16:23 → CENTRAL 06-01 18:55
PROVIDERS: ADMIT Student in an Organized Health Care Education/Training Program; ATTEND Student in an Organized Health Care Education/Training Program
PROC: 0VT90ZZ Resection of Right Testis, Open Approach (ICD-10-PCS; principal; 2025-05-29 07:51)
DX: C62.91 Malignant neoplasm of right testis, unspecified whether descended or undescended (principal); J96.01 Acute respiratory failure with hypoxia; U07.1 COVID-19; I50.22 Chronic systolic (congestive) heart failure; K40.90 Unilateral inguinal hernia, without obstruction or gangrene, not specified as recurrent; Z51.5 Encounter for palliative care; I86.1 Scrotal varices; I25.5 Ischemic cardiomyopathy; G71.00 Muscular dystrophy, unspecified; I11.0 Hypertensive heart disease with heart failure; K76.9 Liver disease, unspecified; N40.0 Benign prostatic hyperplasia without lower urinary tract symptoms; N28.1 Cyst of kidney, acquired; Z88.8 Allergy status to other drugs, medicaments and biological substances; Z79.899 Other long term (current) drug therapy; Z79.84 Long term (current) use of oral hypoglycemic drugs; Z79.2 Long term (current) use of antibiotics; Z82.49 Family history of ischemic heart disease and other diseases of the circulatory system; Z99.3 Dependence on wheelchair; Z95.810 Presence of automatic (implantable) cardiac defibrillator; K57.30 Diverticulosis of large intestine without perforation or abscess without bleeding
CPT/HCPCS: 36415; 71045; 74177; 76775; 76870; 80048; 80053; 80307; 81001; 82105; 82306; 82607; 82746; 82962; 83036; 83605; 83615; 83735; 83880; 84154; 84443; 84484; 84702; 85007; 85025; 85027; 85610; 85652; 86141; 87040; 87426; 87804; 93005; 93306; G0378; J0131; J2250; J2405; J2704

== ENCOUNTER 2025-06-22 20:50 | Inpatient (IN) | payer OTHER, MEDICARE, MEDICAID ==
[~2025-06-22] VITALS: Ht 180.3 cm; Wt 84.0 kg
[2025-06-22 21:30] VITALS: O2SAT 99
--- NOTE | 2025-06-22 21:38 | DVH ---
CLINICAL HISTORY: SOB TECHNIQUE: Single view of the chest was obtained. COMPARISON: XY CHEST PORTABLE on DOS: 05/27/25, CT CT ANGIO CHEST CONTRAST on DOS: 07/19/24, XY CHEST P ORTABLE on DOS: 07/19/24, XY CHEST PORTABLE on DOS: 06/23/23, XY CHEST PORTABLE on DOS: 02/10/23 FINDINGS: There is a dual lead left chest wall pacing device. The heart size and pulmonary vasculature are norm al. The lungs are clear. IMPRESSION: NO ACUTE CARDIOPULMONARY PROCESS.
[2025-06-22 21:43] LABS: Hematocrit 45.4 % (41.0-53.0); Hemoglobin 15.9 g/dL (13.5-17.5); Mean Corpuscular Hemoglobin 29.8 pg (28.0-32.0); Mean Corpuscular Volume 85.2 fL (80.0-100.0); Nucleated Red Blood Cells % 0.2 %
[2025-06-22 22:00] LABS: Alanine Aminotransferase 36 U/L (7-40); Alkaline Phosphatase 85 U/L (46-116); Anion Gap 10 (5-15); BUN/Creatinine Ratio 24.4 (10.0-20.0); Bilirubin, Total 0.5 mg/dL (0.2-1.0); Blood Urea Nitrogen 11 mg/dL (9-23); Calcium 9.9 mg/dL (8.7-10.4); Carbon Dioxide 24 mmol/L (20-31); Chloride 105 mmol/L (98-107); Glucose 101 mg/dL (74-106); Potassium 4.2 mmol/L (3.5-5.1); Sodium 139 mmol/L (136-145); Total Protein 7.6 g/dL (5.7-8.2)
[2025-06-22 22:09] LABS: Albumin 5.1 g/dL (3.2-4.8)
--- NOTE | 2025-06-22 22:13 | ED.PDOC ---
History of Present Illness HPI Comments 59 y/o obese M is BIBA from private residence for c/c palpitations, nonradiating, sternal chest pain, shortness of breath, and generalized weakness. Significant history of testicular cancer s/p right radical orchiectomy 05/29/2025, CHF, HTN, ischemic cardiomyopathy (post-AICD), and muscular dystrophy (wheelchair-bound since 2017). Patient endorses of 2x week history of symptoms, intermittently, with multiple accompanying hospital visits that yielded no significant acute findings. He describes being unable to 'expand [his] lungs' to 'catch a full breath' of air but emphasizes on condition being separate from his muscular dystrophy. Breathing improves whenever laying flat in a supine position. No endorsement of any recent ailments, sick contacts, injuries, strenuous activities, stressors, or further pertinent history. Denies on having any nausea, vomiting, cough, congestion, fever, chills, or further associated symptoms. 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 Notes, Medications, Allergies Allergies: Coded Allergies: Enoxaparin (Verified Allergy, Unknown, 07/18/24) Uncoded Allergies: steroids (Adverse Reaction, Severe, 06/03/25) cardiac Home Meds Active Scripts Cefdinir (Cefdinir) 300 Mg Cap, 300 MG PO BID for 10 Days, #20 CAP Prov:ABDI GROVER MD 04/04/25 Empagliflozin (Jardiance) 10 Mg Tab, 10 MG PO DAILY, #90 TAB Prov:TA BEAR MD 07/21/24 Metoprolol Succinate (Metoprolol Succinate Er) 25 Mg Tab, 50 TAB PO DAILY, #30 TAB 5 Refills Prov:SHANAE WALLACE MD 12/05/22 Reported Medications Hydrocodone-Acetaminophen (Hydrocodone Bitartrate/AC 10-325 mg) 1 Tab Tab, 1 TAB PO TID for 30 Days 07/21/24 Cephalexin Monohydrate (Cephalexin) 500 Mg Cap, 1 CAP PO QID for 5 Days, #20 07/21/24 Lisinopril (Lisinopril) 5 Mg Tab, 1 TAB PO DAILY 08/18/21 Fenofibrate (FENOFIBRATE) 145 Mg Tab, 1 TAB PO DAILY, #30 TAB 5 Refills 05/29/17 Cholecalciferol (VITAMIN D) 2,000 Unit Tab, 3000 UNIT PO DAILY, TAB 05/29/17 Spironolactone (Spironolactone) 25 Mg Tab, 1 TAB PO AM, #90 TAB 1 Refill 05/29/17 Folic Acid (Folic Acid) 1 Mg Tab, 1 MG PO DAILY, TAB 12/05/15 Carvedilol (Carvedilol) 6.25 Mg Tab, 6.25 MG PO BID, TAB 12/05/15 Information Source: Patient, Emergency Med Personnel Mode of Arrival: EMS Severity: Moderate Timing: Hours Duration: Since onset Prehospital treatment: 12 Lead EKG, Accucheck, 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 Past Medical History PAST MEDICAL HISTORY: Cancer (testicular cancer s/p right radical orchiectomy 05/29/2025), CHF, HTN Past Medical History (Other): ischemic cardiomyopathy (post-AICD) muscular dystrophy (wheelchair-bound since 2017) Surgical History: Pacemaker (AICD) Surgical History (Other): Right radical orchiectomy 05/29/2025 Family History Family History: Reviewed,noncontributory to illness, Unknown Social History Smoker: Non-Smoker, Quit Greater Than 1 Year Alcohol: Denies ETOH Use Drugs: Denies Drug Use Lives In: Home, Assisted Care All Other Systems: Reviewed and Negative (Comprehensive systems review obtained and negative except for what is stated in the HPI.) Physical Exam General Appearance: Mild Distress, Obese HEENT: Normal ENT Inspection, Pharynx Normal, TMs Normal Neck: Full Range of Motion, Non-Tender, Normal, Normal Inspection Respiratory: Chest Non-Tender, Lungs Clear, No Accessory Muscle Use, No Respiratory Distress, Normal Breath Sounds Cardiovascular: No Edema, No JVD, No Murmur, No Gallop, Normal Peripheral Pulses, Regular Rate/Rhythm Breast Exam: Deferred Gastrointestinal: No Organomegaly, Non Tender, No Pulsatile Mass, Normal Bowel Sounds, Soft Genitalia: Deferred Pelvic: Deferred Rectal: Deferred Extremities: No calf tenderness, Normal capillary refill, Normal inspection, Normal range of motion, Non-tender, No pedal edema Musculoskeletal : Apperance: Normal Neurologic: Alert, director of pulmonary unit II-XII nml as Tested, No Motor Deficits, Normal Affect, Normal Mood, No Sensory Deficits Cerebellar Function: Normal Reflexes: Normal Skin: Dry, Normal Color, Warm Lymphatic: No Adenopathy Was a procedure done? Was a procedure done?: No Differential Dx Considerations may include: acute CHF exacerbation, OK, PE, URI, PNA, PE, ACS, angina pectoris, anxiety, panic attack, among others X-Ray, Labs, Meds, VS Vital Signs Date Time Temp Pulse Resp B/P (MAP) Pulse Ox O2 Delivery O2 Flow Rate FiO2 06/22/25 21:44 98.6 87 17 110/69 (83) 98 98.6 06/22/25 21:30 99 Room Air* 0 21 06/22/25 21:00 97.9 85 16 128/84 99 97.9 Lab Test 06/22/25 21:25 06/22/25 21:23 06/22/25 21:13 Range/Units Blood Gas Specimen Type Venous Blood Gas Sample Site Vbg - n/a Blood Gas Patient Temperature 37.0 Arterial Blood Date Drawn [id number] Stan Test N/a Venous Blood pH 7.427 7.320-7.430 Venous Blood pCO2 at Patient Temp 38.7 38.0-54.0 mmHg Venous Blood pO2 at Patient Temp < 36.5 23.0-48.0 mmHg Venous Blood HCO3 24.9 22.0-29.0 mmol/L Venous Blood Base Excess 0.7 -2.0-3.0 mmol/L Blood Gas Modality Room air FiO2 % 21.0 Blood Gas Critical Value Read Back Yes White Blood Count 5.6 4.4-10.8 10^3/uL Red Blood Count 5.33 4.5-5.90 10^6/uL Hemoglobin 15.9 13.5-17.5 g/dL Hematocrit 45.4 41.0-53.0 % Mean Corpuscular Volume 85.2 80.0-100.0 fL Mean Corpuscular Hemoglobin 29.8 28.0-32.0 pg Mean Corpuscular Hemoglobin Concent 35.0 32.0-36.0 g/dL Red Cell Distribution Width 14.2 11.8-14.3 % Platelet Count 146 140-450 10^3/uL Mean Platelet Volume 8.2 6.9-10.8 fL Neutrophils (%) (Auto) 64.6 37.0-80.0 % Lymphocytes (%) (Auto) 24.9 10.0-50.0 % Monocytes (%) (Auto) 9.0 0.0-12.0 % Eosinophils (%) (Auto) 1.4 0.0-7.0 % Basophils (%) (Auto) 0.1 0.0-2.0 % Neutrophils # (Auto) 3.6 1.6-8.6 10 ^3/uL Lymphocytes # (Auto) 1.4 0.4-5.4 10 ^3/uL Monocytes # (Auto) 0.5 0-1.3 10 ^3/uL Eosinophils # (Auto) 0.1 0-0.8 10 ^3/uL Basophils # (Auto) 0 0-0.2 10 ^3/uL Nucleated Red Blood Cells 0.2 % D-Dimer, Quantitative 0.23 0.0-0.49 mg/L FEU Sodium Level 139 136-145 mmol/L Potassium Level 4.2 3.5-5.1 mmol/L Chloride Level 105 98-107 mmol/L Carbon Dioxide Level 24 20-31 mmol/L Anion Gap 10 5-15 Blood Urea Nitrogen 11 9-23 mg/dL Creatinine 0.45 L 0.700-1.30 mg/dL Glomerular Filtration Rate Calc 122 >90 mL/min BUN/Creatinine Ratio 24.4 H 10.0-20.0 Serum Glucose 101 74-106 mg/dL Calcium Level 9.9 8.7-10.4 mg/dL Total Bilirubin 0.5 0.2-1.0 mg/dL Aspartate Amino Transferase (AST) 27 13-40 U/L Alanine Aminotransferase (ALT) 36 7-40 U/L Alkaline Phosphatase 85 46-116 U/L Troponin I High Sensitivity 80 *H </=54 ng/L B-Type Natriuretic Peptide 35.72 0-100 pg/mL Total Protein 7.6 5.7-8.2 g/dL Albumin 5.1 H 3.2-4.8 g/dL POC Glucose 114 H 70-106 mg/dl [address] [address] Ph: [phone] DIAGNOSTIC IMAGING Diagnostic Imaging Report : [id number] Signed PATIENT: BIBI GUZMAN ACCT: [id number] UNIT: [id number] : 1965 LOC: ER ROOM / BED: / AGE / SEX: 59 / M ADM STATUS: REG ER SERVICE 07 ORDERING PHYSICIAN: TY LEE MD PROCEDURE(s): CXRP - CHEST PORTABLE REASON: SOB ORDER NUMBER(s): [id number], ACCESSION NUMBER(s): [id number] CLINICAL HISTORY: SOB TECHNIQUE: Single view of the chest was obtained. COMPARISON: XY CHEST PORTABLE on DOS: 05/27/25, CT CT ANGIO CHEST CONTRAST on DOS: 07/19/24, XY CHEST PORTABLE on DOS: 07/19/24, XY CHEST PORTABLE on DOS: 06/23/23, XY CHEST PORTABLE on DOS: 02/10/23 FINDINGS: There is a dual lead left chest wall pacing device. The heart size and pulmonary vasculature are normal. The lungs are clear. IMPRESSION: NO ACUTE CARDIOPULMONARY PROCESS. ATED BY: MIREYA BALLESTEROS MD DICTATED DATE/TIME: 06/22/252135 SIGNED BY: MIREYA BALLESTEROS MD SIGNED DATE/TIME: 06/22/252135 CC: Time of 1ST Reevaluation: 21:30 Reevaluation 1ST: Unchanged Patient Education/Counseling: Diagnosis, Treatment Family Education/Counseling: No Family Present SEPSIS Sepsis Screen Date sepsis recognized/suspect: Jun 22, 2025 Time Sepsis recognized/suspect: 2099 Recent Procedure: No On Antibiotic Therapy: No Respiratory Rate >20: No Heart Rate >90: Yes Temp<36 C (96.8 F) or >38.3 C: No SBP <90 or MAP <65 mmHG: No New Acute Mental Status Change: No Is the patient on CPAP, BIPAP,: No Physician Orders Troponin-I Hs (06/23/25 00:00) Troponin-I Hs (06/23/25 03:00) Troponin-I Hs (06/23/25 06:00) Chest Portable (06/22/25 21:08) Electrocardigram (06/22/25 21:08) Troponin-I Hs (06/23/25 00:08) Venous Blood Gas (06/22/25 21:08) Aspirin Tablet (06/23/25 00:00) Vital Signs Date Time Temp Pulse Resp B/P (MAP) Pulse Ox O2 Delivery O2 Flow Rate FiO2 06/22/25 21:44 98.6 87 17 110/69 (83) 98 98.6 06/22/25 21:30 99 Room Air* 0 21 06/22/25 21:00 97.9 85 16 128/84 99 97.9 Laboratory Tests Test 06/22/25 21:23 White Blood Count 5.6 10^3/uL (4.4-10.8) Departure 1 Departure Time of Disposition: 23:55 Impression: Primary Impression: ACS (acute coronary syndrome) Additional Impressions: Diastolic congestive heart failure Testicular cancer Disposition: ADMITTED INPATIENT Condition: Guarded Discharged With: Self Comments 59-year-old male with a history of testicular cancer now presents with generalized weakness and dyspnea with exertion. Troponin is elevated 80. Patient was given aspirin. Patient will need to be admitted for acute coronary syndrome and diastolic congestive heart failure Critical Care Note Critical Care Time?: Yes (35 min-critical care time only) Critical care comment: Total critical care time: Approximately 36 minutes Due to a high probability of clinically significant, life threatening deterioration, the patient required my highest level of preparedness to intervene emergently and I personally spent this critical care time directly and personally managing the patient. This critical care time included obtaining a history; examining the patient; pulse oximetry; ordering and review of studies; arranging urgent treatment with development of a management plan; evaluation of patient's response to treatment; frequent reassessment; and, discussions with other providers. This critical care time was performed to assess and manage the high probability of imminent, life-threatening deterioration that could result in multi-organ failure. It was exclusive of separately billable procedures and treating other patients. Stability Stability form required: No Heart Score Heart Score: Heart Score Response (Comments) Value History Moderate Suspicious 1 EKG Normal 0 Age 45-64 1 Risk Factors >3 or Hx ASHD 2 Troponin 1-2 x's Normal limit 1 Total 5 I personally scribed for TY LEE MD ([email or web address]) on 06/22/25 at 22:13. Electronically submitted by Lemuel Mazariegos ([email or web address]). I personally scribed for TY LEE MD ([email or web address]) on 06/22/25 at 22:23. Electronically submitted by Lemuel Mazariegos ([email or web address]). TY LEE MD Jun 22, 2025 22:13
--- NOTE | 2025-06-23 01:34 | DVHHPRES ---
History of Present Illness Resident Creating Document: AMBER DONAHUE History of Present Illness This is a 59-year-old male with past medical history of HFrEF 20%, ischemic cardiomyopathy, paroxysmal atrial fibrillation, muscular dystrophy (bed-bound since 2011), history of testicular cancer s/p radical orchiectomy on 05/2025, patient is currently on hospice in [place]. The patient presented to the ED reporting recent worsening of shortness of breaths associated with mild chest pain that comes and goes. The patient reports that he has not feeling well for the past two months, he states that after radical orchiectomy three weeks ago he started experiencing worsening of shortness of breaths. The patient admits that since the past four days he has has been having more issues taking deep breaths and feels that the respiratory muscles are not working as before. The patient states that occasionally has mild chest pain but is not present at this moment. The patient also reports associated hot flashes and feeling warm but denies fever or chills. The patient also reported recently tingling blood sputum when he was brushing his teeth three days back. Upon admission, CBC and CMP were grossly unremarkable but troponins were slightly elevated at 80. BNP and D- dimer were both on normal range. EKG showed sinus rhythm with right bundle branch block but no ST segment elevation or depression are no T-waves abnormalities. Initial chest x-ray was grossly unremarkable without evidence of clear consolidations. We will order a CT angio of the chest to completely rule out PE since the patient is bed-bound, with slight chest pain and shortness of breaths, we will also evaluate lung parenchyma. We will also test for COVID and influenza a and B. We will admit the patient for further assessment and management. Cardiovascular: CHF, KS, hyperipidemia Past Surgical History: Other (Total radical orchiectomy on 05/29) Family History: None Smoke: No ALCOHOL: none Drugs: None Lives: with Family Domestic Violence: Neg Review of Systems Constitutional: Yes: Weakness; No: Fever, Chills, Sweats, Malaise, Other Eyes: No: Pain, Vision change, Conjunctivae inflammation, Eyelid inflammation, Other, Redness ENT: No: Ear pain, Ear discharge, Nose pain, Nose discharge, Nose congestion, Mouth pain, Mouth swelling, Throat pain, Throat swelling, Other Respiratory: Shortness of breath; No: Cough, Dry, SOB with excertion, Wheezing, Hemoptysis, Pleuritic Pain, Sputum, Wheezing, Other Cardiovascular: Chest Pain, Palpitations; No: Orthopnea, Paroxysmal Noc. Dyspnea, Edema, Lt Headedness, Other Gastrointestinal: No: Nausea, Vomiting, Abdominal Pain, Diarrhea, Constipation, Melena, Hematochezia, Other Genitourinary: No Dysuria, No Frequency, No Incontinence, No Hematuria, No Retention, No Other Musculoskeletal: No: other, neck pain, shoulder pain, arm pain, back pain, hand pain, leg pain, foot pain Skin: No: Rash, Lesions, Jaundice, Bruising, Other Neurological: No: Weakness, Numbness, Incoordination, Change in speech, Confusion, Seizures, Other Allergies: Coded Allergies: Enoxaparin (Verified Allergy, Unknown, 07/18/24) Uncoded Allergies: steroids (Adverse Reaction, Severe, 06/03/25) cardiac Medications Current Medications Medications Dose Ordered Sig/Gia Route Start Time Stop Time Status Last Admin Dose Admin Acetaminophen 650 mg Q6HP PRN PO 06/23/25 01:00 Acetaminophen/ Hydrocodone Bitart 1 tab Q4HP PRN PO 06/23/25 01:00 Enoxaparin Sodium 40 mg DAILY SC 06/23/25 10:00 UNV Exam Vital Signs Vital Signs Date Time Temp Pulse Resp B/P (MAP) Pulse Ox O2 Delivery O2 Flow Rate FiO2 06/22/25 21:44 98.6 87 17 110/69 (83) 98 98.6 06/22/25 21:30 Room Air* 0 21 General Appearance: Alert, Oriented X3, Cooperative, mild distress HEENT: Atraumatic, PERRLA, EOMI, Mucous membr. moist/pink Respiratory: Clear to auscultation, Normal air movement Cardiovascular: Regular rate, Normal S1, Normal S2, No murmurs Abdominal: Normal bowel sounds, Soft, No tenderness, No hepatospenomegaly, No masses Extremities: No clubbing, No cyanosis, No edema, Normal pulses, No tenderness/swelling Skin: No rashes, No breakdown, No significant lesion Neuro: Normal speech, Sensation intact, Cranial nerves 3-12 NL, Reflexes 2+, Other (Patient is bed-bound due to severe advanced muscular dystrophy) Psych/Mental Status: Mental status NL, Mood NL Labs/Xrays Labs Test 06/23/25 00:22 06/22/25 21:25 06/22/25 21:23 06/22/25 21:13 Range/Units Troponin I High Sensitivity 80 *H </=54 ng/L Blood Gas Specimen Type Venous Blood Gas Sample Site Vbg - n/a Blood Gas Patient Temperature 37.0 Arterial Blood Date Drawn [id number] Stan Test N/a Venous Blood pH 7.427 7.320-7.430 Venous Blood pCO2 at Patient Temp 38.7 38.0-54.0 mmHg Venous Blood pO2 at Patient Temp < 36.5 23.0-48.0 mmHg Venous Blood HCO3 24.9 22.0-29.0 mmol/L Venous Blood Base Excess 0.7 -2.0-3.0 mmol/L Blood Gas Modality Room air FiO2 % 21.0 Blood Gas Critical Value Read Back Yes White Blood Count 5.6 4.4-10.8 10^3/uL Red Blood Count 5.33 4.5-5.90 10^6/uL Hemoglobin 15.9 13.5-17.5 g/dL Hematocrit 45.4 41.0-53.0 % Mean Corpuscular Volume 85.2 80.0-100.0 fL Mean Corpuscular Hemoglobin 29.8 28.0-32.0 pg Mean Corpuscular Hemoglobin Concent 35.0 32.0-36.0 g/dL Red Cell Distribution Width 14.2 11.8-14.3 % Platelet Count 146 140-450 10^3/uL Mean Platelet Volume 8.2 6.9-10.8 fL Neutrophils (%) (Auto) 64.6 37.0-80.0 % Lymphocytes (%) (Auto) 24.9 10.0-50.0 % Monocytes (%) (Auto) 9.0 0.0-12.0 % Eosinophils (%) (Auto) 1.4 0.0-7.0 % Basophils (%) (Auto) 0.1 0.0-2.0 % Neutrophils # (Auto) 3.6 1.6-8.6 10 ^3/uL Lymphocytes # (Auto) 1.4 0.4-5.4 10 ^3/uL Monocytes # (Auto) 0.5 0-1.3 10 ^3/uL Eosinophils # (Auto) 0.1 0-0.8 10 ^3/uL Basophils # (Auto) 0 0-0.2 10 ^3/uL Nucleated Red Blood Cells 0.2 % D-Dimer, Quantitative 0.23 0.0-0.49 mg/L FEU Sodium Level 139 136-145 mmol/L Potassium Level 4.2 3.5-5.1 mmol/L Chloride Level 105 98-107 mmol/L Carbon Dioxide Level 24 20-31 mmol/L Anion Gap 10 5-15 Blood Urea Nitrogen 11 9-23 mg/dL Creatinine 0.45 L 0.700-1.30 mg/dL Glomerular Filtration Rate Calc 122 >90 mL/min BUN/Creatinine Ratio 24.4 H 10.0-20.0 Serum Glucose 101 74-106 mg/dL Calcium Level 9.9 8.7-10.4 mg/dL Total Bilirubin 0.5 0.2-1.0 mg/dL Aspartate Amino Transferase (AST) 27 13-40 U/L Alanine Aminotransferase (ALT) 36 7-40 U/L Alkaline Phosphatase 85 46-116 U/L B-Type Natriuretic Peptide 35.72 0-100 pg/mL Total Protein 7.6 5.7-8.2 g/dL Albumin 5.1 H 3.2-4.8 g/dL POC Glucose 114 H 70-106 mg/dl SEPSIS Sepsis Screen Date sepsis recognized/suspect: Jun 22, 2025 Time Sepsis recognized/suspect: 2202 Recent Procedure: No On Antibiotic Therapy: No Respiratory Rate >20: No Heart Rate >90: No Temp<36 C (96.8 F) or >38.3 C: No SBP <90 or MAP <65 mmHG: No New Acute Mental Status Change: No Is the patient on CPAP, BIPAP,: No Physician Orders Chest Portable (06/22/25 21:08) Electrocardigram (06/22/25 21:08) Troponin-I Hs (06/23/25 00:08) Venous Blood Gas (06/22/25 21:08) Admit (06/23/25 00:56) Code Status (06/23/25 00:56) Vital Signs .PER UNIT PROTOCOL (06/23/25 00:56) Review Orders With Adm. (06/23/25 00:56) Maintain Bed Rest (06/23/25 00:56) Acetaminophen Tablet (Tylenol Tablet) (06/23/25 01:00) Notify Md Of Changes From Base (06/23/25 00:56) Advance Directive (06/23/25 00:56) Urinalysis (06/23/25 00:56) Complete Blood Count (06/23/25 04:56) Lipid Panel (06/23/25 00:56) Patient Condition (06/23/25 00:56) Allergies (06/23/25 00:56) Hydrocodone-Acet 5/325mg Tab ([place] 5/32 (06/23/25 01:00) Drug Screen (06/23/25 00:56) Enoxaparin Sodium (Lovenox) (06/23/25 10:00) Sodium Chloride 0.9% (06/23/25 01:15) Covid19 Antigen [facility] (06/23/25 ) Rapid Influenza A&B (06/23/25 01:05) Cardiac Diet-2gna,Lofat,Lochol (06/23/25 Breakfast) Strict I & O QSHIFT (06/23/25 04:05) Comprehensive Metabolic Panel (06/23/25 04:05) Ct Angio Chest Contrast (06/23/25 01:05) Vital Signs Date Time Temp Pulse Resp B/P (MAP) Pulse Ox O2 Delivery O2 Flow Rate FiO2 06/22/25 21:44 98.6 87 17 110/69 (83) 98 98.6 06/22/25 21:30 99 Room Air* 0 21 06/22/25 21:00 97.9 85 16 128/84 99 97.9 Laboratory Tests Test 06/22/25 21:23 White Blood Count 5.6 10^3/uL (4.4-10.8) Medications Medications Dose Ordered Sig/Gia Route Start Time Stop Time Status Last Admin Dose Admin Aspirin 162 mg ONCE ONCE PO 06/23/25 00:00 06/23/25 00:01 DC 06/23/25 00:05 162 MG Assessment/Plan Assessment/Plan Assessment/plan Acute hypoxic respiratory failure, R/O pulmonary embolism Acute respiratory failure likely due to advanced muscular dystrophy History of testicular cancer with a radical orchiectomy, R/O lung metastasis Acute on chronic systolic heart failure (HFrEF 20%) NSTEMI likely type II, poss due to above Possible viral pneumonia Plan -initial checks were was grossly unremarkable without evidence of clear consolidations -ordered CT angio of the chest to rule out PE and to evaluate lung parenchyma to exclude metastasis -D-dimer and BNP were normal range -troponins came back slightly elevated at 80 but EKG showed sinus rhythm with right bundle branch block but no ST segment elevation or depression or any T- waves abnormalities -trend troponins -gave small bolus of 500 cc of IV fluids -restarted guided medical therapy for heart failure, metoprolol succinate 25 mg daily, spironolactone 25 mg daily, lisinopril 5 mg daily -we will test for COVID and influenza a and B -start cardiac diet -strict in's and out -last echocardiogram performed on 05/28/25 showed LVEF of 20% Goals of care discussed with the patient at bedside, full code Plan discussed with Dr. Todd Plan discussed with: Patient My Orders Orders - AMBER DONAHUE Procedure Category Date Status Time Admit ADMIT 06/23/25 Transmitted 00:56 Code Status CODE 06/23/25 Transmitted 00:56 Vital Signs [facility] 06/23/25 In Process 00:56 Review Orders With [facility] 06/23/25 In Process Adm. 00:56 Maintain Bed Rest [facility] 06/23/25 In Process 00:56 Acetaminophen Tablet [facility] 06/23/25 In Process (Tylenol Tablet) 01:00 Notify Of Changes [facility] 06/23/25 In Process From Base 00:56 Advance Directive [facility] 06/23/25 In Process 00:56 Urinalysis LAB 06/23/25 Logged 00:56 Complete Blood Count LAB 06/23/25 Logged 04:56 Lipid Panel LAB 06/23/25 Logged 00:56 Patient Condition ORDERS 06/23/25 Transmitted 00:56 Allergies [facility] 06/23/25 In Process 00:56 Hydrocodone-Acet PHA 06/23/25 In Process 5/325mg Tab ([place] 01:00 Drug Screen LAB 06/23/25 Logged 00:56 Enoxaparin Sodium PHA 06/23/25 Pending (Lovenox) 10:00 Sodium Chloride 0.9% PHA 06/23/25 Logged 01:15 Covid19 Antigen [facility] LAB 06/23/25 Logged Rapid Influenza A&B LAB 06/23/25 Logged 01:05 Cardiac DIET 06/23/25 Transmitted Diet-2gna,Lofat,Lochol Breakfast Strict I & O [facility] 06/23/25 In Process 04:05 Comprehensive LAB 06/23/25 Logged Metabolic Panel 04:[address] 06/23/25 Logged Contrast 01:05 Date of Service: Jun 23, 2025 Billing Provider: EUGENIE TODD MD Common Visit Codes: 85926-[id number] INP/OBS CARE (HIGH) Secondary Visit Codes: [id number] CARE PLAN 30 MINUTES AMBER DONAHUE RESIDENT Jun 23, 2025 01:34
[2025-06-23] MEDS: IOHEXOL 350 MG/ML 100ML IJ ONE (01:38)
[2025-06-23] MEDS: SODIUM CHLORIDE 0.9% 500 ML IV ONE (01:40)
[2025-06-23] MEDS: SPIRONOLACTONE 25 MG TAB PO ONE (01:59)
--- NOTE | 2025-06-23 02:25 | DVH ---
STUDY: CT CT ANGIO CHEST CONTRAST Indication: R/O PE AND EVAL LUNG PARENCHYMA TECHNIQUE: Axial images were obtained through the chest with reformat images post intravenous contr ast. Reconstruction processing of 3D angiographic images of the vessels was obtained. 80 mL of omnipaque 35mg/dl was administered. DLP: [id number] FINDINGS: Left chest pacer. PULMONARY ARTERIES: Limited evaluation due to motion artifact and contrast bolus/timing. Evaluation of segmental and subsegmental branches are incomplete due to this limitation. No acute pulmonary emboli within the main or lobar branches. LUNGS AND PLEURA: No focal consolidations. Mild pulmonary emphysema. Biapical pneumatoceles. No definite pulmonary joselin a. No mass or nodule. No pleural effusion. No pneumothorax. MEDIASTINUM: No lymphadenopathy or mass. The heart shows no acute findings. The aorta shows no acute findings. The pulmonary trunk, and branches of the vessels in the mediastinu m are within normal limits. SUPRACLAVICULAR AND AXILLARY: No abnormalities seen in these regions. No mass or significant lymphadenopathy. UPPER ABDOMEN: The visualized upper abdomen is unremarkable. BONES AND SOFT TISSUES: The ribs are unremarkable. The visualized spine shows no significant acute findings. No focal bony mass lesions noted. The subcutaneous soft tissues are unremarkable. IMPRESSION: Limited evaluation due to motion artifact and contrast bolus/timing. Evaluation of segmental and subsegmental branches are incomplete due to this limitation. No acute pul monary emboli within the main or lobar branches. No focal consolidation. Mild pulmonary emphysema.
--- NOTE | 2025-06-23 02:27 | ECG ---
[facility] Test Date: 2025-06-22 Test Time: 20:55:31 Pat Name: BIBI GUZMAN Department: [facility] ED Patient ID: [id number] Room: 0271T Gender: M Periodontal Assistant: DENISE : 1965 Requested By: TY LEE Order Number: [id number] Reading MD: Kole Fair Measurements Intervals [place] Rate: 75 P: 65 MN: 128 QRS: 97 QRSD: 143 T: 59 QT: 393 QTc: 439 Interpretive Statements Sinus rhythm Right bundle branch block Electronically Signed On 06-23-2025 22:58:57 PDT by Kole Fair Please click the below link to view image of tracing.
[2025-06-23 02:43] LABS: COVID19 ANTIGEN SOFIA FIA NEGATIVE (NEGATIVE)
[2025-06-23] MEDS: HYDROcodone-ACET 5/325MG TAB PO PRN (02:51)
[2025-06-23 03:13] LABS: Cholesterol 159 mg/dL (< 200); HDL Cholesterol 46 mg/dL (40-59)
[2025-06-23] MEDS: ACETAMINOPHEN 325 MG TAB PO PRN (03:20)
[2025-06-23 03:27] LABS: Triglycerides 174 mg/dL (< 150)
[2025-06-23 04:20] LABS: Urine Protein, UAD Negative (Negative)
[2025-06-23 04:27] LABS: Amphetamine Screen, Urine Neg (NEGATIVE); Barbiturate Scree,Urine Neg (NEGATIVE); Benzodiazephine Screen, Urine Neg (NEGATIVE); Cannabinoid Screen, Urine Neg (NEGATIVE); Cocaine Screen, Urine Neg (NEGATIVE); Opiate Scree,Urine Neg (NEGATIVE)
[2025-06-23 04:31] LABS: Hematocrit 40.3 % (41.0-53.0); Hemoglobin 14.1 g/dL (13.5-17.5); Mean Corpuscular Hemoglobin 29.6 pg (28.0-32.0); Mean Corpuscular Volume 84.8 fL (80.0-100.0); Nucleated Red Blood Cells % 0.1 %
[2025-06-23 04:44] LABS: Alkaline Phosphatase 69 U/L (46-116); Anion Gap 9 (5-15); Calcium 9.0 mg/dL (8.7-10.4); Carbon Dioxide 24 mmol/L (20-31); Chloride 104 mmol/L (98-107); Glucose 94 mg/dL (74-106); Sodium 137 mmol/L (136-145); Total Protein 6.4 g/dL (5.7-8.2)
[2025-06-23 04:45] LABS: Albumin 4.2 g/dL (3.2-4.8); Bilirubin, Total 0.4 mg/dL (0.2-1.0)
[2025-06-23 04:48] LABS: BUN/Creatinine Ratio 60.0 (10.0-20.0)
[2025-06-23 04:49] LABS: Alanine Aminotransferase 31 U/L (7-40); Blood Urea Nitrogen 21 mg/dL (9-23); Potassium 4.2 mmol/L (3.5-5.1)
[2025-06-23 05:27] VITALS: BP 128/88; PULSE 76; RESP 16; TEMP 97.7; O2SAT 100
[2025-06-23 05:44] LABS: Phencyclidine Screen, Urine Neg (NEGATIVE)
[2025-06-23 08:00] VITALS: PULSE 86
[2025-06-23 09:00] VITALS: BP 118/75; PULSE 71; RESP 16; TEMP 98.2; O2SAT 98
[2025-06-23] MEDS: LISINOPRIL 5 MG TAB PO SCH ×2 (09:11→13:00)
[2025-06-23] MEDS: METOPROLOL SUCCINATE XL 50 MG TAB PO SCH (09:12)
[2025-06-23] MEDS ORDERED: PATIENTS OWN MEDICATION (Carvedilol 6.25 MG) PO SCH (10:00)
[2025-06-23] MEDS ORDERED: ENOXAPARIN SOD 40 MG/0.4 ML SYRINGE SC SCH (10:00)
[2025-06-23] MEDS: EMPAGLIFLOZIN 10 MG TAB PO SCH (11:58)
[2025-06-23] MEDS: CARVEDILOL 3.125 MG TAB PO SCH (12:02)
[2025-06-23 13:00] VITALS: BP 116/68; PULSE 87; RESP 17; TEMP 97.5; O2SAT 99
[2025-06-23] MEDS: SPIRONOLACTONE 25 MG TAB PO SCH (13:00)
--- NOTE | 2025-06-23 14:23 | DVHINCON2 ---
Date Seen: Jun 23, 2025 Referring Physician MD Jayde Reason for Consultation Elevated trops History of Present Illness This is a 59-year-old man who presented to the emergency room via EMS with multiple complaints including shortness of breath for 10 days. The patient complains of mild shortness of breath associated with intermittent palpitations and chest pain described as substernal and triggered by sitting up or moving. He underwent a 12 lead electrocardiogram revealing a sinus rhythm with a associated right bundle branch block. Serial troponin levels have remained flat in the 80s ng/L. Follows up in the outpatient setting with Dr. True Schwartz. Cardiology consulted for elevated troponin levels and ischemic cardiomyopathy. The patient only reports a history of a left cardiac catheterization and coronary angiogram without catheter based intervention given negative coronary artery disease prior to Bi-V AICD placement at [facility] in 2016. Significant medical history includes nonischemic cardiomyopathy, status post Bi-V AICD ([employer] 2016) status post lead fractures (likely 2/2 to w/c use) in 2020 and 2023 with revisions at [facility] and advised for the use of therapeutic shocks only with no pacemaker use, muscular dystrophy with wheelchair use, hypertension, and testicular cancer status post right orchiectomy 05/2025. Past Medical History Past medical history reviewed. No other significant than mentioned above. Past Surgical History Cardiac catheterization without catheter based intervention, 2016 Bi-V ICD (Medtronic) initial implantation in 2016 with fractured wires in 2020 & 2023 Family History: Alcoholism G8 MOTHER, GRANDFATHER Diabetes mellitus GRANDFATHER Family history: Cardiovascular disease Family History Family history reviewed. Social History Denies the use of illicit drugs, alcohol, or tobacco use. Allergies: Coded Allergies: Enoxaparin (Verified Allergy, Unknown, 07/18/24) Uncoded Allergies: steroids (Adverse Reaction, Severe, 06/03/25) cardiac Home Meds Active Scripts Cefdinir (Cefdinir) 300 Mg Cap, 300 MG PO BID for 10 Days, #20 CAP Prov:ABDI GROVER MD 04/04/25 Empagliflozin (Jardiance) 10 Mg Tab, 10 MG PO DAILY, #90 TAB Prov:TA BEAR MD 07/21/24 Metoprolol Succinate (Metoprolol Succinate Er) 25 Mg Tab, 50 TAB PO DAILY, #30 TAB 5 Refills Prov:SHANAE WALLACE MD 12/05/22 Reported Medications Hydrocodone-Acetaminophen (Hydrocodone Bitartrate/AC 10-325 mg) 1 Tab Tab, 1 TAB PO TID for 30 Days 07/21/24 Cephalexin Monohydrate (Cephalexin) 500 Mg Cap, 1 CAP PO QID for 5 Days, #20 07/21/24 Lisinopril (Lisinopril) 5 Mg Tab, 1 TAB PO DAILY 08/18/21 Fenofibrate (FENOFIBRATE) 145 Mg Tab, 1 TAB PO DAILY, #30 TAB 5 Refills 05/29/17 Cholecalciferol (VITAMIN D) 2,000 Unit Tab, 3000 UNIT PO DAILY, TAB 05/29/17 Spironolactone (Spironolactone) 25 Mg Tab, 1 TAB PO AM, #90 TAB 1 Refill 05/29/17 Folic Acid (Folic Acid) 1 Mg Tab, 1 MG PO DAILY, TAB 12/05/15 Carvedilol (Carvedilol) 6.25 Mg Tab, 6.25 MG PO BID, TAB 12/05/15 Home Meds Home medications reviewed. Current Medications Current Medications Medications (Trade) Dose Ordered Sig/Gia Route PRN Reason Start Time Stop Time Status Last Admin Acetaminophen (Tylenol Tablet) 650 mg Q6HP PRN PO PAIN SCALE 1-3 OR TEMP>100.4 06/23/25 01:00 06/23/25 03:20 Acetaminophen/ Hydrocodone Bitart ([place] 5/325MG Tab) 1 tab Q4HP PRN PO MODERATE PAIN (4-6 PAIN SCALE) 06/23/25 01:00 Enoxaparin Sodium (Lovenox) 40 mg DAILY SC 06/23/25 10:00 Hold Metoprolol Succinate (Toprol Xl) 25 mg DAILY PO 06/23/25 10:00 06/23/25 09:34 DC Lisinopril (Zestril Tablet) 5 mg DAILY PO 06/23/25 10:00 06/23/25 09:35 DC 06/23/25 09:11 Spironolactone (Aldactone) 25 mg DAILY PO 06/24/25 10:00 Cancel Empaglifozin (Jardiance) 10 mg DAILY PO 06/23/25 10:00 06/23/25 11:58 Lisinopril (Zestril Tablet) 5 mg DAILY PO 06/23/25 13:00 Spironolactone (Aldactone) 25 mg DAILY PO 06/23/25 13:00 Patient Own Medication 6.25 mg BID PO 06/23/25 10:00 Cancel Carvedilol (Coreg Tablet) 6.25 mg BID PO 06/23/25 10:00 Review of Systems Constitutional: No symptom reported Ears, Nose, & Throat: No symptom reported Eyes: No symptom reported Neurological: No symptoms reported Pulmonary/Respiratory: SOB Cardiovascular: Palpitations Gastrointestinal: No symptom reported Genitourinary: No symptom reported Musculoskeletal: Chest pain Skin: No symptom reported Psychiatric: No symptom reported Endocrine: No symptom reported Hemotologic/Lymphatic: No symptom reported Vital Signs Vital Signs Date Time Temp Pulse Resp B/P (MAP) Pulse Ox O2 Delivery O2 Flow Rate FiO2 06/23/25 09:11 118/75 06/23/25 09:00 98.2 71 16 98 98.2 06/23/25 05:27 Room Air* 0 21 Physical Exam General Appearance: Cooperative. Loss of tone to lower extremities.. In no acute distress Head Exam: Normal inspection Neck Exam: Normal inspection. Non-tender. Normal alignment Pulmonary/Respiratory: Chest non-tender. Clear bilateral breath sounds Cardiovascular/Chest: Regular rate and rhythm. S1, S2. NSR with RBBB. No murmurs. No JVD. Peripheral Pulses: 2+ Radial (R). 2+ Radial (L). 2+ Pedal (R). 2+ Pedal (L) Abdominal Exam: Normal bowel sounds. Ankle Exam: Negative ankle edema Lower extremities: Negative lower extremity edema. Loss of tone to bilateral lower extremities Neuro/Mental Status: A&O x4. Coherent Thoughts/Psych: Normal thought pattern. Appropriate mood and affect. Good judgement and insight Appearance: In no acute distress Skin Exam: Normal inspection. Normal color. Warm. Dry Labs/Diagnostic Data Labs Test 06/23/25 03:47 06/23/25 02:14 06/23/25 01:31 06/23/25 00:22 Range/Units White Blood Count 6.0 4.4-10.8 10^3/uL Red Blood Count 4.76 4.5-5.90 10^6/uL Hemoglobin 14.1 13.5-17.5 g/dL Hematocrit 40.3 #L 41.0-53.0 % Mean Corpuscular Volume 84.8 80.0-100.0 fL Mean Corpuscular Hemoglobin 29.6 28.0-32.0 pg Mean Corpuscular Hemoglobin Concent 34.9 32.0-36.0 g/dL Red Cell Distribution Width 13.7 11.8-14.3 % Platelet Count 142 140-450 10^3/uL Mean Platelet Volume 8.2 6.9-10.8 fL Neutrophils (%) (Auto) 66.8 37.0-80.0 % Lymphocytes (%) (Auto) 22.2 10.0-50.0 % Monocytes (%) (Auto) 9.4 0.0-12.0 % Eosinophils (%) (Auto) 1.5 0.0-7.0 % Basophils (%) (Auto) 0.1 0.0-2.0 % Neutrophils # (Auto) 4.0 1.6-8.6 10 ^3/uL Lymphocytes # (Auto) 1.3 0.4-5.4 10 ^3/uL Monocytes # (Auto) 0.6 0-1.3 10 ^3/uL Eosinophils # (Auto) 0.1 0-0.8 10 ^3/uL Basophils # (Auto) 0 0-0.2 10 ^3/uL Nucleated Red Blood Cells 0.1 % Sodium Level 137 136-145 mmol/L Potassium Level 4.2 3.5-5.1 mmol/L Chloride Level 104 98-107 mmol/L Carbon Dioxide Level 24 20-31 mmol/L Anion Gap 9 5-15 Blood Urea Nitrogen 21 # 9-23 mg/dL Creatinine 0.35 L 0.700-1.30 mg/dL Glomerular Filtration Rate Calc 132 >90 mL/min BUN/Creatinine Ratio 60.0 H 10.0-20.0 Serum Glucose 94 74-106 mg/dL Calcium Level 9.0 8.7-10.4 mg/dL Total Bilirubin 0.4 0.2-1.0 mg/dL Aspartate Amino Transferase (AST) 46 H 13-40 U/L Alanine Aminotransferase (ALT) 31 7-40 U/L Alkaline Phosphatase 69 46-116 U/L Total Protein 6.4 5.7-8.2 g/dL Albumin 4.2 3.2-4.8 g/dL Troponin I High Sensitivity 89 *H </=54 ng/L Influenza Type A Antigen Negative Negative Influenza Type B Antigen Negative Negative SARS-CoV-2 Antigen (Rapid) Negative NEGATIVE Triglycerides Level 174 H < 150 mg/dL Cholesterol Level 159 < 200 mg/dL LDL Cholesterol 85 < 100 mg/dL HDL Cholesterol 46 40-59 mg/dL Test 06/22/25 22:00 06/22/25 21:25 06/22/25 21:23 06/22/25 21:13 Range/Units Urine Color Light-yellow Yellow Urine Clarity Clear Clear Urine pH 6.5 5.0-9.0 Urine Specific [place] 1.018 1.001-1.035 Urine Protein Negative Negative Urine Ketones Negative Negative Urine Blood Negative Negative /uL Urine Nitrite Negative Negative Urine Bilirubin Negative Negative Urine Urobilinogen Normal Negative mg/dL Urine Leukocyte Esterase Negative Negative /uL Urine RBC 1 0 - 3 /hpf Urine Microscopic WBC < 1 0-3 /HPF Urine Squamous Epithelial Cells None seen <5 /hpf Urine Bacteria None seen None Seen /hpf Urine Glucose Normal Normal mg/dL Urine Opiates Screen Neg NEGATIVE Urine Fentanyl Screen Neg NEGATIVE Urine Barbiturates Screen Neg NEGATIVE Urine Phencyclidine Screen Neg NEGATIVE Urine Amphetamines Screen Neg NEGATIVE Urine Benzodiazepines Screen Neg NEGATIVE Urine Cocaine Screen Neg NEGATIVE Urine Cannabinoids Screen Neg NEGATIVE Blood Gas Specimen Type Venous Blood Gas Sample Site Vbg - n/a Blood Gas Patient Temperature 37.0 Arterial Blood Date Drawn [id number] Stan Test N/a Venous Blood pH 7.427 7.320-7.430 Venous Blood pCO2 at Patient Temp 38.7 38.0-54.0 mmHg Venous Blood pO2 at Patient Temp < 36.5 23.0-48.0 mmHg Venous Blood HCO3 24.9 22.0-29.0 mmol/L Venous Blood Base Excess 0.7 -2.0-3.0 mmol/L Blood Gas Modality Room air FiO2 % 21.0 Blood Gas Critical Value Read Back Yes D-Dimer, Quantitative 0.23 0.0-0.49 mg/L FEU B-Type Natriuretic Peptide 35.72 0-100 pg/mL POC Glucose 114 H 70-106 mg/dl Assessment Noncardiac chest pain, likely musculoskeletal Nonischemic/dilated cardiomyopathy with LVEF 25% Chronic compensated cardiomyopathy Presence of Bi-V ICD with lead fractures (only use for therapeutic shocks, Medtr[employer]) Dyslipidemia Muscular dystrophy Hospice care prior to admission Plan/Recommendation (Dr. Ross) The patient presents with noncardiac chest pain likely musculoskeletal in nature. Most recent transthoracic echocardiogram revealed LVEF of 25% with global hypokinesis. Continue GDMT for CHF and uptitrate as tolerated. Initiate DVT/VTE prophylaxis. Currently with presence of Bi-V ICD with previous lead fractures and use for therapeutic shocks only. Continue follow-up with Dr. Prashant Schwartz as scheduled. On hospice care prior to admission. Consider goals of care. There is no further cardiac workup indicated at this time. Thank you for allowing us to participate in this patient's care. Please call if you have any questions or concerns. This medical document was created using an electronic medical record system with voice recognition software and computerized dictation system. Although this document has been carefully reviewed, there might still be some phonetic and typographical errors. Occasional wrong-word or ``sound-alike substitutions may have occurred due to the inherent limitations of voice recognition software. These areas are purely typographical due to imperfections of the software programs and do not reflect any compromise in the patient's medical care. Please read the chart carefully and recognize, using context, where these substitutions have occurred. Plan discussed with: Patient, Other NYHA Physical activity limitations: Class2(Slight)fatigue,sob (palpitatns, angina w activityv) Date of Service: Jun 23, 2025 Billing Provider: ANJU GIPSON Cardiology Common Codes: 43313-HHMLCUT INP/OBS CARE (High) ANJU GIPSON Jun 23, 2025 14:22
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
[2025-06-23] MEDS ORDERED: ENOXAPARIN SOD 30 MG/0.3 ML SYRINGE SC ONE (15:15)
[2025-06-23 17:00] VITALS: BP 122/88; PULSE 69; RESP 16; TEMP 97.6; O2SAT 100
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
[2025-06-24] MEDS ORDERED: ENOXAPARIN SOD 30 MG/0.3 ML SYRINGE SC SCH (10:00)
[2025-06-24] MEDS ORDERED: SPIRONOLACTONE 25 MG TAB PO SCH (10:00)
== END 2025-06-23 20:00 | disposition hospice, home (50) | DRG 280 ==
LOC: EDBD 20:50 → ER 20:50 → OVERFLOW 06-23 00:56 → TELE-WESTW 06-23 05:26
PROVIDERS: ADMIT Internal Medicine Geriatric Medicine; ATTEND Internal Medicine Geriatric Medicine
DX: I11.0 Hypertensive heart disease with heart failure (principal); I50.23 Acute on chronic systolic (congestive) heart failure; I21.A1 Myocardial infarction type 2; J96.01 Acute respiratory failure with hypoxia; I42.0 Dilated cardiomyopathy; I25.5 Ischemic cardiomyopathy; G71.00 Muscular dystrophy, unspecified; E78.5 Hyperlipidemia, unspecified; I48.0 Paroxysmal atrial fibrillation; I45.10 Unspecified right bundle-branch block; E66.9 Obesity, unspecified; Z79.84 Long term (current) use of oral hypoglycemic drugs; Z79.899 Other long term (current) drug therapy; Z99.3 Dependence on wheelchair; Z95.810 Presence of automatic (implantable) cardiac defibrillator; Z85.47 Personal history of malignant neoplasm of testis; Z51.5 Encounter for palliative care; Z82.49 Family history of ischemic heart disease and other diseases of the circulatory system; Z83.3 Family history of diabetes mellitus; Z88.8 Allergy status to other drugs, medicaments and biological substances; Z68.25 Body mass index [BMI] 25.0-25.9, adult
CPT/HCPCS: 36415; 36600; 71045; 71275; 80053; 80061; 80307; 81001; 82805; 82962; 83880; 84484; 85025; 85379; 87081; 87426; 87804; 93005; 99291; G0378